=== PATIENT | female | born 1975 | race Caucasian/White ===

== ENCOUNTER 2017-02-14 08:30 | Outpatient (RCR) | payer OTHER, SELFPAY | END 2017-03-15 23:59 | LOC: NS 08:30 | PROVIDERS: Family Provider Family Medicine; PCP Family Medicine; Visit Provider Family Medicine | DX: E66.9 Obesity, unspecified (principal); Z68.21 Body mass index [BMI] 21.0-21.9, adult; Z71.3 Dietary counseling and surveillance | CPT/HCPCS: 97803 ==

== ENCOUNTER → 2017-04-13 08:29 | Outpatient (CLI) | payer OTHER, SELFPAY ==
--- NOTE | 2017-04-13 08:40 | US_ITS ---
STUDY: ABDOMINAL ULTRASOUND - RIGHT UPPER QUADRANT REASON FOR VISIT: Female, 42 years old. Right upper quadrant pain TECHNIQUE: Ultrasound evaluation of the right upper quadrant was performed with real-time and static scott-scale imaging. TECHNICAL QUALITY: Limited. Examination limited by bowel gas. COMPARISON: None. FINDINGS: Liver: The liver measures 13.6 cm. There is normal echogenicity of the liver. The bile ducts are within normal limits. There is hepatic color flow. The direction of portal flow is hepatopetal. There is no demonstrated mass lesion. Gallbladder: Normal distended gallbladder. The gallbladder wall measures 2 mm. There is a negative sonographic Rodas's sign. There is no pericholecystic fluid. There are no gallstones. Common Bile Duct (C.B.D.): The common bile duct measures 3 mm. Pancreas: Normal size of the head, body and tail of the pancreas. There is normal echogenicity of the pancreas. There is no demonstrated pancreatic mass or cyst. Right Kidney: Normal size of the right kidney. The right kidney measures 9.9 cm. Normal renal cortex. The right cortex measures 1.6 cm. There is no demonstrated renal mass or cyst. There is no right hydronephrosis. US/Abdomen Limited IMPRESSION: Normal right upper quadrant ultrasound examination. Electronically Signed: Florentin Reyna MD at 17:30 EST , Service support ,
== END ==
PROVIDERS: Family Provider Family Medicine; PCP Family Medicine; Visit Provider Surgery
DX: R10.11 Right upper quadrant pain (principal)
CPT/HCPCS: 76705

== ENCOUNTER → 2017-04-21 07:13 | Outpatient (CLI) | payer OTHER, SELFPAY ==
--- NOTE | 2017-04-21 07:15 | NM_ITS ---
CLINICAL: 42-year-old female with reported history of right upper quadrant abdominal pain and nausea. RADIONUCLIDE HEPATOBILIARY SCINTIGRAPHY COMPARISON: Abdominal ultrasound report 04/13/2017 FINDINGS: Following the intravenous administration of 5.3 mCi of 99m Tc Mebrofenin, hepatobiliary images reveal: 1. Relatively prompt and homogeneous radiopharmaceutical concentration is noted by a normal sized liver. No parenchymal defects are identified. 2. Gallbladder activity is identified at 45 minutes post radiopharmaceutical administration. 3. Small intestinal tract is observed at 15 minutes following tracer injection. 4. Washout of the radiopharmaceutical by the hepatic parenchyma appears qualitatively normal. The patient was administered a fatty meal (8 ounces BOOST-30 grams fat). The post fatty meal consumption gallbladder ejection fraction calculated at 60 minutes was noted to be 47.0 % (normal greater than 30%). IA/Hepatobilliary Img w/Pharm Int IMPRESSION: 1. NORMAL 99m Tc Mebrofenin hepatobiliary imaging examination with fatty meal ingestion. A. A gallbladder ejection fraction calculated to be greater than 30% following the administration of a consumed fatty meal makes the probability of functional hepatobiliary disease (gallbladder and/or sphincter of Oddi dyskinesia) and/or organic hepatobiliary disease (chronic acalculous cholecystitis and/or cystic duct syndrome) to be low. (Ko and Shahzad, J Nucl Med 43: 1603, 2002). Electronically Signed: Murray Escobar DO at 12:59 EST Tel , Service support ,
== END ==
PROVIDERS: Family Provider Family Medicine; PCP Family Medicine; Visit Provider Surgery
DX: R10.11 Right upper quadrant pain (principal)
CPT/HCPCS: 78227; A9537

== ENCOUNTER 2017-06-05 15:35 | Outpatient (RCR) | payer OTHER, SELFPAY | END 2017-06-12 23:59 | LOC: NS 15:35 | PROVIDERS: Family Provider Family Medicine; PCP Family Medicine; Visit Provider Family Medicine | DX: E66.9 Obesity, unspecified (principal); Z68.21 Body mass index [BMI] 21.0-21.9, adult; Z71.3 Dietary counseling and surveillance | CPT/HCPCS: 97803 ==

== ENCOUNTER → 2017-07-03 16:49 | Outpatient (CLI) | payer OTHER, SELFPAY ==
[2017-07-03 18:36] LABS: Anion Gap 9 (5-15); BUN 12 mg/dL (7-18); BUN/Creat Ratio 25.1 RATIO (10-20); Calcium,Total 8.5 mg/dL (8.5-10.1); Chloride 104 mmol/L (98-107); Creatinine, Serum 0.48 mg/dL (0.55-1.02); EST Glomerular Filtration Rate 150 mL/min (>60); Est Glom Filt Rate - Afr Amer 182 mL/min (>60); Free T3 2.6 pg/mL (2.18-3.98); Glucose 81 mg/dL (74-106); Potassium 3.7 mmol/L (3.5-5.1); Sodium Level 138 mmol/L (136-145); T4 Total, Thyroxin 7.4 ug/dL (4.8-13.9); Thyroid Stim Hormone (TSH) 0.83 uIU/mL (0.358-3.74)
== END ==
PROVIDERS: Family Provider Family Medicine; PCP Family Medicine; Visit Provider Family Medicine
DX: I10 Essential (primary) hypertension (principal); E03.9 Hypothyroidism, unspecified
CPT/HCPCS: 36415; 80048; 84436; 84443; 84481

== ENCOUNTER → 2017-08-23 06:45 | Outpatient (CLI) | payer OTHER, SELFPAY ==
[2017-08-23 08:08] LABS: T4 Free Direct 0.88 ng/dL (0.76-1.46); Thyroid Stim Hormone (TSH) 0.57 uIU/mL (0.358-3.74)
== END ==
PROVIDERS: Family Provider Family Medicine; PCP Family Medicine; Visit Provider Family Medicine
DX: E03.9 Hypothyroidism, unspecified (principal)
CPT/HCPCS: 84439; 84443

== ENCOUNTER → 2017-10-25 07:35 | Outpatient (CLI) | payer OTHER, SELFPAY ==
--- NOTE | 2017-10-25 07:36 | BI_ITS ---
MAMMOGRAPHY - BILATERAL SCREENING REASON FOR EXAM: Female, 42 years old. Routine annual screening examination. PERTINENT HISTORY: Non-contributory. TECHNIQUE: Digital bilateral breast ramona (3D mammographic acquisition) in the CC and MLO projections. 2-D mediolateral oblique (MLO) and craniocaudad (CC) views of both breasts were obtained. CAD: Full Field Digital Mammography with Computer Added Detection was performed. COMPARISON: Comparison is made with prior study dated August 19, 2016 and August 14, 2015. FINDINGS: Breast Composition: The breasts are heterogeneously dense, which may obscure small masses. There are no dominant masses or suspicious calcifications. No other significant abnormalities are identified. There has been no significant change since the prior study. BI/SCREENING MAMM (CAD), BILAT IMPRESSION: Stable bilateral screening mammogram. Yearly follow-up mammogram recommended. (A) ASSESSMENT CATEGORY: BIRADS Category 1: Negative. A letter regarding these results will be sent to the patient by the facility within 30 days. Approximately 10% of breast cancers are not detected by mammography. A normal mammogram should not delay biopsy of a clinically suspicious abnormality. [id number] Electronically Signed: Kedar Hernandez MD at 15:22 EDT Tel [phone], Service support ,
== END ==
PROVIDERS: Family Provider Family Medicine; PCP Family Medicine; Visit Provider Obstetrics & Gynecology
DX: Z12.31 Encounter for screening mammogram for malignant neoplasm of breast (principal)
CPT/HCPCS: 77063; 77067

== ENCOUNTER 2018-04-17 20:59 | Emergency (ER) | payer OTHER, SELFPAY ==
[2018-04-17 21:01] VITALS: BP 150/100; PULSE 77; RESP 16; TEMP 36.7; O2SAT 100; BMI 28.9
--- NOTE | 2018-04-17 21:55 | RAD_ITS ---
STUDY: X-RAY - RIGHT HAND REASON FOR EXAM: Female, 43 years old. Injury of the second finger TECHNIQUE: 3 view(s) of the hand. COMPARISON: None. FINDINGS: Normal radiocarpal articulation. Normal distal radioulnar joint. Normal visualized carpal bones. Normal carpal articulations Normal carpometacarpal articulation of the thumb. Normal second through fifth carpometacarpal joints. Normal metacarpi. Normal metacarpophalangeal joint of the thumb. Normal interphalangeal joint of the thumb. Normal proximal and distal phalanges of the thumb. Normal metacarpophalangeal joints of the second through fifth fingers. Normal proximal and distal interphalangeal joints of the second through fifth fingers. Normal phalanges of the second through fifth fingers. The soft tissue structures are unremarkable. There is no acute fracture. RAD/Hand Min 3 Views IMPRESSION: Normal x-ray examination of the hand. Electronically Signed: Claude Garay MD at 23:03 EST , Service support ,
--- NOTE | 2018-04-17 23:14 | ED.DCSUM_ITS ---
- ER Visit Summary Date of Service: 04/17/18 Chief Complaint: Right index finger injury History of Present Illness: The patient is a 43 F presenting with right index finger injury. Patient states she accidentally slammed her hand in a door. She has a laceration to her right index finger. She is right-handed. Last tetanus is unknown. No other injuries. She is not on anticoagulants. Physical Examination: Vitals are stable. Patient is afebrile. Alert no acute distress. HEENT exam is unremarkable. Neck is supple. Lungs are clear and equal bilaterally. Heart is regular rate and rhythm. Extremities 1.5 cm right index finger flap laceration proximal to nail. Tendon function intact. Normal cap refill. Skin is warm and dry. No focal neurologic deficit. Remainder of exam is unremarkable. Emergency Department Course and Treatment: She was given tetanus IM. X-ray right hand shows no acute process. Laceration was repaired under sterile conditions. Anesthetized with lidocaine. Irrigated with saline. 3, 5-0 simple sutures were placed. Patient tolerated this well. Advised wound care instructions. Advised follow-up with primary care physician. Advised return to ED if worsening complaints. Disposition: Discharge home Impression: Right index finger laceration, laceration repair This note was generated with SOAK ([employer]) dictation software. It may contain incorrect words, spelling, and punctuation that were not noted in review of the chart prior to signing ED Disposition - Plan for ED Patient: Instructions: ED Laceration Hand Referrals: Mando Niño MD [Primary Care Provider] -
[2018-04-17] MEDS: Ondansetron ODT 4 MG Tablet PO (23:47)
[2018-04-17] MEDS: Diphth,Pertuss(Acell),Tet Vac 0.5 ML Vial IM (23:47)
--- NOTE | 2018-04-17 23:48 | ED.DEP ---
ED Disposition - Plan for ED Patient: Instructions: ED Laceration Hand Referrals: Mando Niño MD [Primary Care Provider] -
[2018-04-18 00:15] VITALS: BP 137/95; PULSE 79; RESP 14; O2SAT 98
== END 2018-04-18 00:16 | disposition home or self-care (01) ==
LOC: ED 22:09
PROVIDERS: Emergency Provider Emergency Medicine; Family Provider Family Medicine; PCP Family Medicine
DX: S61.210A Laceration without foreign body of right index finger without damage to nail, initial encounter (principal); W23.0XXA Caught, crushed, jammed, or pinched between moving objects, initial encounter; Y93.9 Activity, unspecified; Y92.9 Unspecified place or not applicable; Y99.9 Unspecified external cause status; Z23 Encounter for immunization
CPT/HCPCS: 12001; 73130; 90471; 90715; 99284

== ENCOUNTER 2018-06-14 06:36 | Emergency (ER) | payer OTHER, SELFPAY ==
[2018-05-14 16:50] VITALS: BMI 28.9
[2018-06-14 06:36] VITALS: BP 182/87; PULSE 90; RESP 18; TEMP 36.8; O2SAT 98; BMI 29.9
--- NOTE | 2018-06-14 06:51 | RAD_ITS ---
STUDY: X-RAY CHEST REASON FOR EXAM: Female, 43 years old. Dyspnea. TECHNIQUE: AP portable chest. COMPARISON: None. FINDINGS: The lungs are clear and expanded. There is no demonstrated pleural abnormality. Normal size heart. Normal mediastinum and erin. Normal visualized pulmonary arteries. Normal visualized aortic arch and descending thoracic aorta. Normal visualized thoracic spine. Normal visualized ribs, clavicles, and shoulders. There is no demonstrated abnormality of the visualized soft tissue structures of the upper abdomen. RAD/Chest 1 View (Portable) IMPRESSION: Normal x-ray examination of the chest. Electronically Signed: Melchor Jackson MD at 8:01 EDT , Service support ,
--- NOTE | 2018-06-14 06:52 | EKG12_ITS ---
Test Reason : PALPS Blood Pressure : / mmHG Vent. Rate : 084 BPM Atrial Rate : 084 BPM P-R Int : 140 ms QRS Dur : 078 ms QT Int : 370 ms P-R-T Axes : 032 -07 007 degrees QTc Int : 437 ms Normal sinus rhythm Normal ECG Confirmed by REFUGIO MONTES DE OCA, CIARA ([id number]), supervising editor news reel LM GARCIA ([id number]) on 06/19/2018 1:50:21 PM Referred By: CROW Confirmed By:CIARA HUFF MD
[2018-06-14 07:01] LABS: Absolute Lymphocyte Count 2.96 X10^3/ul (0.83-4.51); Absolute Neutrophil Count 3.5 X10^3/uL (2.0-7.7); Basophil# 0.05 X10^3/uL; Basophil% 0.7 % (0-1); Eosinophil# 0.25 X10^3/uL; Eosinophils% 3.4 % (0-5); Hematocrit 40.9 % (37-47); Hemoglobin 13.4 g/dl (12.0-15.0); Lymphocyte # 2.96 X10^3/ul (4.0); Lymphocyte % 40.7 % (19-41); Mean Corp Hgb Conc 32.8 g/gl (32-36); Mean Corpuscular Hgb 29.8 pg (27.0-32.0); Mean Corpuscular Volume 91.1 fL (81-99); Mean Platelet Vol. 8.8 fl (6.2-12.0); Monocyte# 0.54 X10^3/uL; Monocyte% 7.4 % (0-10); Neutrophil # 3.47 X10^3/uL (2.7-7.7); Neutrophil % 47.7 % (47-70); Platelet Count 472 K/mm3 (150-450); RBC Distribution Width CV 14.7 % (11.6-14.6); RBC Distribution Width SD 49.4 fl (35.1-43.9); Red Blood Count 4.49 M/mm3 (4.2-5.4); White Blood Count 7.3 K/mm3 (4.4-11.0)
[2018-06-14 07:02] LABS: POSITIVE COUNT NO; POSITIVE DIFFERENTIAL NO; POSITIVE MORPHOLOGY NO
[2018-06-14 07:07] VITALS: BP 125/92; PULSE 71; RESP 13; O2SAT 99
[2018-06-14 07:10] LABS: D-Dimer Quantitative (DVT/PE) 0.31 FEU/ug/m (0.27-0.49)
--- NOTE | 2018-06-14 07:18 | ED.VISSUMM ---
- ER Visit Summary Date of Service: 06/14/18 Chief Complaint: Palpitations History of Present Illness: The patient is a 43 F with intermittent episodes of heart pounding hard for the past couple of weeks. It does seem to be worse with exertion but also occurs at rest. She rarely will have shortness of breath. She also complains of fullness to the left ear. Patient had no change in caffeine intakes and drinks very little caffeine. She does take thyroid medication and has not had her TSH checked in some time. She did restart her blood pressure medication proximal va 2 weeks ago. She has taken the same medication in the past without similar symptoms. Physical Examination: Vital signs on arrival include blood pressure 182/87. Heart rate is 90. Patient sitting upright in bed no acute distress. Head and neck examination unremarkable. TMs are clear bilaterally. Heart is regular rate and rhythm without murmur. Lung sounds are clear. Abdomen is soft and nontender. Test Results: EKG is sinus 84 with no sign of acute ischemia. Portable chest x-ray per my read is unremarkable. CBC and chemistry studies normal. Troponin negative. D-dimer normal. TSH is normal. Emergency Department Course and Treatment: Patient was given maintenance IV fluids. Repeat blood pressure is currently 125/92 with a heart rate of 71. She will speak with Dr. Ayers regarding follow-up. Treatment Plan: [] Disposition: Discharge Impression: Palpitations This note was generated with [employer] dictation software. It may contain incorrect words, spelling, and punctuation that were not noted in review of the chart prior to signing ED Disposition - Plan for ED Patient: Disposition: Home or Assisted Living Instructions: ED Palpitations Referrals: Imtiaz Ayers MD [STAFF PHYSICIAN] -
[2018-06-14 07:20] LABS: Anion Gap 7 (5-15); BUN 20 mg/dL (7-18); BUN/Creat Ratio 28.9 RATIO (10-20); Calcium,Total 8.8 mg/dL (8.5-10.1); Chloride 103 mmol/L (98-107); Creatinine, Serum 0.69 mg/dL (0.55-1.02); EST Glomerular Filtration Rate 98 mL/min (>60); Est Glom Filt Rate - Afr Amer 118 mL/min (>60); Estimated Creatinine Clearance 74.73 ml/min; Glucose 103 mg/dL (74-106); Potassium 3.8 mmol/L (3.5-5.1); Sodium Level 134 mmol/L (136-145)
[2018-06-14] MEDS: 0.9% Normal Saline 1,000 ML 150 ML IV (07:23)
[2018-06-14 07:57] VITALS: BP 142/88; PULSE 80; RESP 20; O2SAT 98
== END 2018-06-14 07:58 | disposition home or self-care (01) ==
PROVIDERS: Emergency Provider Emergency Medicine; Family Provider Family Medicine; PCP Family Medicine
DX: R00.2 Palpitations (principal); I10 Essential (primary) hypertension
CPT/HCPCS: 71045; 80048; 84443; 84484; 85025; 85379; 93005; 96360; 99284; J7030; A4216

== ENCOUNTER → 2018-06-15 10:37 | Outpatient (CLI) | payer OTHER, SELFPAY ==
[2018-06-15 09:37] VITALS: BMI 29.7
== END ==
PROVIDERS: Family Provider Family Medicine; PCP Family Medicine; Referring Provider Internal Medicine Cardiovascular Disease; Visit Provider Internal Medicine Cardiovascular Disease
DX: R00.2 Palpitations (principal); R00.0 Tachycardia, unspecified
CPT/HCPCS: 93225; 93226

== ENCOUNTER → 2018-06-19 10:23 | Outpatient (CLI) | payer OTHER, SELFPAY ==
[2018-06-15 09:37] VITALS: BMI 29.7
--- NOTE | 2018-06-19 12:15 | STRESSREP ---
Stress Test Report Date: 06-19-18 Procedure: Exercise tolerance test Indications: Capitation; chest discomfort Consent: Per the patient Procedure: The patient exercised on a Justen protocol for 12 minutes completing stage IV achieving a peak heart rate of 184 bpm (104 % predicted maximal heart rate) with a peak blood pressure 166/60 mmHg and a peak MET capacity of approximately 13 MET's. The baseline ECG demonstrated normal sinus rhythm. The peak exercise ECG demonstrated no obvious ECG changes. There was an isolated PVC during exercise and recovery. The functional capacity was considered good. The patient had no complaint of chest discomfort during exercise or recovery. The examination was discontinued secondary to dyspnea and leg discomfort. Impression: 1. Technically adequate (percent predicted maximal heart rate greater than 85%) exercise tolerance test 2. Negative (adequate) ECG exercise tolerance test 3. There was an isolated PVC during exercise and recovery This note was generated with Lightwave Poweration software. It may contain incorrect words, spelling, and punctuation that were not noted in checking the note before signing.
== END ==
PROVIDERS: Family Provider Family Medicine; PCP Family Medicine; Referring Provider Internal Medicine Cardiovascular Disease; Visit Provider Internal Medicine Cardiovascular Disease
DX: R00.2 Palpitations (principal); R00.0 Tachycardia, unspecified
CPT/HCPCS: 93017

== ENCOUNTER → 2018-06-20 12:56 | Outpatient (CLI) | payer OTHER, SELFPAY ==
[2018-06-15 09:37] VITALS: BMI 29.7
--- NOTE | 2018-06-20 12:57 | ECHOCS_ITS ---
Reason For Study: Murmur Procedure This was a 2D Doppler, Color Flow transthoracic echocardiogram. The study was technically difficult. Contrast injection was performed. Exam performed in department. Left Ventricle Normal LV size. Left ventricular systolic function is normal. The estimated ejection fraction is 65 %. No evidence for diastolic dysfunction. No regional wall motion abnormalities noted. Right Ventricle Normal RV size. Normal systolic function. Atria Normal left atrium. Normal right atrium. No doppler evidence for ASD. Mitral Valve There is no mitral annular calcification. Mild diffuse mitral valve thickening. Mild mitral valve prolapse, posterior leaflet. Trivial mitral valve insufficiency. Tricuspid Valve Normal tricuspid valve. Trivial tricuspid valve insufficiency. Unable to estimate RV systolic pressure/pulmonary artery pressure due to technically difficult study. Aortic Valve Trisinus/trileaflet aortic valve. Normal aortic valve. Pulmonic Valve The pulmonic valve is not well visualized. Trivial pulmonic valve insufficiency. Great Vessels Normal sized aortic root. Pericardium/Pleural No pericardial effusion. Medication 22 gauge I.V. with prn adaptor inserted into right arm. Diluted definity 2ml given slow IV push to enhance endocardial definition. MMode/2D Measurements & Calculations LVIDd: 4.6 cm IVSd: 0.79 cm Ao root diam: 2.9 cm LVIDs: 2.8 cm LVPWd: 0.77 cm LA dimension: 3.2 cm RVDd: 2.5 cm FS: 38.5 % LAV(MOD-bp): 38.6 ml LA A4 area: 14.7 cm2 RA A4 area: 9.7 cm2 LAV(MOD-bp) Indexed: 23.4 ml/m2 LAV(MOD-sp2): 39.4 ml LAV(MOD-sp4): 34.4 ml Time Measurements MV dec time: 0.19 sec Doppler Measurements & Calculations MV E max adelso: 101.9 cm/sec Lat Peak E' Adelso: 11.6 cm/sec Med Peak E' Adelso: 12.5 cm/sec MV A max adelso: 83.6 cm/sec E/E' lat: 8.8 E/E' med: 8.1 MV E/A: 1.2 MV V2 max: 105.0 cm/sec MV P1/2t max adelso: 102.1 cm/sec Ao V2 max: 139.8 cm/sec MV max P.4 mmHg MV P1/2t: 68.8 msec Ao max P.8 mmHg MV V2 mean: 63.6 cm/sec MV dec slope: 434.7 cm/sec2 Ao V2 mean: 89.1 cm/sec MV mean P.8 mmHg Ao mean P.7 mmHg MV V2 VTI: 23.8 cm MVA(P1/2t): 3.2 cm2 Ao V2 VTI: 26.3 cm LV V1 max: 135.5 cm/sec PA V2 max: 113.6 cm/sec PI dec slope: 150.6 cm/sec2 LV V1 max P.3 mmHg LV V1 mean P.5 mmHg LV V1 mean: 86.3 cm/sec LV V1 VTI: 25.5 cm Interpretation Summary The study was technically difficult. Contrast injection was performed. Left ventricular systolic function is normal. The estimated ejection fraction is 65 %. Mild mitral valve prolapse, posterior leaflet Mild diffuse mitral valve thickening. Trivial mitral valve insufficiency. Trivial tricuspid valve insufficiency. Trivial pulmonic valve insufficiency. Unable to estimate RV systolic pressure/pulmonary artery pressure due to technically difficult study. No evidence for diastolic dysfunction. Ordering Physician: Imtiaz Ayers Referring Physician: Imtiaz Ayers Performed By: Wallace Zimmer RCS
== END ==
PROVIDERS: Family Provider Family Medicine; PCP Family Medicine; Referring Provider Internal Medicine Cardiovascular Disease; Visit Provider Internal Medicine Cardiovascular Disease
DX: R00.2 Palpitations (principal); R00.0 Tachycardia, unspecified
CPT/HCPCS: 93306; Q9957; A4216; C8929

== ENCOUNTER 2018-07-10 11:35 | Outpatient (RCR) | payer OTHER, SELFPAY ==
[2018-06-15 09:37] VITALS: BMI 29.7
== END 2018-07-13 23:59 | disposition home or self-care (01) ==
LOC: NS 11:35
PROVIDERS: Family Provider Family Medicine; PCP Family Medicine; Visit Provider Family Medicine
DX: E66.3 Overweight (principal); Z68.25 Body mass index [BMI] 25.0-25.9, adult; I10 Essential (primary) hypertension; K58.9 Irritable bowel syndrome, unspecified; E78.5 Hyperlipidemia, unspecified; Z71.3 Dietary counseling and surveillance
CPT/HCPCS: 97802

== ENCOUNTER 2018-07-24 13:58 | Outpatient (RCR) | payer SELFPAY ==
[2018-06-15 09:37] VITALS: BMI 29.7
== END 2018-08-12 23:59 ==
LOC: NS 13:58
PROVIDERS: Family Provider Family Medicine; PCP Family Medicine; Visit Provider Family Medicine
DX: E66.9 Obesity, unspecified (principal); R00.2 Palpitations; Z71.3 Dietary counseling and surveillance
CPT/HCPCS: 97803

== ENCOUNTER 2018-08-28 10:30 | Outpatient (RCR) | payer OTHER, SELFPAY ==
[2018-07-27 09:34] VITALS: BMI 29.7
== END 2018-09-12 23:59 | disposition home or self-care (01) ==
LOC: NS 10:30
PROVIDERS: Family Provider Family Medicine; PCP Family Medicine; Visit Provider Family Medicine
DX: E66.9 Obesity, unspecified (principal); I10 Essential (primary) hypertension; K58.9 Irritable bowel syndrome, unspecified; E78.5 Hyperlipidemia, unspecified; E03.9 Hypothyroidism, unspecified; Z71.3 Dietary counseling and surveillance
CPT/HCPCS: 97803

== ENCOUNTER 2018-09-25 10:01 | Outpatient (RCR) | payer OTHER, SELFPAY ==
[2018-07-27 09:34] VITALS: BMI 29.7
== END 2018-10-13 23:59 ==
LOC: NS 10:01
PROVIDERS: Family Provider Family Medicine; PCP Family Medicine; Visit Provider Family Medicine
DX: E66.9 Obesity, unspecified (principal); I10 Essential (primary) hypertension; K58.9 Irritable bowel syndrome, unspecified; E78.5 Hyperlipidemia, unspecified; E03.9 Hypothyroidism, unspecified; Z71.3 Dietary counseling and surveillance
CPT/HCPCS: 97803

== ENCOUNTER → 2018-11-05 07:44 | Outpatient (CLI) | payer OTHER, SELFPAY ==
[2018-07-27 09:34] VITALS: BMI 29.7
[2018-11-05 09:26] LABS: AST(SGOT) 19 U/L (15-37); Alanine Aminotransfer ALT/SGPT 18 U/L (13-56); Albumin, Serum 3.7 g/dL (3.2-5.0); Alkaline Phosphatase 66 U/L (45-117); Bilirubin, Direct 0.07 mg/dL (0.00-0.30); Cholesterol 291 mg/dL (200); Globulin 3.5 g/dL (2.2-4.2); High Density Lipoprotein 49 mg/dL; Protein, Total 7.2 g/dL (6.4-8.2); Triglycerides 343 mg/dL; Very Low Density Lipoprotein 69 mg/dL (5-40)
== END ==
PROVIDERS: Family Provider Family Medicine; PCP Family Medicine; Referring Provider Internal Medicine Cardiovascular Disease; Visit Provider Internal Medicine Cardiovascular Disease
DX: E78.5 Hyperlipidemia, unspecified (principal)
CPT/HCPCS: 36415; 80061; 80076

== ENCOUNTER → 2018-12-25 06:09 | Outpatient (CLI) | payer OTHER, SELFPAY ==
[2018-11-07 11:15] VITALS: BMI 31.0
[2018-12-25 07:28] LABS: AST(SGOT) 17 U/L (15-37); Alanine Aminotransfer ALT/SGPT 25 U/L (13-56); Albumin, Serum 3.7 g/dL (3.2-5.0); Alkaline Phosphatase 73 U/L (45-117); Bilirubin, Direct < 0.05 mg/dL (0.00-0.30); Cholesterol 200 mg/dL (200); Globulin 3.7 g/dL (2.2-4.2); High Density Lipoprotein 59 mg/dL; Protein, Total 7.4 g/dL (6.4-8.2); Triglycerides 215 mg/dL; Very Low Density Lipoprotein 43 mg/dL (5-40)
[2018-12-25 07:29] LABS: T4 Free Direct 0.89 ng/dL (0.76-1.46); Thyroid Stim Hormone (TSH) 0.86 uIU/mL (0.358-3.74)
== END ==
PROVIDERS: Family Provider Family Medicine; PCP Family Medicine; Referring Provider Internal Medicine Cardiovascular Disease; Visit Provider Internal Medicine Cardiovascular Disease
DX: E03.9 Hypothyroidism, unspecified (principal); E78.00 Pure hypercholesterolemia, unspecified
CPT/HCPCS: 36415; 80061; 80076; 84439; 84443

== ENCOUNTER → 2019-01-24 12:26 | Outpatient (CLI) | payer OTHER, SELFPAY ==
[2018-07-27 09:34] VITALS: BMI 29.7
[2018-11-07 11:15] VITALS: BMI 31.0
--- NOTE | 2019-01-24 12:29 | BI_ITS ---
MAMMOGRAPHY - BILATERAL SCREENING REASON FOR EXAM: Female, 43 years old. Routine annual screening examination. PERTINENT HISTORY: Non-contributory. TECHNIQUE: Digital bilateral breast relily (3D mammographic acquisition) in the CC and MLO projections. 2-D mediolateral oblique (MLO) and craniocaudad (CC) views of both breasts were obtained. CAD: Full Field Digital Mammography with Computer Added Detection was performed. COMPARISON: Comparison is made with prior examination dated October 25, 2017 and August 19, 2016. FINDINGS: Breast Composition: The breasts are heterogeneously dense, which may obscure small masses. There are no dominant masses or suspicious calcifications. Stable small bilateral axillary lymph nodes. No other significant abnormalities are identified. There has been no significant change since the prior study. BI/SCREEN MAMM (CAD) W/REILLY BILAT IMPRESSION: Stable bilateral screening mammogram. Yearly follow-up mammogram recommended. (A) ASSESSMENT CATEGORY: BIRADS Category 2: Benign. A letter regarding these results will be sent to the patient by the facility within 30 days. Approximately 10% of breast cancers are not detected by mammography. A normal mammogram should not delay biopsy of a clinically suspicious abnormality. [id number] Electronically Signed: Kedar Hernandez, at 14:18 EST , Service support ,
== END ==
PROVIDERS: Family Provider Family Medicine; PCP Family Medicine; Referring Provider Obstetrics & Gynecology; Visit Provider Obstetrics & Gynecology
DX: Z12.31 Encounter for screening mammogram for malignant neoplasm of breast (principal)
CPT/HCPCS: 77063; 77067

== ENCOUNTER → 2019-07-24 07:46 | Outpatient (CLI) | payer OTHER, SELFPAY ==
[2019-01-24 13:49] VITALS: BMI 31.0
--- NOTE | 2019-07-24 07:49 | RAD_ITS ---
STUDY: X-RAY - RIGHT SHOULDER REASON FOR EXAM: Female, 44 years old. PAIN. HX FALL TECHNIQUE: 4 view(s) of the shoulder. COMPARISON: None. FINDINGS: Normal glenohumeral articulation. Normal acromioclavicular joint. Normal acromion. Normal humeral head and visualized proximal humerus. The soft tissue structures are unremarkable. Normal visualized pulmonary apex. RAD/Shoulder min 2 Views IMPRESSION: Normal x-ray examination of the shoulder. Electronically Signed: Kedar Hernandez, at 9:28 EDT , Service support ,
== END ==
PROVIDERS: PCP Family Medicine; Referring Provider Specialist; Visit Provider Specialist
DX: M25.511 Pain in right shoulder (principal)
CPT/HCPCS: 73030

== ENCOUNTER → 2019-11-09 07:35 | Outpatient (CLI) | payer OTHER, SELFPAY ==
[2019-10-09 10:44] VITALS: BMI 33.3
--- NOTE | 2019-11-09 07:45 | MRI_ITS ---
STUDY: MRI RIGHT SHOULDER REASON FOR EXAM: Female, 44 years old. RIGHT shoulder impingement, pain with lifting of arm, fall in February TECHNIQUE: Standardized fat and water weighted pulse sequences were obtained in all 3 orthogonal planes. COMPARISON: X-ray July 24, 2019 FINDINGS: Normal supraspinatus tendon. Normal infraspinatus tendon. Normal subscapularis tendon. Normal teres minor tendon. Normal supraspinatus muscle. Normal infraspinatus muscle. Normal subscapularis muscle. Normal teres minor muscle. Normal glenohumeral articulation. There is mild edema of the anterior lateral humeral head, series 2 image 10/20. Normal biceps labral complex. There is tendinosis with thickening of the proximal long head of the biceps tendon, but without a demonstrated tear. Tear of the the superior labrum adjacent to the biceps anchor, series 4 images 11 through 13. Normal capsulo- ligamentous complex. Normal rotator interval. Normal acromioclavicular articulation. There is a Type II morphology (curved) acromion, with a neutral orientation. There is no subacromial-subdeltoid bursal fluid. Normal visualized coracohumeral and coracoacromial ligaments. Normal quadrilateral space. Normal axillary space. Normal deltoid muscle. Normal trapezius muscle. MRI/Upper Ext Joint Only(Routine) IMPRESSION: No rotator cuff tear. SLAP lesion tear of the superior labrum. Tendinosis of the proximal long head of the biceps. Electronically Signed: Claude Garay MD at 9:09 EDT , Service support ,
== END ==
PROVIDERS: PCP Family Medicine; Referring Provider Physician Assistant; Visit Provider Physician Assistant
DX: M75.41 Impingement syndrome of right shoulder (principal)
CPT/HCPCS: 73221

== ENCOUNTER 2019-11-11 11:00 | Outpatient (RCR) | payer OTHER, SELFPAY ==
[2019-10-09 10:44] VITALS: BMI 33.3
== END 2019-11-11 23:59 | disposition home or self-care (01) ==
LOC: NS 11:00
PROVIDERS: PCP Family Medicine; Visit Provider Internal Medicine Cardiovascular Disease
DX: Z71.3 Dietary counseling and surveillance (principal); E78.00 Pure hypercholesterolemia, unspecified
CPT/HCPCS: 97802; 97803

== ENCOUNTER 2019-11-27 16:30 | Outpatient (RCR) | payer OTHER, SELFPAY ==
[2019-10-09 10:44] VITALS: BMI 33.3
--- NOTE | 2019-11-15 08:29 | HP.PTEVAL_ITS ---
Patient's Visit Information PRISCILA YAP is a 44 year old F referred to Physical Therapy by Keaton Rodriguez PA-C with a diagnosis of SPRAIN OF RIGHT SHOULDER JOINT. Date of Evaluation: 11/15/19 Physical Therapist: Saran Malone, PT, Cert MDT, OCS - Visit Plan Frequency: 2x /Week Duration: 4 Weeks Plan: PT INTERVENTIONS RTC/SCAPULAR STRENGTHENING,POSTURAL EX'S,MODALTIE - Subjective This 44 y/o female presents to physical therapy with right shoulder . Patient stated that she fell in Feb 2019 on ice. Patient felt in subluxed immediated pain . Patient symptoms became worse with covid started to loose ROM and strength. Patient seen DR 1 month ago . Patient had MRI Monday showed labral slap tear. Patient had injection 2 days whiched helped.Patient condtion affects with aggraveating factors [place] with lifting ,ADL's and housework tasks/job demnads . Difficulty with sleeping on side ,reaching behins back ,with pain decrsibed as ache. Patient symptoms affects QOL and function. SOCIAL: . 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 PALPATION: unremarkable. NEURO: intact. AROM: shoulder flexion 160 degrees,abduction 160 degrees,ER 80 IR L2 ,PROM with op increases pain. MMT: RTC 4/5,deltoid 4-/5,scapular strength 3+/5 - Special Tests R Shoulder External Rotation Lag Test - RC Tear: Negative R Shoulder Supine Impingement Test - RC Tear: Negative R Shoulder Lift Off Test - Subscapular Tear: Negative R Shoulder Drop Sign - IS Test: Negative R Shoulder Empty Can - SS: Negative R Shoulder Belly Press - SupScap: Negative R Shoulder Neer - Impingement: Positive R Shoulder Blank Deepak - Impingement: Positive R Shoulder Yeargasons - SLAP: Positive R Shoulder Apprehension/Relocaton - SLAP: Positive - Goals Goal 1:: I with HEP. Goal Time Frame: 4-6 Weeks Goal 2:: Patient to decrease pain with functional movements by 75% or > to improve function Goal Time Frame: 4-6 Weeks Goal 3:: Patient to increase strength of shoulder RTC and deltoid 5/5 to improve function with activities above 90 degrees Goal Time Frame: 4-6 Weeks Goal 4:: Patient to improve quick dash by 5 points or > to improve QOL. Goal Time Frame: 4-6 Weeks - Rehabilitation Potential Physical Therapy Diagnosis: This patient slipped fell on ice on right arm cuased SLAP tear with pain ,weakness impairs job demands and housework tasks thus benifit from skilled PT Rehabilitation Potential: Good - Anticipated Interventions Patient/Client Instruction: Educate patient on: Condition, Plan of Care For the Purpose of:: To decrease pain, To increase ROM, To improve nutrient delivery to tissue, To increase oxygenation perfusion, To improve muscle performance and motor function, To increase tolerance to activity/condition/position, To improve performance and independence with ADL's, To improve ability of physical actions for home/community/work/leisure, To improve health of tissue, To decrease soft tissue restriction, To improve ability to perform tasks related to life management Therapeutic Exercise to Include: Strength training, Postural training, Scapular Strength/Stabilization For the Purpose of:: To decrease pain, To decrease swelling/inflammation, To improve muscle performance and motor function, To improve ability to perform ADL's, To increase tolerance to activity/condition/position, To improve performance and independence with ADL's, To improve ability of physical actions for home/community/work/leisure, To improve ability to perform tasks related to life management TENS: Yes IF ES: Yes Cryotherapy (ice pack, ice massage): Yes Thermo therapy (hot pack): Yes Ultrasound (thermal/non thermal): Yes For the Purpose of:: To decrease pain, To increase ROM, To improve nutrient delivery to tissue, To increase oxygenation perfusion, To improve health of tissue, To decrease soft tissue restriction Thank you for the opportunity to evaluate your patient. For Medicare and Medicare HMO plans, please review the plan of care and approve it. It will need to be FAXED BACK to us at [phone] for Medicare purposes. For Medicare only, by signing this I certify the plan of care. Please let me know if there are questions or concerns regarding this plan of care. Physician Sign ature: Date:
--- NOTE | 2020-01-22 08:49 | HP.PTDCNRP_ITS ---
PRISCILA YAP was seen in my office for initial evaluation on 11/15/19. The following Plan of Care was established for this patient: Initial Frequency: 2x /Week Initial Duration: 4 Weeks Patient/Client Instruction: Educate patient on: Condition, Plan of Care For the Purpose of:: To decrease pain, To increase ROM, To improve nutrient delivery to tissue, To increase oxygenation perfusion, To improve muscle performance and motor function, To increase tolerance to activity/condi tion/position, To improve performance and independence with ADL's, To improve ability of physical actions for home/community/work/leisure, To improve health of tissue, To decrease soft tissue restriction, To improve ability to perform tasks related to life management Therapeutic Exercise to Include: Strength training, Postural training, Scapular Strength/Stabilization For the Purpose of:: To decrease pain, To decrease swelling/inflammation, To improve muscle performance and motor function, To improve ability to perform ADL's, To increase tolerance to activity/condition/position, To improve performance and independence with ADL's, To improve ability of physical actions for home/community/work/leisure, To improve ability to perform tasks related to life management TENS: Yes IF ES: Yes Cryotherapy (ice pack, ice massage): Yes Thermo therapy (hot pack): Yes Ultrasound (thermal/non thermal): Yes For the Purpose of:: To decrease pain, To increase ROM, To improve nutrient delivery to tissue, To increase oxygenation perfusion, To improve health of tissue, To decrease soft tissue restriction This patient was last seen in our office 11/27/19. Pertinent comments regarding their Physical therapy will appear below: Patient was seen for PT for shoulder pain for strengthening,RTC/scapulr strengthneing thus is d/c to HEP. At this point I will be discontinuing this patient from physical therapy. I would be happy to see this patient again in the future if found appropriate by the physician. Thank you! Saran Malone, PT, Cert MDT, OCS
== END 2019-11-27 19:00 | disposition home or self-care (01) ==
LOC: PT 16:30
PROVIDERS: PCP Family Medicine; Referring Provider Physician Assistant; Visit Provider Physician Assistant
DX: S43.491D Other sprain of right shoulder joint, subsequent encounter (principal)
CPT/HCPCS: 97014; 97110; 97162; G0283

== ENCOUNTER → 2020-01-27 08:14 | Outpatient (CLI) | payer OTHER, SELFPAY ==
[2019-08-08 11:21] VITALS: BMI 31.0
[2019-10-09 10:44] VITALS: BMI 33.3
--- NOTE | 2020-01-27 08:36 | BI_ITS ---
MAMMOGRAPHY - BILATERAL SCREENING REASON FOR EXAM: Female, 44 years old. Routine annual screening examination. PERTINENT HISTORY: Non-contributory. TECHNIQUE: Digital bilateral breast reilly (3D mammographic acquisition) in the CC and MLO projections. 2-D mediolateral oblique (MLO) and craniocaudad (CC) views of both breasts were obtained. CAD: Full Field Digital Mammography with Computer Added Detection was performed. COMPARISON: Comparison is made with prior study dated 01/24/2019 and 10/25/2017. FINDINGS: Breast Composition: The breasts are heterogeneously dense, which may obscure small masses. There are no dominant masses or suspicious calcifications. Stable benign-appearing bilateral axillary lymph nodes. No other significant abnormalities are identified. There has been no significant change since the prior study. BI/SCREEN MAMM (CAD) W/REILLY BILAT IMPRESSION: Stable bilateral screening mammogram. Yearly follow-up mammogram recommended. (A) ASSESSMENT CATEGORY: BIRADS Category 2: Benign. A letter regarding these results will be sent to the patient by the facility within 30 days. Approximately 10% of breast cancers are not detected by mammography. A normal mammogram should not delay biopsy of a clinically suspicious abnormality. [id number] Electronically Signed: Kedar Hernandez, at 10:18 EST , Service support ,
== END ==
PROVIDERS: PCP Family Medicine; Referring Provider Obstetrics & Gynecology; Visit Provider Obstetrics & Gynecology
DX: Z12.31 Encounter for screening mammogram for malignant neoplasm of breast (principal)
CPT/HCPCS: 77063; 77067

== ENCOUNTER → 2020-01-28 16:09 | Outpatient (CLI) | payer OTHER, SELFPAY ==
[2020-01-28 13:26] VITALS: BMI 32.7
[2020-01-31 20:38] LABS: HPV APTIMA, High Risk Negative (Negative)
== END ==
PROVIDERS: PCP Family Medicine; Referring Provider Nurse Practitioner Women's Health; Visit Provider Nurse Practitioner Women's Health
DX: Z12.4 Encounter for screening for malignant neoplasm of cervix (principal)
CPT/HCPCS: 87624; 88175; G0145

== ENCOUNTER 2020-09-15 17:00 | Outpatient (RCR) | payer OTHER, SELFPAY ==
[2020-01-28 13:26] VITALS: BMI 32.7
--- NOTE | 2020-08-27 17:11 | HP.PTEVAL ---
Patient's Visit Information PRISCILA YAP is a 45 year old F referred to Physical Therapy by Dr. Angeles Foreman DPM with a diagnosis of Plantarfasciitis. Date of Evaluation: 08/27/20 Physical Therapist: Miah Mai DPT, OCS, CSCS - Visit Plan Frequency: one more for dispensing Plan: call when orthotics in for dispensal - Subjective Pfitis is chronic adn sees Dr. Foreman intermittently. I like to go barefoot. No bone spurs. No regular orthotics now but has had them in the past that she liked, they were firm. Pain is achy most days.Sleep is OK. Hard to walk in the morning. Worse if on feet all day at work, standing too long. Try orthtoics first. Has night splint, stretches regularly when she thinks about it. - Pain arches Pain Intensity (Out of 10): 1 Pain Intensity Range: 0, 4, 6 - Objective Walks normal today and good balance. AROM B ankles WFL, some tightness evident in gastroc. 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 - Goals Goal 1:: fit and dispensed custom orthotic per doctor recommendation and patient desire. Goal Time Frame: 2-4 Weeks - Rehabilitation Potential Physical Therapy Diagnosis: Plantarfasciitis Rehabilitation Potential: Fair - Anticipated Interventions Orthotics: Shoe insert For the Purpose of:: To decrease pain Thank you for the opportunity to evaluate your patient. For Medicare and Medicare HMO plans, please review the plan of care and approve it. It will need to be FAXED BACK to us at [phone] for Medicare purposes. For Medicare only, by signing this I certify the plan of care. Please let me know if there are questions or concerns regarding this plan of care. Physician Signature: Date:
--- NOTE | 2020-09-15 17:14 | HP.PTDCSUM ---
It has been my pleasure to treat PRISCILA YAP referred by Dr. Angeles Foreman, ALANAM, with the diagnosis of Plantarfasciitis for a total of 2 visit(s). Discharge Date: 09/15/20 Please see the following information for a summary of their discharge status. Subjective: Some pain [place]. Will call docor after she has had them in for a few weeks. arches Pain Intensity (Out of 10): 1 % Improvement: 0 Objective/Function: good fit in shoe and very supportive. Pt seemed to understand the weaning process and orthotic care. Goal 1:: fit and dispensed custom orthotic per doctor recommendation and patient desire. Goal Progress: Goal Met Plan: d/c If there are questions or concerns regarding this patient's physical therapy, please feel free to call me at [phone]. Thank you for the referral of this patient. Sincerely, Miah Mai, DPT, OCS, CSCS
== END 2020-09-15 19:00 | disposition home or self-care (01) ==
LOC: PT 17:00
PROVIDERS: PCP Family Medicine; Visit Provider Podiatrist
DX: M72.2 Plantar fascial fibromatosis (principal)
CPT/HCPCS: 97161; 97760; 97763

== ENCOUNTER → 2020-10-29 10:04 | Outpatient (CLI) | payer OTHER, SELFPAY ==
[2020-10-29 10:06] LABS: Mucous, Urine 0 SEEN /hpf (<or=2+)
[2020-10-29 10:12] LABS: Color, Urine Yellow (Yellow); Glucose, Dipstick Normal (Normal); Ketone-Dipstick Negative (Negative); Leukocyte Esterase-Dipstick 500 /ul (Negative); Nitrite-Dipstick Negative (Negative); Occult Blood-Urine 50 /ul (Negative); Protein-Dipstick 30 mg/dl (Negative); Urine Bilirubin Dipstick Negative (Negative); Urine Clarity Sl. Cloudy (Clear); Urine Urobilinogen Normal (Normal)
[2020-10-29 10:27] LABS: Bacteria 1+ /hpf (None Seen); Red Blood Cells-Urine 5-10 SEEN /hpf (0-5); Squamous Epithelial Cells - UA 5-10 SEEN /hpf (5-10); White Blood Cells 25-50 SEEN /hpf (0-5)
== END ==
PROVIDERS: PCP Family Medicine; Visit Provider Physician Assistant
DX: N39.0 Urinary tract infection, site not specified (principal)
CPT/HCPCS: 81001; 87077; 87086; 87088; 87186

== ENCOUNTER → 2021-01-11 09:42 | Outpatient (CLI) | payer OTHER, SELFPAY ==
[2021-01-11 11:12] LABS: T4 Free Direct 0.98 ng/dL (0.76-1.46); Thyroid Stim Hormone (TSH) 0.58 uIU/mL (0.358-3.74)
== END ==
PROVIDERS: PCP Family Medicine; Referring Provider Family Medicine; Visit Provider Family Medicine
DX: E03.9 Hypothyroidism, unspecified (principal)
CPT/HCPCS: 36415; 84439; 84443

== ENCOUNTER 2021-01-12 13:02 | Outpatient (RCR) | payer OTHER, SELFPAY | END 2021-01-12 23:59 | disposition home or self-care (01) | LOC: NS 13:02 | PROVIDERS: PCP Family Medicine; Visit Provider Family Medicine | DX: Z71.3 Dietary counseling and surveillance (principal); E66.3 Overweight | CPT/HCPCS: 97802 ==

== ENCOUNTER 2021-02-15 11:34 | Outpatient (RCR) | payer OTHER, SELFPAY | END 2021-03-15 23:59 | LOC: NS 11:34 | PROVIDERS: PCP Family Medicine; Visit Provider Family Medicine | DX: E66.3 Overweight (principal) | CPT/HCPCS: 97803 ==

== ENCOUNTER 2021-02-22 14:11 | Outpatient (CLI) | payer OTHER, SELFPAY ==
--- NOTE | 2021-02-22 14:14 | US_ITS ---
STUDY: ULTRASOUND OF THE FEMALE PELVIS - COMPLETE REASON FOR EXAM: Female, 45 years old. Irregular menses LMP: 02/05/2021. TECHNIQUE: Transabdominal and Transvaginal TECHNICAL QUALITY: Adequate. COMPARISON: None. FINDINGS: The uterus is anteverted and is in a midline position. The uterus measures 8.4 cm x 4.8 cm x 4 cm. There is a Nabothian cyst of the cervix. The endometrium measures 11 mm in thickness, and is hyperechoic. There is no demonstrated endometrial mass. 2 small uterine fibroids are seen. The larger measures 1.8 cm x 1.7 cm x 1.6 cm. The myometrium is of heterogeneous echotexture. There is a 9 mm x 8 mm x 5 mm cyst within the myometrium. I.U.D. - The patient does not have an I.U.D. The right ovary is visualized. The right ovary measures 3.1 cm x 3.3 cm x 1.9 cm. There is no right ovarian cyst or ovarian mass. There is no visualized right adnexal mass or complex lesion. There is normal arterial and normal venous vascularity. The left ovary is visualized. The left ovary measures 4.6 cm x 4.2 cm x 1.7 cm. There is a dominant follicle in the left ovary measuring 1.7 cm x 1.6 x 1.7 cm. There is no visualized left adnexal mass or complex lesion. There is normal arterial and normal venous vascularity. There is no fluid in the cul-de-sac. The pre void volume of the bladder was 325 ml. US/Transvaginal Non- IMPRESSION: Heterogeneous appearance of the myometrium with 2 small fibroids. Dominant follicle in the left ovary. Electronically Signed: Kedar Hernandez MD at 15:27 EST , Service support ,
--- NOTE | 2021-02-22 14:14 | US_ITS ---
STUDY: ULTRASOUND OF THE FEMALE PELVIS - COMPLETE REASON FOR EXAM: Female, 45 years old. Irregular menses LMP: 02/05/2021. TECHNIQUE: Transabdominal and Transvaginal TECHNICAL QUALITY: Adequate. COMPARISON: None. FINDINGS: The uterus is anteverted and is in a midline position. The uterus measures 8.4 cm x 4.8 cm x 4 cm. There is a Nabothian cyst of the cervix. The endometrium measures 11 mm in thickness, and is hyperechoic. There is no demonstrated endometrial mass. 2 small uterine fibroids are seen. The larger measures 1.8 cm x 1.7 cm x 1.6 cm. The myometrium is of heterogeneous echotexture. There is a 9 mm x 8 mm x 5 mm cyst within the myometrium. I.U.D. - The patient does not have an I.U.D. The right ovary is visualized. The right ovary measures 3.1 cm x 3.3 cm x 1.9 cm. There is no right ovarian cyst or ovarian mass. There is no visualized right adnexal mass or complex lesion. There is normal arterial and normal venous vascularity. The left ovary is visualized. The left ovary measures 4.6 cm x 4.2 cm x 1.7 cm. There is a dominant follicle in the left ovary measuring 1.7 cm x 1.6 x 1.7 cm. There is no visualized left adnexal mass or complex lesion. There is normal arterial and normal venous vascularity. There is no fluid in the cul-de-sac. The pre void volume of the bladder was 325 ml. US/Pelvic (Non ) IMPRESSION: Heterogeneous appearance of the myometrium with 2 small fibroids. Dominant follicle in the left ovary. Electronically Signed: Kedar Hernandez MD at 15:27 EST , Service support ,
== END 2021-02-22 23:59 | disposition short-term general hospital (02) ==
LOC: US 14:13
PROVIDERS: PCP Family Medicine; Referring Provider Nurse Practitioner Women's Health; Visit Provider Nurse Practitioner Women's Health
DX: N92.6 Irregular menstruation, unspecified (principal)
CPT/HCPCS: 76830; 76856

== ENCOUNTER 2021-03-16 11:52 | Outpatient (CLI) | payer OTHER, SELFPAY ==
--- NOTE | 2021-03-16 10:45 | EMB_PTH ---
PATIENT: PRISCILA YAP LOC: [facility] U#:[id number] AGE/SX: 45/F ROOM: RE03/16/[address]: MEHUL Resendiz : 1975 BED: DIS: 03/16/2021 SPEC #: [id number] RECD: 03/16/21 11:47 STATUS: REJI RENaresh #: [id number] JACY: 03/16/21 10:[address]: Kallie Chisholm NP DEPT: SURGICAL PATHOLOGY RECD BY: Mariah Chacon ENTERED: 03/16/21 12:41 SP TYPE: ENDOM BX/C CHRISTOPH DR: Dr. Yoandy Niño MD Tissues: Endometrium, NOS Procedures: Surgery Specimen Level IV HEADER OPERATION: Endometrial biopsy PRE-OP DIAGNOSIS: Abnormal uterine bleeding TISSUE SUBMITTED: Endometrial biopsy MICROSCOPIC DIAGNOSIS Endometrium, biopsy: Disordered proliferative endometrium. Mild chronic endometritis. AM:salvatore 03/17/2021 MICROSCOPIC DESCRIPTION Slides are reviewed. GROSS DESCRIPTION Received is one container labeled with the patient's name and not further designated. The specimen consists of multiple irregular fragments of light hernandez soft tissue that in aggregate measure 2.5 x 2 x 0.2 cm. The specimen is totally submitted in one cassette. / AM:salvatore 03/16/2021 TC:5 CPT: 03972
== END 2021-03-16 23:59 | disposition short-term general hospital (02) ==
LOC: LABSPEC 12:33
PROVIDERS: PCP Family Medicine; Visit Provider Nurse Practitioner Women's Health
DX: N93.9 Abnormal uterine and vaginal bleeding, unspecified (principal)
CPT/HCPCS: 88305

== ENCOUNTER → 2021-09-15 | Outpatient (CLI) | payer OTHER, SELFPAY ==
[2021-09-15 10:38] LABS: Color, Urine Yellow (Yellow); Glucose, Dipstick Normal (Normal); Ketone-Dipstick Negative (Negative); Leukocyte Esterase-Dipstick Negative /ul (Negative); Nitrite-Dipstick Positive (Negative); Occult Blood-Urine 10 /ul (Negative); Protein-Dipstick Negative (Negative); Specific Gravity, Urine 1.005 (1.002-1.030); Urine Bilirubin Dipstick Negative (Negative); Urine Clarity Sl. Cloudy (Clear); Urine Urobilinogen Normal (Normal)
== END | disposition home or self-care (01) ==
LOC: LAB 10:23
PROVIDERS: PCP Family Medicine; Referring Provider Family Medicine; Visit Provider Family Medicine
DX: R30.0 Dysuria (principal)
CPT/HCPCS: 81002

== ENCOUNTER → 2021-11-02 | Outpatient (CLI) | payer OTHER, SELFPAY ==
--- NOTE | 2021-11-02 16:16 | RAD_ITS ---
STUDY: X-RAY - LEFT FOOT CLINICAL: Female, 46 years old. Pain. Pain most marked in the first and second toes. TECHNIQUE: 3 weight bearing view(s) of the foot. COMPARISON: None. FINDINGS: Normal talus, calcaneus, and tarsal bones. Normal visualized subtalar, talonavicular, calcaneocuboid, tarsal and tarsometatarsal articulations. Normal metatarsi. There is minimal degenerative arthrosis of the metatarsophalangeal joint of the hallux . Normal tibial and fibular sesamoid bones. Normal interphalangeal joint of the great toe. Normal phalanges of the great toe. Normal second through fifth metatarsophalangeal joints. Normal interphalangeal joints and phalanges of the lesser toes. The soft tissue structures are unremarkable. RAD/Foot min 3 Views IMPRESSION: No acute fracture or dislocation. Minimal degenerative changes at the first metatarsophalangeal joint. Electronically Signed: Harshad Valdovinos DO at 21:38 EDT ,
== END | disposition home or self-care (01) ==
LOC: MTRAD 16:15
PROVIDERS: PCP Family Medicine; Referring Provider Podiatrist; Visit Provider Podiatrist
DX: M77.9 Enthesopathy, unspecified (principal)
CPT/HCPCS: 73630

== ENCOUNTER 2022-01-14 09:00 | Outpatient (RCR) | payer OTHER, SELFPAY ==
--- NOTE | 2021-12-03 12:25 | HP.PTEVAL ---
Patient's Visit Information PRISCILA YAP is a 46 year old F referred to Physical Therapy by Dr. Angeles Foreman DPM with a diagnosis of PFitis. Date of Evaluation: 12/03/21 Physical Therapist: Miah Mai DPT, OCS, CSCS - Visit Plan Plan: molded and sent for orhtoics,call when they come in for fitting. - Subjective Dr. Foreman wants orthotics adjusted, Had orthotics for a long time for PFitis and it is fine. now toes hurt. 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 Messing with this pain with foot doctor for 6 months. Trieded new shoes but doctor wants orthoitcs modified to support all metatarsal heads with relief on the second adn smooth the transition from 1st MT to phalanges. Keep the arch. - Pain 2nd met head L foot Pain Intensity (Out of 10): 0 Pain Intensity Range: 0, 2 - Objective Walks normal with some discomfort in L 2nd MT head area. 1st MT is stiff into toe and she has been stretching it but it does not move well. Has tenderness over 2nd Met head with extension but better today then recently as she is on prednisone. - Goals Goal 1:: fit for orthoitcs to hel with pain. Goal Time Frame: 2-4 Weeks - Rehabilitation Potential Physical Therapy Diagnosis: Pfitis Rehabilitation Potential: Good - Anticipated Interventions Orthotics: Shoe insert For the Purpose of:: To decrease pain Thank you for the opportunity to evaluate your patient. For Medicare and Medicare HMO plans, please review the plan of care and approve it. It will need to be FAXED BACK to us at [phone] for Medicare purposes. For Medicare only, by signing this I certify the plan of care. Please let me know if there are questions or concerns regarding this plan of care. Physician Signature: Date:
--- NOTE | 2022-03-21 07:56 | HP.PT.NRP ---
PRISCILA YAP was seen in my office for initial evaluation on 12/03/21. The following Plan of Care was established for this patient: Orthotics: Shoe insert For the Purpose of:: To decrease pain This patient was last seen in our office 01/14/22. Pertinent comments regarding their Physical therapy will appear below: Pt seen for orthotic molding and then again for revision. At this point, we have revised her orthotics and distributed them to her and she will call if further concerns. i will discontinue her from therapy. At this point I will be discontinuing this patient from physical therapy. I would be happy to see this patient again in the future if found appropriate by the physician. Thank you! Miah Mai, DPT, OCS, CSCS
== END 2022-01-14 19:00 | disposition home or self-care (01) ==
LOC: PT 09:00
PROVIDERS: PCP Family Medicine; Referring Provider Podiatrist; Visit Provider Podiatrist
DX: M77.40 Metatarsalgia, unspecified foot (principal)
CPT/HCPCS: 97161; 97760

== ENCOUNTER → 2022-01-17 | Outpatient (CLI) | payer OTHER, SELFPAY ==
[2022-01-17 11:55] LABS: Ferritin 14 ng/mL (8-252); Iron 94 ug/dL (50-170); Thyroid Stim Hormone (TSH) 0.87 uIU/mL (0.358-3.74)
== END | disposition home or self-care (01) ==
LOC: LAB 09:27
PROVIDERS: PCP Family Medicine; Visit Provider Family Medicine
DX: E03.9 Hypothyroidism, unspecified (principal); G25.81 Restless legs syndrome
CPT/HCPCS: 36415; 82728; 83540; 84439; 84443

== ENCOUNTER → 2022-04-05 | Outpatient (CLI) | payer OTHER, SELFPAY ==
--- NOTE | 2022-04-05 11:53 | BI_ITS ---
MAMMOGRAPHY - BILATERAL SCREENING REASON FOR EXAM: Female, 47 years old. Routine annual screening examination. PERTINENT HISTORY: Non-contributory. TECHNIQUE: Digital bilateral breast reilly (3D mammographic acquisition) in the CC and MLO projections. 2-D mediolateral oblique (MLO) and craniocaudad (CC) views of both breasts were obtained. CAD: Full Field Digital Mammography with Computer Added Detection was performed. COMPARISON: Comparison is made with prior study dated 02/17/2021 and 01/27/2020. FINDINGS: Breast Composition: The breasts are heterogeneously dense, which may obscure small masses. There are no dominant masses or suspicious calcifications. Stable small benign-appearing bilateral axillary lymph nodes. No other significant abnormalities are identified. There has been no significant change since the prior study. BI/SCRN MAMM (CAD)W/REILLY BILAT IMPRESSION: Stable bilateral screening mammogram. Yearly follow-up mammogram recommended. (A) ASSESSMENT CATEGORY: BIRADS Category 2: Benign. A letter regarding these results will be sent to the patient by the facility within 30 days. Approximately 10% of breast cancers are not detected by mammography. A normal mammogram should not delay biopsy of a clinically suspicious abnormality. [id number] Electronically Signed: Kedar Hernandez MD at 12:48 EST ,
== END | disposition home or self-care (01) ==
LOC: OPBI 11:52
PROVIDERS: PCP Family Medicine; Visit Provider Nurse Practitioner Women's Health
DX: Z12.31 Encounter for screening mammogram for malignant neoplasm of breast (principal)
CPT/HCPCS: 77063; 77067

== ENCOUNTER → 2022-04-14 | Outpatient (CLI) | payer OTHER, SELFPAY ==
[2022-04-14 11:55] LABS: Iron 105 ug/dL (50-170)
== END | disposition home or self-care (01) ==
LOC: LAB 08:13
PROVIDERS: PCP Family Medicine; Visit Provider Family Medicine
DX: D64.9 Anemia, unspecified (principal)
CPT/HCPCS: 36415; 83540

== ENCOUNTER → 2022-04-19 | Outpatient (CLI) | payer OTHER, SELFPAY ==
--- NOTE | 2022-04-19 13:45 | MRI_ITS ---
EXAM: MR LEFT LOWER EXTREMITY WITHOUT INTRAVENOUS CONTRAST, FOOT CLINICAL INDICATION: LEFT toe pain TECHNIQUE: Multiplanar and multisequence MR images of the left foot without intravenous contrast. This report was created using Face to [employer] report generation technology. COMPARISON: None. FINDINGS: LIGAMENTS: MEDIAL COLLATERAL: Unremarkable. Intact. LATERAL COLLATERAL: Unremarkable. Intact. LISFRANC: Unremarkable. Intact. TENDONS: FLEXOR: Unremarkable. Intact. EXTENSOR: Unremarkable. Intact. PERONEAL: Unremarkable. Intact. TIBIALIS ANTERIOR: Unremarkable. Intact. TIBIALIS POSTERIOR: Unremarkable. Intact. MUSCLES: Muscles are normal. FLUID: Unremarkable. No joint effusion. PLANTAR FASCIA: Unremarkable. Intact. BONES/JOINTS: Mild to moderate degenerative changes of the first metatarsophalangeal with no hallux valgus deformity. Normal forefoot alignment. No fracture. No joint effusion. No concerning bone marrow signal alterations. OTHER SOFT TISSUES: Unremarkable. No soft tissue masses or fluid collections. OTHER FINDINGS: Neurovascular structures are unremarkable. MRI/Lower Ext/No Jt/w/o IMPRESSION: Mild to moderate degenerative changes of the first metatarsophalangeal joint without hallux valgus deformity. No other significant internal derangement. Electronically Signed: Nigel Ku MD at 2:16 EST ,
== END | disposition home or self-care (01) ==
LOC: MRI 13:12
PROVIDERS: PCP Family Medicine; Referring Provider Podiatrist; Visit Provider Podiatrist
DX: M77.9 Enthesopathy, unspecified (principal)
CPT/HCPCS: 73718

== ENCOUNTER → 2022-04-26 | Outpatient (CLI) | payer OTHER, SELFPAY ==
[2022-04-26 12:39] LABS: Ferritin 19 ng/mL (8-252)
== END | disposition home or self-care (01) ==
LOC: LAB 10:54
PROVIDERS: PCP Family Medicine; Visit Provider Family Medicine
DX: D64.9 Anemia, unspecified (principal)
CPT/HCPCS: 36415; 82728

== ENCOUNTER → 2022-06-08 | Outpatient (CLI) | payer OTHER, SELFPAY ==
--- NOTE | 2022-06-08 10:33 | RAD_ITS ---
EXAM: XR LUMBOSACRAL SPINE, 4 OR 5 VIEWS CLINICAL INDICATION: Right low back pain TECHNIQUE: Frontal, lateral and bilateral oblique views of the lumbar spine. This report was created using [employer] report generation technology. COMPARISON: 05/26/2016 FINDINGS: VERTEBRAE: Unremarkable. Preserved vertebral body height. No fracture. No spondylolisthesis. Preservation of the normal lumbar lordosis. No significant facet arthropathy. DISC SPACES: There is disc space narrowing at L4-5. GASTROINTESTINAL TRACT: Unremarkable as visualized. Included bowel gas pattern is non-obstructive. RAD/L/S Spine Min 4 Views IMPRESSION: Mild degenerative changes with disc space narrowing at L4-5. This has progressed from the reference exam. There are no acute osseous abnormalities. Electronically Signed: Marcos Richardson MD at 0:03 EDT ,
== END | disposition home or self-care (01) ==
LOC: RAD 10:34
PROVIDERS: PCP Family Medicine; Referring Provider Chiropractor; Visit Provider Chiropractor
DX: M99.03 Segmental and somatic dysfunction of lumbar region (principal)
CPT/HCPCS: 72110

== ENCOUNTER 2022-06-27 15:30 | Outpatient (RCR) | payer OTHER, SELFPAY ==
--- NOTE | 2022-06-21 08:35 | HP.PTEVAL_ITS ---
Patient's Visit Information PRISCILA YAP is a 47 year old F referred to Physical Therapy by Dr. Mando Niño MD with a diagnosis of Lumbago with sciatica L4 on R. Date of Evaluation: 06/21/22 Physical Therapist: SALBADOR Mccoy - Visit Plan Frequency: 2-3x /Week Duration: 6 Weeks Plan: 2-3x/ week for 6 weeks for decrease in inflammation, centralization of back sx (no direction of preference yet), nerve root stretching, R LE strengthening, core stability, postural exercises with HEP - Subjective She has back pain that started May 19. It just started to hurt. She had nerve pain and could not stretch. She tried Prednizone and it worked. Chiro made it worse. She was in [place] for a confrence last week and got another round of steroids, muscle relaxor. She has leg pain all the way down to her R ankle. She also has spasms in her back and into her butt cheek and pain down the R leg. No N&T. Achy feeling in leg and back. She is not sleeping well because of butt and leg pain. She can only sit or stand for a short period of time. She is ok if just walking around. She just can not stand still. She reports that she thinks that she has weakness in her R foot and she is tripping on it. X-ray and showed nothing other than some narrowing. Stairs: been avoiding them because it hurts and the more stairs she did the more spasms she would have. - Pain Back pain Pain Intensity (Out of 10): 2 R leg pain Pain Intensity (Out of 10): 1 Comment: achy - Objective Gait: walks with decrease stance time on the R side. Pt struggles with toe raises on the R (not full ROM), able to heel raise but might be weaker on the R. SLUMP Test: + on the R and negative on the L. SLR: + on the R for pain down the whole R leg and negative on the L. LE MMT: R hip flex 10.7 and L hip flex 9.8. R knee ext 23.2 and L 23.6. R knee flex 14.3 and L 13.2. R DF 16.2 and L 22.9. Patellar DTR's: R 1+/3 and L 2+/3. Trunk AROM: flex 50%, Ext 10%, SB R 75 and L 50, Rot to the R 75 and Rot L 50 (with increase pain). Repeated R Piriformis flossing in supine with R leg crossed over the L X 2 min.... pain at first but did loosen up. Prone lying X pain in R buttock that did not change. Prone lying with 2 pillows under abdomin... pain all the way down the ankle... pain did not let up so we decided to do E-stim in supine with hooklying position with ice X 15 - Balance/Special Test Scores Oswestry Low Back Score: 22 - Goals Goal 1:: I HEP Goal Time Frame: 4-6 Weeks Goal 2:: Centralization of LE symptoms Goal Time Frame: 4-6 Weeks Goal 3:: Be able to complete work duties with less than 2/10 back/buttock pain Goal Time Frame: 4-6 Weeks Goal 4:: Abolish SLUMP testing pain Goal Time Frame: 4-6 Weeks Goal 5:: Increase R LE strength (at time of the eval: LE MMT: R hip flex 10.7 and L hip flex 9.8. R knee ext 23.2 and L 23.6. R knee flex 14.3 and L 13.2. R DF 16.2 and L 22.9) Goal Time Frame: 4-6 Weeks - Rehabilitation Potential Rehabilitation Potential: Good - Anticipated Interventions Patient/Client Instruction: Educate patient on: Condition, Plan of Care For the Purpose of:: To decrease pain, To decrease swelling/inflammation, To increase ROM, To improve nutrient delivery to tissue, To increase oxygenation perfusion, To improve muscle performance and motor function, To improve ability to perform ADL's, To increase tolerance to activity/condition/position, To improve performance and independence with ADL's, To decrease level of supervision to perform tasks, To improve ability of physical actions for home/community/work/leisure, To improve gait and locomotor functions, To improve health of tissue, To decrease soft tissue restriction, To increase flexibil ity/ROM Therapeutic Exercise to Include: Strength training, Endurance training, Body mechanics, Postural training, Flexibilty training, Gait and locomotor training, Neuromotor development, In an aquatic setting, Passive ROM, Active ROM, Dynamic Lumbar Stabilization, Rolanda Exercises, Scapular Strength/Stabilization For the Purpose of:: To decrease pain, To increase ROM, To improve nutrient delivery to tissue, To increase oxygenation perfusion, To improve muscle performance and motor function, To improve ability to perform ADL's, To increase tolerance to activity/condition/position, To improve performance and independence with ADL's, To decrease level of supervision to perform tasks, To improve ability of physical actions for home/community/work/leisure, To improve gait and locomotor functions, To improve health of tissue, To decrease soft tissue restriction, To increase flexibility/ROM, To improve endurance, To improve balance Functional Training to Include: Gait training For the Purpose of:: To improve gait and locomotor functions Manual Therapy Techniques to Include: Mobilization, Passive ROM, Soft tissue mobilization For the Purpose of:: To decrease pain, To decrease swelling/inflammation, To increase ROM, To improve nutrient delivery to tissue, To improve muscle performance and motor function, To improve ability to perform ADL's IF ES: Yes Cryotherapy (ice pack, ice massage): Yes Thermo therapy (hot pack): Yes Ultrasound (thermal/non thermal): Yes For the Purpose of:: To decrease pain, To decrease swelling/inflammation, To increase ROM, To improve nutrient delivery to tissue Thank you for the opportunity to evaluate your patient. For Medicare and Medicare HMO plans, please review the plan of care and approve it. It will need to be FAXED BACK to us at [phone] for Medicare purposes. For Medicare only, by signing this I certify the plan of care. Please let me know if there are questions or concerns regarding this plan of care. Physician Signature: Date:
--- NOTE | 2022-08-10 16:28 | HP.PT.NRP ---
Patient Information Patient Information: PRISCILA YAP was seen in my office for initial evaluation on 06/21/22. The following Plan of Care was established for this patient: POC Established Initial Frequency: 2-3x /Week Initial Duration: 6 Weeks Anticipated Interventions Patient/Client Instruction: Educate patient on: Condition and Plan of Care For the Purpose of:: To decrease pain, To decrease swelling/inflammation, To increase ROM, To improve nutrient delivery to tissue, To increase oxygenation perfusion, To improve muscle performance and motor function, To improve ability to perform ADL's, To increase tolerance to activity/condition/position, To improve performance and independence with ADL's, To decrease level of supervision to perform tasks, To improve ability of physical actions for home/community/work/leisure, To improve gait and locomotor functions, To improve health of tissue, To decrease soft tissue restriction and To increase flexibility/ROM Therapeutic Exercise to Include: Strength training, Endurance training, Body mechanics, Postural training, Flexibilty training, Gait and locomotor training, Neuromotor development, In an aquatic setting, Passive ROM, Active ROM, Dynamic Lumbar Stabilization, Rolanda Exercises and Scapular Strength/Stabilization For the Purpose of:: To decrease pain, To increase ROM, To improve nutrient delivery to tissue, To increase oxygenation perfusion, To improve muscle performance and motor function, To improve ability to perform ADL's, To increase tolerance to activity/condition/position, To improve performance and independence with ADL's, To decrease level of supervision to perform tasks, To improve ability of physical actions for home/community/work/leisure, To improve gait and locomotor functions, To improve health of tissue, To decrease soft tissue restriction, To increase flexibility/ROM, To improve endurance and To improve balance Functional Training to Include: Gait training For the Purpose of:: To improve gait and locomotor functions Manual Therapy Techniques to Include: Mobilization, Passive ROM and Soft tissue mobilization For the Purpose of:: To decrease pain, To decrease swelling/inflammation, To increase ROM, To improve nutrient delivery to tissue, To improve muscle performance and motor function and To improve ability to perform ADL's IF ES: Yes Cryotherapy (ice pack, ice massage): Yes Thermo therapy (hot pack): Yes Ultrasound (thermal/non thermal): Yes For the Purpose of:: To decrease pain, To decrease swelling/inflammation, To increase ROM and To improve nutrient delivery to tissue Last Seen Last Seen: This patient was last seen in our office 06/27/22. Pertinent comments regarding their Physical therapy will appear below: ISABELLA PT. Pt having an MRI At this point I will be discontinuing this patient from physical therapy. I would be happy to see this patient again in the future if found appropriate by the physician. Thank you! Sonya Ruiz, SALBADOR Balance/Gait/Functional tests Balance/Special Test Scores Oswestry Low Back Score: 22
== END 2022-06-27 19:00 | disposition home or self-care (01) ==
LOC: PT 15:30
PROVIDERS: PCP Family Medicine; Referring Provider Family Medicine; Visit Provider Family Medicine
DX: M54.41 Lumbago with sciatica, right side (principal)
CPT/HCPCS: 97014; 97110; 97161; G0283

== ENCOUNTER → 2022-07-16 | Outpatient (CLI) | payer OTHER, SELFPAY ==
--- NOTE | 2022-07-16 07:29 | MRI_ITS ---
INDICATION: LUMBAGO W/ SCIATICA- RIGHT SIDE EXAMINATION: MRI - MR Spine Lumbar W/O Contrast TECHNIQUE: Multiplanar and multisequence MR images of the lumbar spine. IV Contrast Dosage and Agent: None. COMPARISON: CR May 26, 2016. FINDINGS: VERTEBRAE: Vertebral body heights are preserved. Normal vertebral bodies and posterior elements. VERTEBRAL ALIGNMENT: No spondylolisthesis. There is preservation of the normal lumbar lordosis. CORD: Normal position and signal intensity of the conus medullaris. L1/L2: Mild disc desiccation. L2/L3: Mild disc desiccation. L3/L4: Mild disc desiccation. L4/L5: Moderate disc desiccation. Moderate loss of disc space height stable. Moderate central vascular paracentral disc herniation, mild bilateral facet arthropathy and ligamentous hypertrophy, moderate central stenosis with it demonstrates thecal sac 0.64 cm, moderately severe bilateral neural foraminal encroachment L5/S1: Mild disc desiccation, mild loss of disc space height which is stable, mild disc bulging, mild bilateral facet arthropathy, mild central stenosis, mild bilateral neural foraminal encroachment. SOFT TISSUES: Unremarkable. MRI/Spine Lumbar (Routine) IMPRESSION: Moderate central vascular paracentral disc herniation L4-5. Mild disc bulging L5-S1. Multilevel degenerative disc disease, central stenosis, facet arthropathy and neural foraminal encroachment as above. Electronically Signed: Michael Everett MD, COLE at 10:48 EDT ,
== END | disposition home or self-care (01) ==
LOC: MRI 07:27
PROVIDERS: PCP Family Medicine; Referring Provider Family Medicine; Visit Provider Family Medicine
DX: M54.40 Lumbago with sciatica, unspecified side (principal)
CPT/HCPCS: 72148

== ENCOUNTER 2022-08-29 12:19 | Day surgery (SDC) | payer OTHER, SELFPAY ==
[2022-08-29] VITALS (8 sets, daily range): BP systolic 85–103; BP diastolic 52–71; PULSE 58–65; RESP 16–18; TEMP 36.1–36.7; O2SAT 96–100; BMI 33.5
[2022-08-29] MEDS: Lactated Ringers 1,000 ML 15 ML IV (13:02)
--- NOTE | 2022-08-29 13:10 | RAD_ITS ---
PROCEDURE: CAUDAL EPIDURAL STEROID INJECTION DATE OF EXAMINATION: August 29, 2022 INDICATION: Female, 47 years old. Right-sided sciatica. FLUOROSCOPY TIME (if supplied): 10 seconds. 2 images are submitted RAD/Fluor Guidance for Spine Inj IMPRESSION: Two intraoperative lateral views of the sacrum show an injection needle tip overlying the sacrococcygeal juncture. Electronically Signed: Juan Birch MD at 17:04 EDT Reading Location ID and State: [id number] / Unknown , Service support ,
[2022-08-29] MEDS: 0.9% Normal Saline (Pres. free 10 ML Vial (13:24)
[2022-08-29] MEDS: MethylPREDNISolone Acetate 80 MG/ML Vial (13:40)
[2022-08-29] MEDS: Lidocaine 1% (5 ml sdv) 5 ML Vial (13:40)
--- NOTE | 2022-08-29 13:43 | OP.PCM_ITS ---
Report of Operation Date of Procedure: 08/29/22 Pre-Operative Diagnosis: Lumbosacral radiculopathy, lumbosacral degenerative di sc disease, lumbosacral spinal stenosis Post-Operative Diagnosis: Lumbosacral radiculopathy, lumbosacral degenerative disc disease, lumbosacral spinal stenosis Surgery/Procedure Performed:: Diagnostic/therapeutic caudal epidural steroid injection under fluoroscopic guidance Type of Anesthesia: MAC Estimated Blood Loss (mL): Minimal Description of Procedure: DESCRIPTION OF PROCEDURE: History and physical of today was reviewed. Risks and benefits of the procedure were explained. The patient understood and agreed to proceed. Informed consent was obtained. IV inserted per routine protocol. The patient was taken to the operating room and placed in the prone position with a pillow positioned underneath the abdomen. The lower back and tailbone area was prepped and draped in a sterile fashion using iodine x3. Under fluoroscopy guidance on a lateral view, the caudal space was identified. The skin and subcutaneous tissue was anesthetized with approximately 3 mL of 1% lidocaine using a 25-gauge regular needle. Under direct visualization with fluoroscopy, using a 22-gauge 3-1/2-inch spinal needle, the needle was advanced via the skin through the sacral hiatus. The tip of the needle was passed through the sacrococcygeal ligament and advanced to approximately S4 area. After negative aspiration of blood or CSF, a total of 3 mL of contrast was injected to confirm correct placement of the needle as well as cephalad spread. The spread was followed to approximately L5 area. After confirmation on AP as well as lateral view and repeated negative aspiration, a total of 15 mL of preservative-free 0.125% Marcaine with 80 mg of Depo-Medrol was injected easily. The needle was then removed intact. The patient experienced no sign or symptoms of intrathecal or intravascular injection. The patient experienced no paresthesia. The procedure was completed without any apparent difficulty or any complications. The patient appeared to tolerate it well. ASSESSMENT AND PLAN: This is a 47-year-old female with lumbosacral radiculopathy, lumbosacral degenerative disc disease, lumbosacral spinal stenosis status post diagnostic/therapeutic caudal epidural steroid injection, patient will continue her current medications, patient will follow up in approximately 2 weeks for reevaluation. Complications None
== END 2022-08-29 14:39 | disposition home or self-care (01) ==
LOC: SDC 12:19 → AC 12:21
PROVIDERS: PCP Family Medicine; Referring Provider Anesthesiology Pain Medicine; Visit Provider Anesthesiology Pain Medicine
PROC: 3E0S3BZ Introduction of Anesthetic Agent into Epidural Space, Percutaneous Approach (ICD-10-PCS; CPT 62282; principal; 2022-08-29 14:05)
DX: M48.07 Spinal stenosis, lumbosacral region (principal); M46.96 Unspecified inflammatory spondylopathy, lumbar region; M51.17 Intervertebral disc disorders with radiculopathy, lumbosacral region; I10 Essential (primary) hypertension; E03.9 Hypothyroidism, unspecified; Z87.442 Personal history of urinary calculi; M48.061 Spinal stenosis, lumbar region without neurogenic claudication; M51.37 Other intervertebral disc degeneration, lumbosacral region; Z79.899 Other long term (current) drug therapy
CPT/HCPCS: 62323; 64483; 77003; J7120; J3490

== ENCOUNTER → 2022-09-23 | Outpatient (CLI) | payer OTHER, SELFPAY | END | disposition home or self-care (01) | LOC: SL 19:56 | PROVIDERS: PCP Family Medicine; Referring Provider Family Medicine; Visit Provider Family Medicine | DX: G47.8 Other sleep disorders (principal) | CPT/HCPCS: 95810 ==

== ENCOUNTER → 2022-10-18 | Outpatient (CLI) | payer OTHER, SELFPAY | END | disposition home or self-care (01) | LOC: SL 10:38 | PROVIDERS: PCP Family Medicine; Visit Provider Nurse Practitioner Acute Care | DX: G47.33 Obstructive sleep apnea (adult) (pediatric) (principal) ==

== ENCOUNTER → 2022-11-23 | Outpatient (CLI) | payer OTHER, SELFPAY ==
[2022-11-23 06:46] LABS: Bacteria 0 SEEN /hpf (None Seen); Mucous, Urine 0 SEEN /hpf (<or=2+); Squamous Epithelial Cells - UA 0 SEEN /hpf (5-10)
[2022-11-23 07:25] LABS: Color, Urine Yellow (Yellow); Glucose, Dipstick Normal (Normal); Ketone-Dipstick Negative (Negative); Leukocyte Esterase-Dipstick 25 /ul (Negative); Nitrite-Dipstick Negative (Negative); Occult Blood-Urine 50 /ul (Negative); Protein-Dipstick 15 mg/dl (Negative); Urine Bilirubin Dipstick Negative (Negative); Urine Clarity Sl. Cloudy (Clear); Urine Urobilinogen Normal (Normal)
[2022-11-23 07:50] LABS: Red Blood Cells-Urine 0-5 SEEN /hpf (0-5); White Blood Cells 0-5 SEEN /hpf (0-5)
== END | disposition home or self-care (01) ==
PROVIDERS: PCP Family Medicine; Referring Provider Family Medicine; Visit Provider Family Medicine
DX: R39.15 Urgency of urination (principal)
CPT/HCPCS: 81001; 87086; 87088

== ENCOUNTER 2022-12-19 07:33 | Day surgery (SDC) | payer OTHER, SELFPAY ==
[2022-12-19] VITALS (7 sets, daily range): BP systolic 87–110; BP diastolic 52–65; PULSE 64–76; RESP 16–18; TEMP 36.6–37.4; O2SAT 95–99; BMI 34.4
[2022-12-19] MEDS: Lactated Ringers 1,000 ML 15 ML IV (07:55)
--- NOTE | 2022-12-19 08:35 | RAD_ITS ---
PROCEDURE: Caudal epidural steroid injection. DATE OF EXAMINATION: December 19, 2022. INDICATION: Female, 47 years old. Chronic low back pain. FLUOROSCOPY TIME (if supplied): (3 seconds) minutes/seconds. 2.81 mGy. 2 images were obtained. RAD/Fluor Guidance for Spine Inj IMPRESSION: Intraoperative imaging provided for caudal epidural steroid injection. Electronically Signed: Kedar Hernandez MD at 9:56 EST ,
[2022-12-19] MEDS: MethylPREDNISolone Acetate 80 MG/ML Vial (08:40)
[2022-12-19] MEDS: 0.9% Normal Saline (Pres. free 10 ML Vial (08:40)
[2022-12-19] MEDS: Lidocaine 1% (5 ml sdv) 5 ML Vial (08:41)
--- NOTE | 2022-12-19 09:01 | OP.PCM_ITS ---
Report of Operation Date of Procedure: 12/19/22 Pre-Operative Diagnosis: Lumbosacral radiculopathy, lumbosacral degenerative di sc disease, lumbosacral spinal stenosis Post-Operative Diagnosis: Lumbosacral radiculopathy, lumbosacral degenerative disc disease, lumbosacral spinal stenosis Surgery/Procedure Performed:: Diagnostic/therapeutic caudal epidural steroid injection under fluoroscopic guidance Type of Anesthesia: MAC Estimated Blood Loss (mL): Minimal Description of Procedure: DESCRIPTION OF PROCEDURE: History and physical of today was reviewed. Risks and benefits of the procedure were explained. The patient understood and agreed to proceed. Informed consent was obtained. IV inserted per routine protocol. The patient was taken to the operating room and placed in the prone position with a pillow positioned underneath the abdomen. The lower back and tailbone area was prepped and draped in a sterile fashion using iodine x3. Under fluoroscopy guidance on a lateral view, the caudal space was identified. The skin and subcutaneous tissue was anesthetized with approximately 3 mL of 1% lidocaine using a 25-gauge regular needle. Under direct visualization with fluoroscopy, using a 22-gauge 3-1/2-inch spinal needle, the needle was advanced via the skin through the sacral hiatus. The tip of the needle was passed through the sacrococcygeal ligament and advanced to approximately S4 area. After negative aspiration of blood or CSF, a total of 3 mL of contrast was injected to confirm correct placement of the needle as well as cephalad spread. The spread was followed to approximately L5 area. After confirmation on AP as well as lateral view and repeated negative aspiration, a total of 15 mL of preservative-free 0.125% Marcaine with 80 mg of Depo-Medrol was injected easily. The needle was then removed intact. The patient experienced no sign or symptoms of intrathecal or intravascular injection. The patient experienced no paresthesia. The procedure was completed without any apparent difficulty or any complications. The patient appeared to tolerate it well. ASSESSMENT AND PLAN: This is a 47-year-old female with lumbosacral radiculopathy, lumbosacral degenerative disc disease, lumbosacral spinal stenosis status post diagnostic/therapeutic caudal epidural steroid injection, patient will continue her current medications, patient will follow in approximately 2 weeks for reevaluation. Complications None
== END 2022-12-19 09:34 | disposition home or self-care (01) ==
LOC: SDC 07:33 → AC 07:34
PROVIDERS: PCP Family Medicine; Referring Provider Anesthesiology Pain Medicine; Visit Provider Anesthesiology Pain Medicine
PROC: 3E0S3BZ Introduction of Anesthetic Agent into Epidural Space, Percutaneous Approach (ICD-10-PCS; CPT 62282; principal; 2022-12-19 08:55)
DX: M48.07 Spinal stenosis, lumbosacral region (principal); M51.17 Intervertebral disc disorders with radiculopathy, lumbosacral region; I10 Essential (primary) hypertension
CPT/HCPCS: 62323; 64483; 77003; J7120; J3490

== ENCOUNTER 2023-01-30 08:38 | Day surgery (SDC) | payer OTHER, SELFPAY ==
[2023-01-30] VITALS (7 sets, daily range): BP systolic 83–105; BP diastolic 48–62; PULSE 61–70; RESP 16; TEMP 35.8–36.7; O2SAT 97–99; BMI 34.4
--- NOTE | 2023-01-30 08:50 | RAD_ITS ---
PROCEDURE: Bilateral lumbar nerve block. DATE OF EXAMINATION: January 30, 2023. INDICATION: Female, 47 years old. Chronic low back pain. FLUOROSCOPY TIME (if supplied): (13.9 seconds) minutes/seconds. 8.05 mgy. 2 fluoroscopic images were obtained. RAD/Lumbar Spine 2 or 3 Views IMPRESSION: Intraoperative imaging provided for bilateral L4 S1 lumbar nerve block. Electronically Signed: Kedar Hernandez MD at 11:21 EST ,
[2023-01-30] MEDS: Lactated Ringers 1,000 ML 15 ML IV (09:02)
[2023-01-30] MEDS: Lidocaine 1% (5 ml sdv) 5 ML Vial (09:52)
[2023-01-30] MEDS: MethylPREDNISolone Acetate 80 MG/ML Vial (09:52)
--- NOTE | 2023-01-30 10:01 | PCM.OPRPT ---
Report of Operation Date of Procedure: 01/30/23 Description of Surgical Findings:: PREOPERATIVE DIAGNOSES: 1. Lumbosacral radiculopathy. 2. Lumbosacral degenerative disk disease. 3. Lumbosacral spinal stenosis. POSTOPERATIVE DIAGNOSES: 1. Lumbosacral radiculopathy. 2. Lumbosacral degenerative disk disease. 3. Lumbosacral spinal stenosis. PROCEDURE PERFORMED: Right sided lumbar transforaminal epidural steroid injection, L4-5 and L5-S1. ANESTHESIA: MAC. BLOOD LOSS: Minimal. COMPLICATIONS: None. DESCRIPTION OF PROCEDURE: History and physical of today was reviewed. Risks and benefits of the procedure were explained. The patient understood and agreed to proceed. Informed consent was obtained. IV inserted per routine protocol. The patient was taken to the operating room and placed in the prone position with a pillow positioned underneath the abdomen. The right side of the lower back was prepped and draped in a sterile fashion using iodine x3. Under fluoroscopy guidance on oblique view, the L4 through S1 vertebral bodies were visualized. The skin and subcutaneous tissue was anesthetized with approximately 5 mL of 1% lidocaine using a 25-gauge regular needle. Under direct visualization with fluoroscopy at approximately 35-degree angle, starting on the right L4, ending on the right L5, using a 22-gauge 5-inch spinal needle, the needle was advanced via the skin. The tip of the needle was maneuvered and directed towards the inferior and medial gutter of the transverse process at the superiormost aspect of the neural foramen. Once the tip of the needle was at the vicinity of the foramen, after negative aspiration for blood or CSF, a total of 1 mL of contrast was injected in divided doses between both levels to confirm correct placement of the needle as well as medial spread. The confirmation was obtained on AP as well as lateral view. After repeated negative aspiration and confirmation on AP as well as lateral view, a total of 6 mL of preservative-free 0.25% Marcaine with 80 mg of Depo-Medrol was injected in divided doses between both levels. The needles were then removed intact. The patient experienced no sign or symptoms of intrathecal or intravascular injection. The patient experienced no paresthesia. The procedure was completed without any apparent difficulty or any complications. The patient appeared to tolerate it well. ASSESSMENT AND PLAN: This is a 47-year-old female with lumbosacral radiculopathy, lumbosacral degenerative disk disease, and lumbosacral spinal stenosis, status post right-sided lumbar transforaminal epidural steroid injection at L4-5 and L5-S1. The patient will continue her current medications. The patient will follow up in approximately 2 weeks for reevaluation.
== END 2023-01-30 11:08 | disposition home or self-care (01) ==
LOC: SDC 08:38 → AC 08:39
PROVIDERS: PCP Family Medicine; Referring Provider Anesthesiology Pain Medicine; Visit Provider Anesthesiology Pain Medicine
PROC: 3E0S3BZ Introduction of Anesthetic Agent into Epidural Space, Percutaneous Approach (ICD-10-PCS; CPT 62322; principal; 2023-01-30 09:45)
DX: M51.17 Intervertebral disc disorders with radiculopathy, lumbosacral region (principal); M48.07 Spinal stenosis, lumbosacral region; G47.33 Obstructive sleep apnea (adult) (pediatric); M48.061 Spinal stenosis, lumbar region without neurogenic claudication; I10 Essential (primary) hypertension; E78.00 Pure hypercholesterolemia, unspecified; F32.A Depression, unspecified; E07.9 Disorder of thyroid, unspecified; Z79.899 Other long term (current) drug therapy
CPT/HCPCS: 64484; 01992; 64483; 72100; J7120

== ENCOUNTER → 2023-04-04 | Outpatient (CLI) | payer OTHER, SELFPAY ==
--- NOTE | 2023-04-04 07:58 | ECHOCS_ITS ---
Reason For Study: NONRHEUMATIC MVP Procedure This was a 2D Doppler, Color Flow transthoracic echocardiogram. Contrast injection was performed. Exam performed in department. Left Ventricle Normal LV size. Left ventricular systolic function is normal. The estimated ejection fraction is 68 %. Normal diastololic function. No regional wall motion abnormalities noted. Right Ventricle Normal RV size. Normal systolic function. Atria Normal left atrium. Normal right atrium. Mitral Valve Normal mitral valve. Tricuspid Valve Normal tricuspid valve. Aortic Valve Trisinus/trileaflet aortic valve. Pulmonic Valve Normal pulmonic valve. Great Vessels Normal aortic root. Pericardium/Pleural No pericardial effusion. Medication 22 gauge I.V. with prn adaptor inserted into right arm. Diluted definity 2.0ml given slow IV push to enhance endocardial definition. MMode/2D Measurements & Calculations LVIDd: 5.4 cm IVSd: 0.65 cm Ao root diam: 2.9 cm LVIDs: 3.6 cm LVPWd: 0.92 cm RVDd: 3.1 cm FS: 34.0 % LAV(MOD-bp): 39.8 ml LVAd ap4: 32.2 cm2 LVAd ap2: 27.9 cm2 LAV(MOD-bp) Indexed: 22.6 ml/m2 LVLd ap4: 8.8 cm LVLd ap2: 8.5 cm LAV(MOD-sp2): 37.6 ml EDV(MOD-sp4): 100.0 ml EDV(MOD-sp2): 76.3 ml LAV(MOD-sp4): 39.4 ml EDV(sp4-el): 99.5 ml EDV(sp2-el): 78.3 ml LVAs ap4: 15.5 cm2 LVAs ap2: 12.9 cm2 LVLs ap4: 6.6 cm LVLs ap2: 6.0 cm ESV(MOD-sp4): 31.2 ml ESV(MOD-sp2): 23.8 ml ESV(sp4-el): 31.0 ml ESV(sp2-el): 23.4 ml EF(MOD-sp4): 68.8 % EF(MOD-sp2): 68.8 % EF(sp4-el): 68.8 % SV(MOD-sp4): 68.8 ml SV(MOD-sp2): 52.5 ml SV(sp4-el): 68.5 ml LA A4 area: 15.8 cm2 LA dimension(2D): 3.8 cm RA A4 area: 12.2 cm2 TAPSE: 2.7 cm Time Measurements MV dec time: 0.22 sec Doppler Measurements & Calculations MV E max adelso: 116.7 cm/sec Lat Peak E' Adelso: 15.2 cm/sec Med Peak E' Adelso: 14.6 cm/sec MV A max adelso: 83.2 cm/sec E/E' lat: 7.7 E/E' med: 8.0 MV E/A: 1.4 MV V2 max: 120.9 cm/sec MV P1/2t max adelso: 121.3 cm/sec Ao V2 max: 146.5 cm/sec MV max P.8 mmHg MV P1/2t: 61.0 msec Ao max P.6 mmHg MV V2 mean: 64.2 cm/sec Ao V2 mean: 106.0 cm/sec MV mean P.9 mmHg MV dec slope: 582.2 cm/sec2 Ao mean P.1 mmHg MV V2 VTI: 34.9 cm MVA(P1/2t): 3.6 cm2 Ao V2 VTI: 33.5 cm AV (velocity ratio): 0.87 LV V1 max: 137.8 cm/sec PA V2 max: 123.8 cm/sec LV V1 max P.6 mmHg PA V2 mean: 88.3 cm/sec LV V1 mean P.2 mmHg LV V1 mean: 94.3 cm/sec LV V1 VTI: 29.2 cm ECHO/Echo Complete W/ Contrast Interpretation Summary Normal LV size. Left ventricular systolic function is normal. The estimated ejection fraction is 68 %. Structurally normal valves. Contrast injection was performed. Ordering Physician: oCnor Casillas Referring Physician: Yoandy Niño Performed By: Kimmie Benites, SUZIECS, RVT
--- OUTSIDE RECORDS SUMMARY | 2023-04-04 07:59 | XMS RPT_ITS | CCD ---
Author Name Unknown Address [address] [place] [address] Organization [facility] Care Team Providers Care Machine Featheredger And Reducer Name Role Phone Margo Christina LPN Unavailable Unavailab marian OSBORNE-CMichael Unavailable Unavailable Dossi DCHansa Unavailable Celia Bazzi LPN Unavailable Unavailable Dossi Hansa MASON Unavailable Celia Bazzi LPN Unavailable Unavailable Gerhard Horn (Historical) Primary Care Prov ider Unavailable Yoandy Niño Primary Care Provider Medications Completed/Discontinued Medications Medication Drug Class(es) Dates Sig (Normalized) Sig (Original) LINACLOTIDE (11 sources) Guanylate Cyclase-C Agonist Start: 05-26-2016 LINZESS 145 MCG CAPS 1 daily LINACLOTIDE [id number] Geraldine Rodriguez Problems Active Problems Problem Classification Problem Date Documented Da te Episodic/Chronic Disorders of lipid metabolism (11 sources) Hypercholesterolemi a; Translations: [Disorder of bile acid and cholesterol metabolism, unspecified] Onset: 05-26-2016 05-26-2016 Chronic Essential hypertension (11 sources) Hypertensive disorder; Translations: [Essential (primary) hypertension] Onset: 05-26-2016 05-26-2016 Chronic Menstrual disorders (1 source) Dysmenorrhea; Translations: [Dysmenorrhea] Onset: 07-30-2009 07-30-2009 Chronic Other female genital disorders (1 source) Dyspareunia; Translations: [Dyspareunia] Onset: 07-30-2009 07-30-2009 Chronic Other female genital disorders (1 source) Premenstrual tension syndrome; Translations: [Premenstrual tension syndromes] Onset: 12-06-2010 12-06-2010 Chronic Other gastrointestinal disorders (11 sources) Irritable bowel syndrome; Translations: [Irritable bowel syndrome without diarrhea] Onset: 05-26-2016 05-26-2016 Chronic Past or Other Problems Problem Classification Problem Date Documented Da te Episodic/Chronic Allergic reactions (6 sources) Contact dermatitis due to plants; Translations: [Unspecified contact dermatitis due to plants, except food] Onset: 07-27-2016 07-27-2016 Episodic Calculus of urinary tract (11 sources) Kidney stone; Translations: [Calculus of kidney] Onset: 05-26-2016 05-26-2016 Episodic Genitourinary symptoms and ill-defined conditions (4 sources) Increased frequency of urination; Translations: [Frequency of micturition] Onset: 08-18-2016 08-18-2016 Episodic Other bone disease and musculoskeletal deformities (20 sources) Segmental and somatic dysfunction; Translations: [Segmental and somatic dysfunction of thoracic region] Onset: 05-26-2016 05-26-2016 Episodic Spondylosis; intervertebral disc disorders; other back problems (11 sources) Lumbar radiculopathy; Translations: [Radiculopathy, lumbar region] Onset: 05-26-2016 05-26-2016 Episodic Thyroid disorders (11 sources) Disorder of thyroid gland; Translations: [Disorder of thyroid, unspecified] Onset: 05-26-2016 05-26-2016 Episodic Urinary tract infections (4 sources) Acute cystitis; Translations: [Acute cystitis without hematuria] Onset: 08-18-2016 08-18-2016 Episodic Results Test Name Value Interpretation Reference Range Facil ity Vital Signs Date Time Vital Sign Value Performing Clinician Facility 08-18-2016 07:54-0400 BMI (Body Mass Index) 23.04 kg/m2 Michael WILKESP-C [facility] Work Phone: 08-18-2016 07:54-0400 Body Temperature 98.8 [degF] Michael Lieberman [employer] [facility] Work Phone: 08-18-2016 07:54-0400 BP Diastolic 80 mm[Hg] Michael Lieberman [employer] Work Phone: 08-18-2016 07:54-0400 BP Systolic 120 mm[Hg] Michael Lieberman [employer] Work Phone: 08-18-2016 07:54-0400 Height 152.4 cm Michael Lieberman [employer] Work Phone: 08-18-2016 07:54-0400 Pulse (Heart Rate) 66 /min Michael Lieberman [employer] Work Phone: 08-18-2016 07:54-0400 Respiratory Rate 16 /min Michael Lieberman [employer] Work Phone: 08-18-2016 07:54-0400 Weight 53.52 kg Michael Lieberman [employer] [facility] Work Phone: 07-27-2016 06:32-0400 BMI (Body Mass Index) 22.85 kg/m2 Celia Bazzi [facility] Work Phone: 07-27-2016 06:32-0400 Body Temperature 99 [degF] Celiabj Bazzi [facility] Work Phone: 07-27-2016 06:32-0400 BP Diastolic 70 mm[Hg] Celia Bazzi [facility] Work Phone: 07-27-2016 06:32-0400 BP Systolic 94 mm[Hg] Celia Bazzi [facility] Work Phone: 07-27-2016 06:32-0400 Height 152.4 cm Celia Bazzi LPN [facility] Work Phone: 07-27-2016 06:32-0400 Pulse (Heart Rate) 75 /min Celiabj Bazzi [facility] Work Phone: 07-27-2016 06:32-0400 Pulse Oximetry 99 % Cleia Bazzi [facility] Work Phone: 07-27-2016 06:32-0400 Respiratory Rate 16 /min Celia Bazzi [facility] Work Phone: 07-27-2016 06:32-0400 Weight 53.07 kg Celia Bazzi LPN [facility] Work Phone: 05-26-2016 09:40-0400 BMI (Body Mass Index) 21.48 kg/m2 Hansa [facility] Work Phone: 05-26-2016 09:40-0400 BP Diastolic 56 mm[Hg] Hansa Dossi DC [facility] Work Phone: 05-26-2016 09:40-0400 BP Systolic 110 mm[Hg] Hansa Dossi DC [facility] Work Phone: 05-26-2016 09:40-0400 Height 152.4 cm Hansa Arnoldsi [facility] Work Phone: 05-26-2016 09:40-0400 Weight 49.9 kg Hansa Pagan [facility] Work Phone: Encounters Encounter Date Encounter Type Care Provider Facility Start: 08-09-1999 End: 08-09-1999 Patient encounter procedure Ángel Sloan Work Phone: [facility] Start: 08-09-1999 Results Only Ángel mendoza Work Phone: [facility] Procedures Date Procedure Procedure Detail Performing Clinician Start: 08-18-2016 End: 08-18-2016 *UA - Urinalysis w/o Micro Michael Lieberman [employer] Start: 08-18-2016 End: 08-18-2016 Urinalysis nonauto w/o scope Michale Lieberman [employer] Start: 07-19-2016 End: 07-19-2016 Chiropractic manipulation Hansa Caal Dossi DC Work Phone: Start: 07-19-2016 End: 07-19-2016 Electric stimulation therapy Hansa aCal Dossi DC Work Phone: Start: 07-19-2016 End: 07-19-2016 Mechanical traction therapy Hansa Caal Dossi DC Work Phone: Start: 06-15-2016 End: 06-15-2016 Chiropractic manipulation Hansa Caal Dossi DC Work Phone: Start: 06-15-2016 End: 06-15-2016 Electric stimulation therapy Hansa B Dossi DC Work Phone: Start: 06-15-2016 End: 06-15-2016 Mechanical traction therapy Hansa B Dossi DC Work Phone: Start: 06-08-2016 End: 06-09-2016 Chiropractic manipulation Hansa B Dossi DC Work Phone: Start: 06-08-2016 End: 06-09-2016 Electric stimulation therapy Hansa B Dossi DC Work Phone: Start: 06-08-2016 End: 06-09-2016 Mechanical traction therapy Hansa B Dossi DC Work Phone: Start: 06-01-2016 End: 06-01-2016 Chiropractic manipulation Hansa B Dossi DC Work Phone: Start: 06-01-2016 End: 06-01-2016 Electric stimulation therapy Hansa B Dossi DC Work Phone: Start: 06-01-2016 End: 06-01-2016 Mechanical traction therapy Hansa B Dossi DC Work Phone: Start: 05-30-2016 End: 05-30-2016 Chiropractic manipulation Hansa B Dossi DC Work Phone: Start: 05-30-2016 End: 05-30-2016 Electric stimulation therapy Hansa B Dossi DC Work Phone: Start: 05-30-2016 End: 05-30-2016 Mechanical traction therapy Hansa B Dossi DC Work Phone: Start: 05-26-2016 End: 05-26-2016 Chiropractic manipulation Hansa B Dossi DC Work Phone: Start: 05-26-2016 End: 05-26-2016 Electric stimulation therapy Hansa B Dossi DC Work Phone: Start: 05-26-2016 End: 05-26-2016 Mechanical traction therapy Hansa B Dossi DC Work Phone: Start: 05-26-2016 End: 05-26-2016 X-ray exam of lower spine Hansa B Latasha MASON Work Phone: Start: 08-09-1999 CONVERTED SURGICAL PATHOLOGY Ángel Sloan Work Phone: Plan of Treatment Date Care Activity Detail Author Start: 10-15-2019 Influenza vaccination INFLUENZA (#1) [facility] Start: 2019 DIABETES SCREEN DIABETES SCREEN [facility] Start: 2019 LIPID SCREEN LIPID SCREEN [facility] Start: 08-18-2016 End: 08-18-2016 Appointment Appointment [facility] Work Phone: Start: 08-18-2016 End: 08-18-2016 *UA - Urinalysis w/o Micro *UA - Urinalysis w/o Micro [facility] Work Phone: Start: 08-18-2016 End: 08-18-2016 Urine culture, bacteria *CUUR - Culture, Urine ([place] Count) [facility] Work Phone: Start: 07-27-2016 End: 07-27-2016 Appointment Appointment [facility] Work Phone: Start: 07-19-2016 End: 07-19-2016 Appointment Appointment [facility] Work Phone: Start: 06-15-2016 End: 06-15-2016 Appointment Appointment [facility] Work Phone: Start: 06-08-2016 End: 06-09-2016 Follow up Appt 2x/week Follow up Appt 2x/week [facility] Work Phone: Start: 06-01-2016 End: 06-01-2016 Follow up Appt 2x/week Follow up Appt 2x/week [facility] Work Phone: Start: 05-30-2016 End: 05-30-2016 Follow up Appt 2x/week Follow up Appt 2x/week [facility] Work Phone: Start: 05-26-2016 End: 05-26-2016 Follow up Appt 2x/week Follow up Appt 2x/week [facility] Work Phone: Start: 2014 Mammography MAMMOGRAM [facility] Start: 07-17-2013 HPV TESTING HPV TESTING [facility] Start: 07-17-2013 PAP TESTING PAP TESTING [facility] Start: 1993 Urine microalbumin profile DTAP,TDAP,TD (1 - Tdap) [facility] Start: 1992 HEPATITIS C SCREENING HEPATITIS C SCREENING [facility] Start: 1992 HIV SCREENING HIV SCREENING [facility] Social History Date Type Detail Facility Tobacco smoking status NHIS Unknown if ev er smoked [facility] Sex Assigned At Not on file [facility] Additional Source Comments Source Comments (unrecognize d section and content) In the event this informatio n is protected by the Federal Confidentiality of Alcohol and Drug Abuse Patient Records regulations: The Federal rules restrict any use of the information to criminally investigate or prosecute any alcohol or drug abuse patient.[facility] FOR RECORDS PERTAINING TO PATIENTS WHO ARE OR HAVE BEEN ENROLLED IN A CHEMICAL DEPENDENCY/SUBSTANCEABUSE PROGRAM, SOME INFORMATION MAY BE OMITTED. This clinical summary was aggregated from multiple sources. Caution should be exercised in using it in the provision of clinical care. This summary normalizes information from multiple sources, and as a consequence, information in this document may materially change the coding, format and clinical context of patient data. In addition, data may be omitted in some cases. CLINICAL DECISIONS SHOULD BE BASED ON THE PRIMARY CLINICAL RECORDS. [facility]. provides no warranty or guarantee of the accuracy or completeness of information in this document.
== END | disposition home or self-care (01) ==
PROVIDERS: PCP Family Medicine; Referring Provider Internal Medicine Cardiovascular Disease; Visit Provider Internal Medicine Cardiovascular Disease
DX: I34.1 Nonrheumatic mitral (valve) prolapse (principal)
CPT/HCPCS: 93306; Q9957; A4216; C8929

== ENCOUNTER → 2023-04-13 | Outpatient (CLI) | payer OTHER, SELFPAY ==
--- NOTE | 2023-04-13 11:52 | BI_ITS ---
MAMMOGRAPHY - BILATERAL SCREENING REASON FOR EXAM: Female, 48 years old. Routine annual screening examination. PERTINENT HISTORY: Non-contributory. TECHNIQUE: Digital bilateral breast reilly (3D mammographic acquisition) in the CC and MLO projections. 2-D mediolateral oblique (MLO) and craniocaudad (CC) views of both breasts were obtained. CAD: Full Field Digital Mammography with Computer Added Detection was performed. COMPARISON: Comparison is made with prior study dated April 05, 2022 and February 17, 2021. FINDINGS: Breast Composition: The breasts are heterogeneously dense, which may obscure small masses. There are no dominant masses or suspicious calcifications. No other significant abnormalities are identified. There has been no significant change since the prior study. BI/SCRN MAMM (CAD)W/REILLY BILAT IMPRESSION: Stable bilateral screening mammogram. Yearly follow-up mammogram recommended. (A) ASSESSMENT CATEGORY: BIRADS Category 1: Negative. A letter regarding these results will be sent to the patient by the facility within 30 days. Approximately 10% of breast cancers are not detected by mammography. A normal mammogram should not delay biopsy of a clinically suspicious abnormality. [id number] Electronically Signed: Kedar Hernandez MD at 12:27 EST ,
== END | disposition home or self-care (01) ==
LOC: OPBI 11:52
PROVIDERS: PCP Family Medicine; Referring Provider Nurse Practitioner Women's Health; Visit Provider Nurse Practitioner Women's Health
DX: Z12.31 Encounter for screening mammogram for malignant neoplasm of breast (principal)
CPT/HCPCS: 77063; 77067

== ENCOUNTER 2023-04-26 17:37 | Emergency (ER) | payer OTHER, SELFPAY ==
[2023-04-26 17:37] VITALS: BP 138/83; PULSE 76; RESP 14; TEMP 36.8; O2SAT 98; BMI 34.9
--- NOTE | 2023-04-26 18:42 | EDS_ITS ---
HPI History of Present Illness Chief Complaint: Laceration Narrative Narrative: 48-year-old female presents with laceration to her left thumb that she sustained prior to arrival when she was making dinner. She states she was cutting potatoes with a knife, and sustained a laceration to the medial aspect of her left thumb. It is flap-like in nature. She recently had back surgery and on her last visit to her primary care provider, she had her tetanus immunization updated. She is not on blood thinners. She is right-hand dominant. She presents because of the flap laceration to her left thumb. [facility] Medical History Alcohol use Cardiac murmur Cardiology follow-up encounter Depression Essential hypertension Heartburn History of echocardiogram History of pain when walking History of stress test HTN (hypertension) Hypothyroid IBS (irritable bowel syndrome) Leg cramps Migraine headache Non-smoker Nonrheumatic mitral (valve) prolapse Normal Holter exam Pure hypercholesterolemia Restless legs RUQ pain Shortness of breath on exertion Tachycardia Thyroid disease Wears contact lenses Home Medications linaclotide 145 mcg capsule 145 mcg PO DAILY 07/27/18 [History Last Taken Unknown] metoprolol succinate 25 mg tablet,extended release 24 hr 25 mg PO DAILY #90 tabs 07/13/21 [Rx Last Taken 01/30/23] levothyroxine 75 mcg tablet 75 mcg PO DAILY 10/15/21 [History Last Taken 08/29/22] citalopram 40 mg tablet 40 mg PO DAILY #90 tabs 03/28/22 [Rx Last Taken Unknown] lisinopril 10 mg-hydrochlorothiazide 12.5 mg tablet 1 tab PO DAILY #90 tabs 04/26/22 [Rx Last Taken 01/30/23] meloxicam 7.5 mg tablet 7.5 mg PO DAILY 08/25/22 [History Last Taken Unknown] atorvastatin 20 mg tablet 20 mg PO QHS #90 tabs 02/27/23 [Rx Last Taken Unknown] calcium lactate 100 mg calcium tablet 100 mg PO DAILY 03/21/23 [History Last Taken Unknown] cyanocobalamin (vitamin B-12) 1,000 mcg capsule 1,000 mcg PO DAILY 03/21/23 [History Last Taken Unknown] folic acid 1 mg tablet 1 mg PO DAILY 03/21/23 [History Last Taken Unknown] multivitamin 1 tab PO DAILY 03/21/23 [History Last Taken Unknown] gabapentin 300 mg capsule 300 mg PO BID pain 04/03/23 [History Last Taken Unknown] oxycodone 5 mg capsule 5 mg PO QHS 04/03/23 [History Last Taken Unknown] Allergy/AdvReac Type Severity Reaction Status Date / Time sertraline [From Zoloft] AdvReac Eye Verified 04/26/23 17:38 twitching Family History Mother Heart disease Hypertension CAD (coronary artery disease) Atrial fibrillation Grandfather Heart disease Brother Myocardial infarction Sister Skin cancer Other Sleep apnea Surgical History H/O lithotripsy (~1995) History of oral surgery History of tubal ligation (~2000) Hx of dilation and curettage Hx of tonsillectomy S/P lumbar microdiscectomy Social History adopted: No household members: family housing: house number of children: 1 current occupational status: employed 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 HEENT: No sore throat. No neck pain. No loss of vision. No rhinorrhea. Cardiovascular: No chest pain. No palpitations. No pedal edema. Respiratory: No cough, no shortness of breath. Abdominal: No abdominal pain. No nausea. No vomiting. Genitourinary: No dysuria. No hematuria. Musculoskeletal: No myalgias. No arthralgias. Neurologic: No headaches. No dizziness. No lightheadedness. Skin: No rash. No change in color. Positive laceration to left thumb/side of left thumb. Continued bleeding. Psychiatric: No depression. No anxiety. EXAM Physical Exam Narrative Exam Narrative: Afebrile. Vital signs noted. HEENT: Normocephalic. Atraumatic. PERRL, EOMI. Neck soft and supple. No point tenderness or step off. Cardiovascular: Regular rate and rhythm. No murmurs, rubs, or gallops appreciated. Respiratory: No tachypnea. Lungs clear to auscultation bilaterally. Gastrointestinal: Abdomen soft, nontender, with normoactive bowel sounds. No rebound or guarding. Neurological: Awake. Alert. Nonfocal, nonlateralizing. Skin: No rash. Normal color. No pallor. Musculoskeletal: No pedal edema. Full range of motion extremities. Inspection of the medial aspect of the left thumb shows a flap-like laceration that is less than 1 cm with small amount of bleeding around the edge. There is no nail involvement. No other bleeding diathesis. Const Vital Signs: 04/26/23 17:37 Temperature 98.3 F Temperature Source Temporal Pulse Rate 76 Respiratory Rate 14 Blood Pressure 138/83 H Blood Pressure Mean 101 Pulse Ox 98 Oxygen Delivery Method Room Air MDM MDM MDM Narrative Medical decision making narrative: Patient's tetanus immunization is up-to-date. Differential diagnosis is not applicable. I did discuss closure types with her, and given its flap-like nature and it being less than 1 cm, I do feel that trying to put 1 stitch in would be more traumatic and cause more bleeding. Her wound will be cleansed by the RN and Steri-Strip closure will be attempted with or without a pressure dressing. She was told the risk of infection and scarring and acknowledges an understanding. She is agreement that sutures are not necessarily amenable to this type of laceration as she had cut her finger previously and they could not stitch it closed correctly. Hence, I do not feel that this is amenable to suturing. Her wound was cleansed. Initial pressure dressing was applied by RN which did not stop the bleeding out of the corner of the flap like laceration. Gelfoam was applied along with pressure by the patient. Upon repeat examination at approximately 2000, it appears as if the bleeding has stopped. She was told not to disturb the Gelfoam for at least 48 hours then she can change the outer dressing. I feel she can be discharged to follow-up with her primary care provider for wound check in 2 days. Return instructions to the emergency department were reviewed. Disp osition is discharged home in stable condition. Differential Diagnosis Differential Diagnosis: Not applicable Discharge Plan Triage Chief Complaint: Laceration ED Provider: Carter Rodriguez Dx/Rx/DC Orders Clinical Impression: Laceration of thumb Instructions: ED Laceration, Hand: All Closures Prescriptions: No Action levothyroxine 75 mcg tablet 75 mcg PO DAILY oxycodone 5 mg capsule 5 mg PO QHS multivitamin Tablet 1 tab PO DAILY folic acid 1 mg tablet 1 mg PO DAILY calcium lactate 100 mg calcium tablet 100 mg PO DAILY cyanocobalamin (vitamin B-12) 1,000 mcg capsule 1,000 mcg PO DAILY linaclotide 145 mcg capsule 145 mcg PO DAILY meloxicam 7.5 mg tablet 7.5 mg PO DAILY gabapentin 300 mg capsule 300 mg PO BID metoprolol succinate 25 mg tablet extended release 24 hr 25 mg PO DAILY Qty: 90 3RF citalopram 40 mg tablet 40 mg PO DAILY Qty: 90 3RF lisinopril-hydrochlorothiazide 10-12.5 mg tablet 1 tab PO DAILY Qty: 90 3RF atorvastatin 20 mg tablet 20 mg PO QHS Qty: 90 3RF Primary Care Provider: Mando Niño Referrals: Mando Niño MD [Primary Care Provider] - 2 Days for wound check Activity Restrictions/Additional Instructions: Do not disturb the Gelfoam for at least 48 hours. You may change the dressing at that time. Return with increased bleeding, new or worsening symptoms. Disposition Disposition: Home, Self Care
[2023-04-26 20:08] VITALS: BP 138/83; PULSE 76; RESP 14; TEMP 36.8; O2SAT 98
== END 2023-04-26 20:08 | disposition home or self-care (01) ==
PROVIDERS: Emergency Provider Emergency Medicine; PCP Family Medicine; Visit Provider Emergency Medicine
DX: S61.012A Laceration without foreign body of left thumb without damage to nail, initial encounter (principal); W26.0XXA Contact with knife, initial encounter; Y93.G3 Activity, cooking and baking; I10 Essential (primary) hypertension; K58.9 Irritable bowel syndrome, unspecified; E03.9 Hypothyroidism, unspecified; Z79.899 Other long term (current) drug therapy; F32.A Depression, unspecified; Z98.51 Tubal ligation status
CPT/HCPCS: 99282

== ENCOUNTER 2023-05-19 07:00 | Outpatient (RCR) | payer OTHER, SELFPAY ==
--- NOTE | 2023-04-10 08:02 | HP.PTEVAL_ITS ---
Patient's Visit Information Visit Information Visit Information: PRISCILA YAP is a 48 year old F referred to Physical Therapy by DIANA GUZMAN with a diagnosis of Mar 15, 2023 Back Surgery. Date of Evaluation: 04/10/23 Physical Therapist: Jayla Cobb DPT Visit Plan Frequency: 2-3x /Week Duration: 4 Weeks Plan: Mar 15, 2023 R L4/L5 Uni Laminectomy R L4-L5 Microdiscectomy R L4-L5 Partial Facetectomy, Foraminotomy, and direct exiting and traversing nerve decompression and L4 and L5 Right Start with neutral spine- then progress gently as tolerated. Restrictions are limited bending and twisting. HEP Given IE: Hamstring stretch with neural flossing gentle, Figure 4 stretch, calf stretch, luz maria pose gentle Subjective Subjective: Patient reports spinal surgery Mar 15, [address] Nir Brito. Prior to surgery she had pain down her right buttock down to her right leg and 3 last toes were numb spasm in her right buttock- that was going on sine May 2022. 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 She does no lifting- 4 hours a day and then 6 hours and 6 hours. Currently she is on 4 hour days- she feels that its do able at this point. Job duties- sitting at a desk but she is able to get up and move around. S/S currently back tightness and right ankle pain. The pain comes and goes. Worst pain in last 48 hours is 5/10 Agg: activity Best: 0/10 Eases: laying down supine-with her right knee bent-ice. She does have pain medication-she takes Oxy at night and Meloxicam at Gabapentin all the time. Restrictions are limited bending and twisting. She is not using the back brace anymore. No more than #10. No N/T currently. No loss or change in bowel or bladder. Sleep: she can sleep with medication and is normally a back sleeper. She is pretty active and is frustrated she can't be more active. She likes to kayak and walking distances. She does not have a fitness regimen. PMHx: HTN, thyroid, IBS, high cholesterol Meds: Oxy, Meloxicam, Gabapentin, Metroprolol, Lysinporil, Atorvastatin, Lynsest, Syntroid. Objective Objective: Posture: forward head, rounded shoulders- guarded posture in both sitting and standing Gait: good raphael and LE movement- decreased arm swing and trunk rotation due to guarding SLS: weight shift but unsteadiness HR/TR: able but reports pain in right ankle with HR- tightness in calf Flex: HS: severe, Gastroc: severe, Soleus: severe, Piriformis: severe ROM: Lumbar: hands: to knees, Extn: neutral: SB: limited by 50% reports stiff, Rot: WFL, LE: WFL Strength: Core: fair minus, Hip: 4/5 throughout, Knee: 5/5, Ankle:5/5 Sensation: WNL to gross touch Reflex: WFL Observation: incision healing well no s/s of infection Special Test: Dural signs: right: positive left: negative Special Tests L/S Slump test left side: Negative L/S Slump test right side: Positive L/S Left Straight Leg Raise: Negative L/S Right Straight Leg Raise: Positive Balance/Special Test Scores Oswestry Low Back Score: 20 Goals Goal 1:: Patient will report participation in home exercise program activities a minimum of 5 days per week, as adjunct to skilled physical therapy intervention in preparation for independent home management upon discharge. Goal Time Frame: 4-6 Weeks Goal 2:: Patient will maintain proper posture t/o tx session to demo increased core s/s Goal Time Frame: 4-6 Weeks Goal 3:: Patient will report no radicular s.s Goal Time Frame: 4-6 Weeks Goal 4:: Patient will return to all normal ADL's without pain Goal Time Frame: 4-6 Weeks Goal 5:: Patient will report 80% improvement Goal Time Frame: 4-6 Weeks Rehabilitation Potential Physical Therapy Diagnosis: Patient presents with hypomobility- she has decreased pain free ROM, strength/stabilization in the LE and core, muscular endurance, proprioception and functional mobility. Rehabilitation Potential: Good Anticipated Interventions Patient/Client Instruction: Educate patient on: Benefits of Fitness Program Therapeutic Exercise to Include: Strength training, Endurance training, Balance training, Coordination, Agility training, Body mechanics, Postural training, Flexibilty training, Gait and locomotor training, Neuromotor development, Relaxation training, Passive ROM, Active ROM, Dynamic Lumbar Stabilization and Scapular Strength/Stabilization For the Purpose of:: To improve muscle performance and motor function TENS: Yes Cryotherapy (ice pack, ice massage): Yes Thermo therapy (hot pack): Yes Text: Thank you for the opportunity to evaluate your patient. For Medicare and Medicare HMO plans, please review the plan of care and approve it. It will need to be FAXED BACK to us at [phone] for Medicare purposes. For Medicare only, by signing this I certify the plan of care. Please let me know if there are questions or concerns regarding this plan of care. Physician Signature: Date:
--- NOTE | 2023-05-05 07:57 | HP.PTREVAL ---
Re-Evaluation Intro: DIANA GUZMAN, It has been my pleasure to treat PRISCIAL YAP over the last 11 visits for Mar 15, 2023 Back Surgery. Please see the progress note below for an update on the physical therapy plan of care! Subjective Subjective: I am doing alot better. Has some tihtness now and then but no real pain. Not many leg [id number] and no numbness or tingling. 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 Home activitiess are Ok, Avoided vaccuming but cleans house. Walking about a mile and wants to get up to 3. ROM exercises. Objective Objective/Function: Walking normal , steps reciprocal with no rail. AROM LB ext min limited, flexion mod llimited, SB min limited. Hesitant to bend forward. Same goals with POC extended two weeks. Plan Plan Plan: 2x/week for 2 weeks to get more aggressive with final strength program. Please do general strengths(squats, RDL, inchworms, heel raises, planks rows, side rows, pot stirs) and teach them for either HEP or gym program based on patients desire with pics/list in prep for d/c Balance/Gait/Functional tests Balance/Special Test Scores Oswestry Low Back Score: 6 Goals Goals Goal 1:: Patient will report participation in home exercise program activities a minimum of 5 days per week, as adjunct to skilled physical therapy intervention in preparation for independent home management upon discharge. Goal Time Frame: 4-6 Weeks Goal Progress: Progressing Goal 2:: Patient will maintain proper posture t/o tx session to demo increased core s/s Goal Time Frame: 4-6 Weeks Goal Progress: Goal Met Goal 3:: Patient will report no radicular s.s Goal Time Frame: 4-6 Weeks Goal Progress: Goal Met Goal 4:: Patient will return to all normal ADL's without pain Goal Time Frame: 4-6 Weeks Goal Progress: Progressing Goal 5:: Patient will report 80% improvement Goal Time Frame: 4-6 Weeks Goal Progress: 50% Anticipated Interventions Anticipated Interventions Patient/Client Instruction: Educate patient on: Benefits of Fitness Program Therapeutic Exercise to Include: Strength training, Endurance training, Balance training, Coordination, Agility training, Body mechanics, Postural training, Flexibilty training, Gait and locomotor training, Neuromotor development, Relaxation training, Passive ROM, Active ROM, Dynamic Lumbar Stabilization and Scapular Strength/Stabilization For the Purpose of:: To improve muscle performance and motor function TENS: Yes Cryotherapy (ice pack, ice massage): Yes Thermo therapy (hot pack): Yes Re-Evaluation Ending Re-evaluation ending: Please do not hesitate to contact me at [phone] by phone or if you have questions or concerns regarding this new plan of care! Sincerely, Miah Mai, DPT, OCS, CSCS
--- NOTE | 2023-05-19 07:42 | HP.PTDCSUM ---
Discharge Summary D/C summary: It has been my pleasure to treat PRISCILA YAP referred by DIANA GUZMAN, with the diagnosis of Mar 15, 2023 Back Surgery for a total of 15 visit(s). Discharge Date: 05/19/23 Please see the following information for a summary of their discharge status. Subjective Subjective: Patient denies any pain on arrival, states the pain in LB is gone. Was cleared by her Surgeon yesterday. Pain LBP: Pain Intensity (Out of 10): 0 R LE: Pain Intensity (Out of 10): 0 Overall Improvement % Improvement: 75 Objective Objective/Function: Focus on general strength for HEP. Patient was provided a print out of exercises completed in clinic today. Spent a little extra time working on tech with RDL's with better tech following education and practice. Goals Goal 1:: Patient will report participation in home exercise program activities a minimum of 5 days per week, as adjunct to skilled physical therapy intervention in preparation for independent home management upon discharge. Goal Progress: Progressing Goal 2:: Patient will maintain proper posture t/o tx session to demo increased core s/s Goal Progress: Goal Met Goal 3:: Patient will report no radicular s.s Goal Progress: Goal Met Goal 4:: Patient will return to all normal ADL's without pain Goal Progress: Progressing Goal 5:: Patient will report 80% improvement Goal Progress: 50% Plan Plan: 2x/week for 2 weeks to get more aggressive with final strength program. Please do general strengths(squats, RDL, inchworms, heel raises, planks rows, side rows, pot stirs) and teach them for either HEP or gym program based on patients desire with pics/list in prep for d/c D/C Information Discharge Comments: Pt to continue with HEP 3x/week and call if concerns or questions, no f/u with doctor unless problems. d/c sentence: If there are questions or concerns regarding this patient's physical therapy, please feel free to call me at [phone]. Thank you for the referral of this patient. Sincerely, Miah Mai, DPT, OCS, CSCS Balance/Gait/Functional tests Balance/Special Test Scores Oswestry Low Back Score: 6 Improvement % Improvement: 75
== END 2023-05-19 19:00 | disposition home or self-care (01) ==
LOC: PT 07:00
PROVIDERS: PCP Family Medicine
DX: M48.061 Spinal stenosis, lumbar region without neurogenic claudication (principal)
CPT/HCPCS: 97014; 97110; 97162; G0283

== ENCOUNTER 2023-06-30 07:35 | Day surgery (SDC) | payer OTHER, SELFPAY ==
--- NOTE | 2023-06-30 08:00 | H&P.OPEN ---
HPI - General HPI Narrative PRISCILA YAP, is a 48 F who presents for screening colonoscopy. She has never had a colonoscopy in the past. She denies any abdominal pain or blood in the stool. She has no family history of colon cancer. [facility] Medical History (Updated 06/28/23 @ 09:22 by Rebecca Apodaca) History of IBS Hypothyroid Wears contact lenses Alcohol use Restless legs Migraine headache Heartburn Non-smoker Shortness of breath on exertion Leg cramps History of pain when walking Normal Holter exam History of echocardiogram History of stress test Cardiology follow-up encounter Essential hypertension HTN (hypertension) Pure hypercholesterolemia Nonrheumatic mitral (valve) prolapse Cardiac murmur Tachycardia IBS (irritable bowel syndrome) Thyroid disease RUQ pain Depression Home Medications ?Medication ?Instructions ?Recorded ?Last Taken ?Type linaclotide 145 mcg capsule 145 mcg PO DAILY 07/27/18 06/28/23 History metoprolol succinate 25 mg 25 mg PO DAILY #90 tabs 07/13/21 06/30/23 Rx tablet,extended release 24 hr levothyroxine 75 mcg tablet 75 mcg PO DAILY 10/15/21 06/29/23 History atorvastatin 20 mg tablet 20 mg PO QHS #90 tabs 02/27/23 06/29/23 Rx calcium lactate 100 mg calcium 100 mg PO DAILY 03/21/23 06/29/23 History tablet cyanocobalamin (vitamin B-12) 1,000 mcg PO DAILY 03/21/23 06/29/23 History 1,000 mcg capsule multivitamin 1 tab PO DAILY 03/21/23 06/29/23 History lisinopril 10 1 tab PO DAILY #90 tabs 04/27/23 06/29/23 Rx mg-hydrochlorothiazide 12.5 mg tablet citalopram 20 mg tablet 20 mg PO DAILY #90 tabs 06/22/23 06/29/23 Rx Allergy/AdvReac Type Severity Reaction Status Date / Time sertraline (From Zoloft) AdvReac Eye Verified 06/30/23 07:59 twitching Family History Mother Heart disease Hypertension CAD (coronary artery disease) Atrial fibrillation Grandfather Heart disease Brother Myocardial infarction Sister Skin cancer Other Sleep apnea Surgical History S/P lumbar microdiscectomy Hx of dilation and curettage H/O lithotripsy (~1995) History of oral surgery History of tubal ligation (~2000) Hx of tonsillectomy Social History adopted: No household members: family housing: house number of children: 1 current occupational status: employed 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 [employer] current occupational exposures/hazards: No pets and animals: Yes history of recent travel: No Smoking Status: Never smoker second hand exposure: No alcohol intake: current alcohol intake frequency: holidays/special occasions only substance use type: does not use caffeine: No seatbelt use: always do you feel safe at home: Yes additional social history: - Ebenezer Past Medical/Surgical History Planned Operation Planned Operative Procedure/s: COLONOSCOPY Previous Hospitalizations/Surgeries HX Hospitalizations: Yes (BACK SURGERY) Any Problems With Anesthesia: No You/Your Family Experience Fever (Hyperthermia) With Anes: No Cholinesterase deficiency: No Cardiovascular Hx of Irregular Heartbeat and/or Afib: No Hx Heart Attack: No Hx Congestive Heart Failure: No Hx Hypertension: Yes Hx Pacemaker: No Respiratory Hx Chronic Obstructive Pulmonary Disease (COPD): No Hx Asthma: No Hx Emphysema: No Hx Sleep Apnea: Yes CPAP: Yes BIPAP: No Hx Respiratory Tract Infection/Cold (presently): No Result (for STOP score): Positive Hx Smoking: No Smoking Status: Never smoker Gastrointestinal Hx Ulcer: No Special diet followed at home: No Neurological Hx Seizures: No Hx Headaches: No Does patient have nerve stimulator: No Blood Disorder Hx Hepatitis: No Hx Cirrhosis: No Hx Anemia: No Reproduction : No Genitourinary Hx Renal Disease: No Hx Dialysis: No Musculoskeletal Hx Arthritis: No Endocrine Hx Diabetes: No Thyroid Disease: Yes Psycho/Social Hx Depression: No Hx Dementia: No Miscellaneous Hx Cancer: No Recent Exposure to Contagious Disease: No Allergies sertraline (From Zoloft) Adverse Reaction (Verified 06/30/23 07:59) Eye twitching Discharge Is Pt Admitted From a Senior Care, or a Residential: No Who Could Help: MOM After D/C, Where Do you Plan to Go: Return Home Physical Exam Const alert and oriented x3 HEENT normocephalic Eyes PERRL Resp normal respiratory effort and normal air movement Cardio regular rate and regular rhythm GI soft to palpation, non-tender and non-distended Extremity normal to inspection Assessment & Plan Assessment/Plan (1) Encounter for screening for malignant neoplasm of colon: PLAN: I explained endoscopy in detail to the patient. I explained the risks including but not limited to stroke or heart attack with anesthesia, perforation of the GI tract, bleeding, infection. I explained that any of these could necessitate further emergency surgery. The patient understands and all questions were answered sufficiently. The patient wishes to proceed with procedure. Ra Sun MD Pager: [facility] [address] [place] [address], [address] [place] [address] Office: Surgery Risks - Colonoscopy Risks Include but are not Limited To: Risks include but are not limited to: Bleeding, perforation requiring further surgery, inability to complete colonoscopy requiring barium enema.
[2023-06-30] MEDS: Lactated Ringers 1,000 ML 15 ML IV (08:02)
[2023-06-30 08:03] VITALS: BP 122/60; PULSE 72; RESP 16; TEMP 36.6; O2SAT 97; BMI 32.3
--- NOTE | 2023-06-30 08:30 | COLBX_PTH ---
PATIENT: PRISCILA YAP LOC: EN U#:[id number] AGE/SX: 48/F ROOM: RE06/30/[address]: Dr. Ra Sun MD : 1975 BED: DIS: 06/30/2023 SPEC #: [id number] RECD: 06/30/23 10:42 STATUS: REJI RENaresh #: [id number] JACY: 06/30/23 08:[address]: Ra Sun DEPT: SURGICAL PATHOLOGY RECD BY: Mariah Chacon ENTERED: 06/30/23 11:09 SP TYPE: COLON BX OTHR DR: Dr. Yoandy Niño MD Tissues: Rectum, NOS Procedures: Surgery Specimen Level IV HEADER OPERATION: Colonoscopy, polypectomy PRE-OP DIAGNOSIS: Encounter for screening for malignant neoplasm of colon TISSUE SUBMITTED: Rectal polyp MICROSCOPIC DIAGNOSIS Rectal polyp, biopsy: Hyperplastic polyp with cautery artifact. AM/mr 07/03/2023 MICROSCOPIC DESCRIPTION Slides are reviewed. GROSS DESCRIPTION Received in fixative is one container labeled with the patient's name and designated Rectal polyp. The specimen consists of one irregular fragment of light hernandez soft tissue that measures 0.1cm in greatest dimension. The specimen is totally submitted in one cassette. MOHAMUD/ 06/30/2023 TC:5 CPT:87160
[2023-06-30 08:38] VITALS: BP 122/60; BP 97/55; PULSE 68; RESP 16; TEMP 36.5; O2SAT 99
[2023-06-30 08:40] VITALS: BP 122/60; BP 95/48; PULSE 71; RESP 16; O2SAT 95
--- NOTE | 2023-06-30 08:49 | OP.CCLET_ITS ---
06/30/2023 Mando Niño [address] [place] [address] Re : Colonoscopy procedure for Roma Lockwood Dear Dr. Niño This procedure was performed on Friday, June 30, 2023. My impressions and recommendations are as follows: Impressions : - One diminutive polyp in the rectum, removed with a hot snare. Resected and retrieved. - The examination was otherwise normal on direct and retroflexion views. Recommendations : - Discharge patient to home. - Resume previous diet. - Continue present medications. - Await pathology results. - Repeat colonoscopy in 10 years for surveillance. My findings are described in the full procedure note, which is enclosed. If I can be of further assistance, please feel free to contact me at Doctor phone number(s): , Work: . Sincerely, Ra Sun MD 06/30/2023 8:48:21 AM This report has been signed electronically.
--- NOTE | 2023-06-30 08:49 | OP.COLON_ITS ---
Patient Name: Roma Lockwood Procedure Date: 06/30/2023 8:03 AM Date of : 1975 Age: 48 Procedure: Colonoscopy Indications: Screening for colorectal malignant neoplasm Providers: Ra Sun MD Referring MD: Mando Niño Medicines: Propofol per Anesthesia Patient Profile: This is a 48 year old female. Refer to note in patient chart for documentation of history and physical. Last Colonoscopy: none. The patient's first colonoscopy is today. Complications: No immediate complications. Estimated blood loss: Minimal. Procedure: Pre-Anesthesia Assessment: - Prior to the procedure, a History and Physical was performed, and patient medications and allergies were reviewed. The patient's tolerance of previous anesthesia was also reviewed. The risks and benefits of the procedure and the sedation options and risks were discussed with the patient. All questions were answered, and informed consent was obtained. Prior Anticoagulants: The patient has taken no anticoagulant or antiplatelet agents. After reviewing the risks and benefits, the patient was deemed in satisfactory condition to undergo the procedure. After I obtained informed consent, the scope was passed under direct vision. Throughout the procedure, the patient's blood pressure, pulse, and oxygen saturations were monitored continuously. The colonoscope was introduced through the anus and advanced to the cecum, identified by appendiceal orifice and ileocecal valve. The colonoscopy was performed without difficulty. The patient tolerated the procedure well. The quality of the bowel preparation was good. The ileocecal valve, appendiceal orifice, and rectum were photographed. Scope In: 8:19:54 AM Scope Withdrawal Time 0 hours 7 minutes 0 seconds Scope Out: 8:31:46 AM Total Procedure Duration Time 0 hours 11 minutes 52 seconds Findings: A diminutive polyp was found in the rectum. The polyp was hyperplastic. The polyp was removed with a hot snare. Resection and retrieval were complete. The exam was otherwise without abnormality on direct and retroflexion views. Impression: - One diminutive polyp in the rectum, removed with a hot snare. Resected and retrieved. - The examination was otherwise normal on direct and retroflexion views. Recommendation: - Discharge patient to home. - Resume previous diet. - Continue present medications. - Await pathology results. - Repeat colonoscopy in 10 years for surveillance. Procedure Code(s): --- Professional --- 58833, Colonoscopy, flexible; with removal of tumor(s), polyp(s), or other lesion(s) by snare technique Diagnosis Code(s): --- Professional --- Z12.11, Encounter for screening for malignant neoplasm of colon D12.8, Benign neoplasm of rectum CPT copyright 2021 [employer]. All rights reserved. The codes documented in this report are preliminary and upon nuclear technician review may be revised to meet current compliance requirements. Ra Sun MD 06/30/2023 8:48:21 AM This report has been signed electronically. Number of Addenda: 0 Note Initiated On: 06/30/2023 8:03 AM
[2023-06-30 08:50] VITALS: BP 122/60; BP 98/67; PULSE 64; RESP 16; O2SAT 98
[2023-06-30 08:55] VITALS: BP 104/75; BP 122/60; PULSE 75; RESP 16; TEMP 36.7; O2SAT 96
[2023-06-30 09:14] VITALS: BP 122/60
== END 2023-06-30 09:19 | disposition home or self-care (01) ==
LOC: EN 07:35 → AC 07:36
PROVIDERS: PCP Family Medicine; Referring Provider Family Medicine; Visit Provider Surgery
PROC: 0DJD8ZZ Inspection of Lower Intestinal Tract, Via Natural or Artificial Opening Endoscopic (ICD-10-PCS; CPT 45378; principal; 2023-06-30 08:25)
DX: Z12.11 Encounter for screening for malignant neoplasm of colon (principal); E78.00 Pure hypercholesterolemia, unspecified; Z90.49 Acquired absence of other specified parts of digestive tract; I10 Essential (primary) hypertension; D12.8 Benign neoplasm of rectum; Z98.51 Tubal ligation status
CPT/HCPCS: 45385; 88305; J7120; J2405

== ENCOUNTER 2023-09-13 17:30 | Outpatient (RCR) | payer SELFPAY | END 2023-09-13 23:59 | LOC: NS 17:30 | PROVIDERS: PCP Family Medicine | DX: Z71.3 Dietary counseling and surveillance (principal) ==

== ENCOUNTER → 2023-11-03 | Outpatient (CLI) | payer OTHER, SELFPAY ==
[2023-11-03 08:56] LABS: Free T3 2.8 pg/mL (2.18-3.98); T4 Free Direct 1.02 ng/dL (0.76-1.46); Thyroid Stim Hormone (TSH) 0.941 uIU/mL (0.358-3.740)
== END | disposition home or self-care (01) ==
PROVIDERS: PCP Family Medicine; Referring Provider Family Medicine; Visit Provider Family Medicine
DX: E03.9 Hypothyroidism, unspecified (principal)
CPT/HCPCS: 36415; 84439; 84443; 84481

== ENCOUNTER → 2024-04-09 | Outpatient (CLI) | payer OTHER, SELFPAY ==
[2024-04-14 06:37] LABS: HPV APTIMA, High Risk Negative (Negative)
== END | disposition home or self-care (01) ==
LOC: LABSPEC 16:11
PROVIDERS: PCP Family Medicine; Visit Provider Nurse Practitioner Women's Health
DX: Z12.4 Encounter for screening for malignant neoplasm of cervix (principal)
CPT/HCPCS: 87624; 88175; G0145

== ENCOUNTER → 2024-04-19 | Outpatient (CLI) | payer OTHER, SELFPAY ==
--- NOTE | 2024-04-19 07:30 | BI_ITS ---
PROCEDURE: SCRN MAMM (CAD)W/REILLY BILAT REASON FOR EXAM: F, Age 49 y/o , . Routine mammographic follow-up. No family history. TECHNIQUE: Bilateral screening digital breast tomosynthesis with 2D and 3D images. Computer aided detection. COMPARISON: Prior exam(s) dating back to April 13, 2023.. FINDINGS: No suspicious masses, areas of developing architectural distortion, or suspicious calcifications. The breasts are extremely dense which lowers the sensitivity of mammography. Stable small bilateral axillary lymph nodes. BI/SCRN MAMM (CAD)W/REILLY BILAT IMPRESSION: BI-RADS 2: BENIGN. RECOMMEND ANNUAL MAMMOGRAPHIC SCREENING. Follow-up code: Routine Follow-up The patient will be notified of the results by letter. Reading Location: [id number]
== END | disposition home or self-care (01) ==
LOC: OPBI 07:34
PROVIDERS: PCP Family Medicine; Referring Provider Nurse Practitioner Women's Health; Visit Provider Nurse Practitioner Women's Health
DX: Z12.31 Encounter for screening mammogram for malignant neoplasm of breast (principal)
CPT/HCPCS: 77063; 77067

== ENCOUNTER → 2024-07-15 | Outpatient (CLI) | payer OTHER, SELFPAY | END | disposition home or self-care (01) | LOC: LABSPEC 08:17 | PROVIDERS: PCP Family Medicine; Visit Provider Nurse Practitioner Family | DX: R82.90 Unspecified abnormal findings in urine (principal) | CPT/HCPCS: 87086 ==

== ENCOUNTER → 2024-09-29 | Outpatient (CLI) | payer OTHER, SELFPAY | END | disposition home or self-care (01) | LOC: LABSPEC 09-30 08:29 | PROVIDERS: PCP Family Medicine; Visit Provider Physician Assistant Surgical | DX: R30.0 Dysuria (principal) | CPT/HCPCS: 87086; 87088 ==

== ENCOUNTER → 2024-10-16 | Outpatient (CLI) | payer OTHER, SELFPAY ==
--- NOTE | 2024-10-16 06:47 | CT_ITS ---
PROCEDURE: LIMITED CHEST CT CARDIAC ONLY 10/16/2024 REASON FOR EXAM: BROTHER OF SUDDEN CARDIAC AGE 42 TECHNIQUE: Procedure Code: [id number] Modality: CT Procedure: LIMITED CHEST CT CARDIAC ONLY CONTRAST: None One or more dose reduction techniques were used (e.g., Automated exposure control, adjustment of the mA and/or kV according to patient size, use of iterative reconstruction technique). RADIATION DOSE SUMMARY: CTDlvol: 12.19 mGy DLP: 170.66 mGycm COMPARISON: None FINDINGS: Small benign-appearing mediastinal lymph nodes. The heart is nonenlarged. No evidence of coronary artery calcification. The lungs are clear. CT/Limited Chest CT Cardiac Only IMPRESSION: No coronary artery calcification seen. Reading Location: [place] [id number]
--- OUTSIDE RECORDS SUMMARY | 2024-10-16 06:52 | XMS RPT_ITS | CCD ---
Author Organization [facility] Care Team Providers Care Double Cut Off Saw Operator Name Role Phone Margo Christina LPN Unavailable Unavailab marian Lieberman SIGNAL MAINTENANCE TECHNICIAN-C, Michael Rashid Unavailable Unavailable Dossi DC, Hansa B Unavailable Celia Bazzi LPN Unavailable Unavailable Dossi DC, Hansa B Unavailable Celia Bazzi LPN Unavailable Unavailable Gerhard Horn (Historical) Primary Care Prov ider Unavailable Royce Niño Primary Care Provider Dr. Mando Niño Primary Care Provider Dr. Mando Niño Referring Provider Dr. Hansa Pagan Attending Provider [phone] Dr. Imtiaz Ayers Attending Provider [phone] Dr. Mando Niño Primary Care Provider Dr. Mando Niño Referring Provider Dr. Hansa Pagan Attending Provider [phone] Dr. Imtiaz Ayers Attending Provider [phone] Dr. Mando Niño Primary Care Provider Dr. Mando Niño Referring Provider Kathrine MEDEIROS NP-Inga Arreguin Attending Provider Dr. Mando Niño Primary Care Provider Dr. Mando Niño Referring Provider Kathrine MEDEIROS NP-Inga Arreguin Attending Provider Dr. Hansa Pagan Attending Provider Dr. Mando Niño Primary Care Provider Dr. Mando Niño Referring Provider Dr. Mando Niño Primary Care Provider Dr. Mando Niño Referring Provider Justen STUDIO OPERATION ENGINEER, STUDIO OPERATION ENGINEER-C [place] Attending Provider [phone] Dr. Mando Niño Primary Care Provider [place], Dr. Gilmore Referring Provider Justen STUDIO OPERATION ENGINEER, STUDIO OPERATION ENGINEER-C [place] Attending Provider Dr. Mando Niño Primary Care Provider Dr. Mando Niño Referring Provider Dr. Conor Casillas Attending Provider Dhara Brower Attending Provider Unavailable Kathrine STUDIO OPERATION ENGINEER, STUDIO OPERATION ENGINEER-C Kallie Attending Provider Dr. Mando Niño Primary Care Provider Dr. Mando Niño Referring Provider Dr. Conor Casillas Attending Provider [phone] Dhara Brower Attending Provider Unavailable Donnellson STUDIO OPERATION ENGINEER, STUDIO OPERATION ENGINEER-C Kallie Attending Provider Dr. Royce Niño Primary Care Provider [phone] Dr. Royce Niño Referring Provider [phone] Dr. Justen Jacobson Attending Provider Dr. Royce Niño MD Primary Care Provider Dr. Royce Niño MD Referring Provider [phone] Kathrine STUDIO OPERATION ENGINEER-CKallie Attending Provider Kathrine STUDIO OPERATION ENGINEER-CKallie Referring Provider Justen MEDEIROS-CTemitope Attending Provider Assessment, Health Risk Attending Provider Unava ilable Assessment, Health Risk Referring Provider Unava ilable Roof STUDIO OPERATION ENGINEER-C, Ricardo Recinos Attending Provider [phone] Royce Niño MD Primary Care Provider KENNY SAMANO Attending Unavailable [place], ROYCE B Primary Care Unavailabl e [place] M[facility]ES [facility] OCA, Dr. Pitt Primary Care Provider Dr. Royce Niño MD Referring Provider [phone] Tonny Gomez Attending Provider Matheus Frank Attending Provider Royce Niño Referring Unavailable Kathrine MEDEIROS, Kallie Attending Unavailable [place] Unavailable Tonny Nguyen Attending Unavailable [place], [place] Primary Care Unavailable [place], Royce Referring Unavailable [place], [place]o Primary Care Unavailable Ricardo Luz NP Attending Unavailable Royce Niño Referring Unavailable Royce Niño Referring Unavailable [place] Campuzano Attending Unavailable [facility], [place] Primary Care Unavailable Kathrine STUDIO OPERATION ENGINEER, Kallie Attending Unavailable [place], [place]o Primary Care Unavailable [facility], [place] Primary Care Unavailable Assessment, Health Risk Attending Unavaila ble Assessment, Health Risk Referring Unavaila ble Royce Niño Referring Unavailable [place], [facility] Unavailable Royce Niño Attending Unavailable [place], [place] Primary Care Unavailable Matheus Frank Attending Unavailable [place], [place] Primary Care Unavailable Roof Ricardo MEDEIROS Attending Unavailable Kallie Chisholm NP Referring Unavailable [facility] Unavailable Kathrine STUDIO OPERATION ENGINEERKallie Attending Unavailable Allergies Allergy Classification Reported Allergen(s) Allergy Type Date of Onset Reaction(s) Facility (9 sources) Sertraline Drug Allergy 04-03-2023 Eye twitching [facility] (1 source) Sertraline Drug Allergy 09-28-2024 [facility] Repository Medications Current Medications Medication Drug Class(es) Dates Sig (Normalized) Sig (Original) calcium citrate 1190 mg / cholecalciferol 0.005 mg oral tablet (2 sources) Vitamin D Start: 01-13-2005 CITRACAL + D 250 MG-62.5 UNIT TAB 0 01/13/2005 Active calcium lactate 100 mg oral capsule (3 sources) Start: 03-21-2023 take 100 mg by mouth once daily Calcium Lactate Active 100 MG PO DAILY March 21, 2023 1:00am Calcium Lactate 100 mg calcium tablet (6 sources) Start: 03-21-2023 take 1 tablet by mouth once daily Calcium Lactate 100 mg calcium tablet Active 100 mg PO DAILY March 21, 2023 1:00am citalopram 10 mg oral tablet (20 sources) Serotonin Reuptake Inhibitor Start: 08-29-2024 take 1 tablet by mouth once daily Citalopram 10 mg tablet Active 10 mg PO daily 90 0 August 29, 2024 12:00am Start: 08-28-2024 End: 08-29-2024 take 10 mg by mouth once daily Citalopram 20 mg tablet Discontinued 10 mg PO daily 30 3 August 28, 2024 8:54am August 29, 2024 1:07pm Start: 05-02-2024 End: 08-28-2024 take 1 tablet by mouth once daily Citalopram 20 mg tablet Discontinued 20 mg PO daily May 02, 2024 12:00am August 28, 2024 8:54am Start: 07-17-2023 End: 05-02-2024 take 1 tablet by mouth once daily Citalopram 40 mg tablet Discontinued 40 mg PO DAILY 90 2 July 17, 2023 12:00am May 02, 2024 9:42am Start: 06-21-2023 End: 07-17-2023 take 1 tablet by mouth once daily Citalopram 20 mg tablet Discontinued 20 mg PO DAILY 90 June 22, 2023 9:04am July 17, 2023 8:36am Start: 03-22-2020 End: 06-21-2023 take 1 tablet by mouth once daily Citalopram 40 mg tablet Discontinued 40 mg PO DAILY 90 3 March 28, 2022 11:54am June 21, 2023 8:59am Start: 01-28-2019 End: 03-22-2020 take 1 tablet by mouth once daily Citalopram 20 mg tablet Discontinued 20 mg PO daily 90 4 January 28, 2020 2:37pm March 22, 2020 3:09pm Pure hypercholesterolemia, unspecified Start: 12-06-2010 End: 01-28-2019 take 1 tablet by mouth once daily Citalopram 10 mg tablet Discontinued 10 mg PO daily April 12, 2017 1:00am January 28, 2019 2:22pm DAILY MULTIPLE TAB (2 sources) Start: 01-13-2005 DAILY MULTIPLE TAB 0 01/13/2005 Active fluconazole 150 mg oral tablet (20 sources) Azole Antifungal Start: 09-28-2024 take 1 tablet by mouth once Fluconazole 150 mg tablet Active 150 mg PO ONCE 1 September 28, 2024 12:00am as a single dose Start: 10-29-2020 End: 01-12-2021 take 1 tablet by mouth once daily Fluconazole 200 mg tablet Discontinued 200 mg PO DAILY 1 October 29, 2020 12:00am January 12, 2021 3:48pm hold citalopram while on this medication Start: 01-08-2018 End: 05-14-2018 Fluconazole 150 mg tablet Discontinued 150 mg PO .COMPLEX 2 January 08, 2018 1:00am May 14, 2018 4:43pm 150 mg PO take one po now and repeat in 3 days hydroCHLOROthiazide 12.5 mg / lisinopril 10 mg oral tablet (20 sources) Thiazide Diuretic, Angiotensin Converting Enzyme Inhibitor Start: 07-15-2024 take 10-12.5 mg by mouth once lisinopril-hydroCHLOROthiazide (ZESTORETIC) 10-12.5 mg per tablet Take 1 tablet by mouth once daily. 07/15/2024 Active Start: 06-14-2018 End: 04-18-2024 Lisinopril-Hydrochlorothiazi de 10-12.5 mg tablet Discontinued 1 {tbl} PO DAILY 90 April 27, 2023 9:47am April 18, 2024 9:05am Start: 06-14-2018 End: 04-27-2023 take 1 tablet by mouth once daily Lisinopril-Hydrochlorothiazide Active 1 TABLET PO DAILY April 27, 2023 9:47am linaclotide 0.145 mg oral capsule (20 sources) Guanylate Cyclase-C Agonist Start: 05-26-2016 LINZESS 145 MCG CAPS 1 daily LINACLOTIDE [id number] Geraldien Rodriguez Start: 04-10-2016 End: 07-27-2018 take 1 capsule by mouth once daily Linaclotide 145 mcg capsule Active 145 ug PO DAILY July 27, 2018 9:34am Multivitamin preparation (3 sources) Start: 03-21-2023 take 1 tablet by mouth once daily Multivitamin Active 1 TABLET PO DAILY March 21, 2023 1:00am Start: 03-21-2023 take 1 tablet by laurie th once daily Multivitamin Active 1 TABLET PO DAILY March 21, 2023 12:00am Multivitamin tablet (6 sources) Start: 03-21-2023 Multivitamin t ablet Active 1 {tbl} PO DAILY March 21, 2023 1:00am levothyroxine sodium 0.075 mg oral tablet (20 sources) l-Thyroxi ne Start: 10-15-2021 take 1 tablet by mouth once daily Levothyroxine 75 mcg tablet Active 75 ug PO DAILY October 15, 2021 12:00am Start: 05-26-2016 SYNTHROID 100 MCG TABS 1 daily LEVOTHYROXINE SODIUM [id number] Geraldine Rodriguez Start: 05-26-2016 SYNTHROID 100 MCG TABS 1 daily LEVOTHYROXINE SODIUM [id number] Geraldine Rodriguez Start: 04-10-2016 End: 10-15-2021 Levothyroxine 50 MCG tablet Discontinued 75 ug PO DAILY April 10, 2016 1:00am October 15, 2021 11:50am Start: 04-10-2016 End: 10-15-2021 take 75 ug by mouth once daily Levothyroxine Discontin ued 75 MCG PO DAILY April 10, 2016 1:00am October 15, 2021 11:50am Vitamin B Complex (2 sources) Start: 07-30-2009 vitamin b comp mike(B COMPLEX-VITAMIN B12 TAB) one tablet daily 0 07/30/2009 Active Completed/Discontinued Medications Medication Drug Class(es) Dates Sig (Normalized) Sig (Original) atorvastatin 20 mg oral tablet (20 sources) HMG-CoA Reductase Inhibitor Start: 11-05-2018 End: 03-04-2024 take 1 tablet by mouth at bedtime Atorvastatin 20 mg tablet Discontinued 20 mg PO AT BEDTIME 90 3 February 27, 2023 12:09pm March 04, 2024 12:22pm folic acid 1 mg oral tablet (11 sources) Start: 01-13-2005 End: 05-01-2023 take 1 tablet by mouth once daily Folic Acid 1 mg tablet Discontinued 1 mg PO DAILY March 21, 2023 1:00am May 01, 2023 7:48am gabapentin 300 mg oral capsule (20 sources) Anti-epileptic Agent Start: 05-01-2023 End: 06-28-2023 take 1 capsule by mouth once daily Gabapentin 300 mg capsule Discontinued 300 mg PO DAILY May 01, 2023 7:48am June 28, 2023 9:08am pain Start: 04-03-2023 End: 05-01-2023 take 1 capsule by mouth twice daily Gabapentin 300 mg capsule Discontinued 300 mg PO TWICE A DAY April 03, 2023 10:34am May 01, 2023 7:49am pain Start: 08-25-2022 End: 04-03-2023 take 1 capsule by mouth three times daily as needed for pain Gabapentin 300 mg capsule Discontinued 300 mg PO THREE TIMES A DAY as needed for pain August 25, 2022 12:00am April 03, 2023 10:35am medroxyPROGESTERone acetate 10 mg oral tablet (20 sources) Progestin Start: 03-22-2021 End: 04-01-2021 take 1 tablet by mouth once daily Medroxyprogesterone 10 mg tablet Discontinued 10 mg PO daily 10 10 0 March 22, 2021 1:00am March 31, 2021 1:00am April 01, 2021 1:03am meloxicam 7.5 mg oral tablet (14 sources) Nonsteroidal Anti-inflammator y Drug Start: 08-25-2022 End: 05-01-2023 take 1 tablet by mouth once daily Meloxicam 7.5 mg tablet Discontinued 7.5 mg PO DAILY August 25, 2022 12:00am May 01, 2023 7:49am methocarbamol 500 mg oral tablet (14 sources) Muscle Relaxant Start: 08-25-2022 End: 04-03-2023 take 1 tablet by mouth three times daily as needed for pain Methocarbamol 500 mg tablet Discontinued 500 mg PO THREE TIMES A DAY as needed for pain August 25, 2022 12:00am April 03, 2023 10:36am 24 hr metoprolol succinate 25 mg extended release oral tablet (20 sources) beta-Adrenergic Kathy Start: 06-22-2018 End: 07-13-2021 take 1 tablet by mouth once daily Metoprolol Succinate 25 mg tablet extended release 24 hr Discontinued 25 mg PO DAILY 90 3 July 21, 2020 2:35pm July 13, 2021 5:14pm nitrofurantoin 100 mg oral tablet (4 sources) Start: 08-18-2016 End: 08-25-2016 take 1 tablet by mouth twice daily MACROBID 100 MG CAPS One tablet by mouth twice daily NITROFURANTOIN MONOHYD MACRO [id number] Michael Lieberman SIGNAL MAINTENANCE TECHNICIAN-C nitrofurantoin, macrocrystals 25 mg / nitrofurantoin, monohydrate 75 mg oral capsule (20 sources) Nitrofuran Antibacterial Start: 09-28-2024 End: 10-03-2024 take 1 capsule by mouth every twelve hours at mealtime Nitrofurantoin Monohyd/M-Cryst (Macrobid) 100 mg capsule Discontinued 100 mg PO Q12H 10 5 0 September 28, 2024 12:00am October 02, 2024 12:00am October 03, 2024 12:06am must administer with a meal/food Start: 09-12-2024 End: 09-17-2024 take 1 capsule by mouth twice daily nitrofurantoin monohydrate and macrocrystal (MACROBID) 100 mg capsule Take 1 capsule by mouth two times a day for 5 days. 10 capsule 09/12/2024 09/17/2024 Active Start: 07-14-2024 End: 07-21-2024 take 1 capsule by mouth every twelve hours at mealtime Nitrofurantoin Monohyd/M-Cryst (Macrobid) 100 mg capsule Discontinued 100 mg PO Q12H 14 7 0 July 14, 2024 12:00am July 20, 2024 12:00am July 21, 2024 12:08am must administer with a meal/food Start: 10-29-2020 End: 11-03-2020 take 1 capsule by mouth every twelve hours at mealtime Nitrofurantoin Monohyd/M-Cryst (Macrobid) 100 mg capsule Discontinued 100 mg PO Q12H 10 5 0 October 29, 2020 12:00am November 02, 2020 12:00am November 03, 2020 12:01am must administer with a meal/food omeprazole 20 mg delayed release oral tablet (20 sources) Proton Pump Inhibitor Start: 04-24-2017 End: 11-09-2017 take 1 tablet by mouth once daily Omeprazole 20 mg tablet,delayed release (DR/EC) Discontinued 20 mg PO daily 60 2 April 24, 2017 12:00am November 09, 2017 7:25am oxyCODONE hydrochloride 5 mg oral capsule (9 sources) Opioid Agonist Start: 04-03-2023 End: 05-01-2023 take 1 capsule by mouth at bedtime Oxycodone 5 mg capsule Discontinued 5 mg PO AT BEDTIME 0 April 03, 2023 1:00am May 01, 2023 7:49am phenazopyridine hydrochloride 200 mg oral tablet (20 sources) Start: 10-29-2020 End: 01-12-2021 take 1 tablet by mouth three times daily as needed for pain Phenazopyridine (Pyridium) 200 mg tablet Discontinued 200 mg PO THREE TIMES A DAY as needed for pain 6 0 October 29, 2020 12:00am January 12, 2021 3:49pm predniSONE 10 mg oral tablet (20 sources) Corticosteroid Start: 03-02-2020 End: 03-14-2020 Prednisone 10 mg tablet Discontinued 10 mg PO daily 30 12 0 March 02, 2020 1:00am March 13, 2020 1:00am March 14, 2020 1:03am Unspecified contact dermatitis, unspecified cause Take 4 tabs once daily days 1-3 3 tabs once daily days 4-6 2 tabs once daily days 7-9 and 1 tab once daily days 10-12. Start: 07-27-2016 End: 08-08-2016 PREDNISONE 10 MG TABS 4 tabl ets daily for 3 days, then 3 tablest daily for 3 days, then 2 tablets daily for 3 days, then 1 tablet daily for 3 days. PREDNISONE [id number] Matheus COYLE sucralfate 1000 mg oral tablet (20 sources) Aluminum Complex Start: 05-03-2017 End: 11-09-2017 take 1 tablet by mouth four times daily Sucralfate 1 GM tablet Discontinued 1 g PO 4 TIMES DAILY 120 0 May 03, 2017 12:00am November 09, 2017 7:25am sulfamethoxazole 800 mg / trimethoprim 160 mg oral tablet (20 sources) Dihydrofolate Reductase Inhibitor Antibacterial, Sulfonamide Antimicrobial Start: 05-14-2018 End: 05-21-2018 Sulfamethoxazole-Tr imethoprim (Bactrim Ds) 800-160 mg tablet Discontinued 1 {tbl} PO Q12H 14 7 0 May 14, 2018 12:00am May 20, 2018 12:00am May 21, 2018 12:08am traMADol hydrochloride 50 mg oral tablet (19 sources) Opioid Agonist Start: 01-30-2023 End: 04-03-2023 take 1 tablet by mouth twice daily as needed Tramadol 50 mg tablet Discontinued 50 mg PO TWICE A DAY as needed February 14, 2023 3:40pm April 03, 2023 10:36am vitamin b12 1 mg oral capsule (9 sources) Vitamin B12 Start: 03-21-2023 End: 09-28-2024 take 1 capsule by mouth once daily Cyanocobalamin (Vitamin B-12) 1,000 mcg capsule Discontinued 1000 ug PO DAILY March 21, 2023 1:00am September 28, 2024 8:15am Problems Active Problems Problem Classification Problem Date Documented Da te Episodic/Chronic Anxiety disorders (20 sources) Mixed anxiety and depressive disorder; Translations: [Anxiety disorder, unspecified] 01-28-2020 Chronic Comment on above: citalopram Cardiac dysrhythmias (20 sources) Tachycardia; Translations: [Tachycardia, unspecified] Episodic Disorders of lipid metabolism (20 sources) Hypercholesterolemi a; Translations: [Pure hypercholesterolemi a] Onset: 05-26-2016 05-26-2016 Chronic Essential hypertension (20 sources) Hypertensive disorder; Translations: [Essential hypertension] Onset: 05-26-2016 05-26-2016 Chronic Comment on above: CONTROLLED WITH MED Genitourinary symptoms and ill-defined conditions (8 sources) Increased frequency of urination; Translations: [Scalding pain on urination ] Onset: 08-18-2016 08-18-2016 Episodic Headache; including migraine (20 sources) Cervicogenic headache; Translations: [Cervicogenic headache] Episodic Heart valve disorders (20 sources) Mitral valve prolapse; Translations: [Nonrheumatic mitral (valve) prolapse] Chronic Heart valve disorders (20 sources) Heart murmur; Translations: [Cardiac murmur, unspecified] 07-26-2018 Episodic Menstrual disorders (20 sources) Dysmenorrhea; Translations: [Irregular periods] Onset: 07-30-2009 07-30-2009 Chronic Open wounds of extremities (20 sources) Laceration of right index finger; Translations: [Laceration without foreign body of right index finger without damage to nail, initial encounter] 10-24-2018 Episodic Other bone disease and musculoskeletal deformities (20 sources) Segmental and somatic dysfunction; Translations: [Segmental and somatic dysfunction of cervical region] Onset: 05-26-2016 05-26-2016 Episodic Other bone disease and musculoskeletal deformities (10 sources) Segmental and somatic dysfunction of cervical region; Translations: [Nonallopathic lesions, cervical region] Episodic Other bone disease and musculoskeletal deformities (14 sources) Segmental and somatic dysfunction of lumbar region; Translations: [Nonallopathic lesions, lumbar region] Episodic Other bone disease and musculoskeletal deformities (10 sources) Segmental and somatic dysfunction of thoracic region; Translations: [Nonallopathic lesions, thoracic region] Episodic Other bone disease and musculoskeletal deformities (4 sources) Segmental and somatic dysfunction of pelvic region; Translations: [Nonallopathic lesions, pelvic region] 06-08-2022 Episodic Other female genital disorders (3 sources) Dyspareunia; Translations: [Dyspareunia] Onset: 07-30-2009 07-30-2009 Chronic Other female genital disorders (3 sources) Premenstrual tension syndrome; Translations: [Premenstrual tension syndrome] Onset: 12-06-2010 12-06-2010 Chronic Other gastrointestinal disorders (11 sources) Irritable bowel syndrome; Translations: [Irritable bowel syndrome without diarrhea] Onset: 05-26-2016 05-26-2016 Chronic Other hereditary and degenerative nervous system conditions (13 sources) Restless legs; Translations: [Restless legs syndrome] 10-10-2022 Chronic Comment on above: OCC Other hereditary and degenerative nervous system conditions (5 sources) Restless legs syndrome; Translations: [Restless legs syndrome (RLS)] 10-10-2022 Chronic Other nutritional; endocrine; and metabolic disorders (16 sources) Obese class I; Translations: [Obesity, unspecified] 10-10-2022 Chronic Other nutritional; endocrine; and metabolic disorders (5 sources) Obesity, unspecified; Translations: [Obesity, unspecified] 10-10-2022 Chronic Other upper respiratory disease (8 sources) Nasal congestion; Translations: [Nasal congestion] 05-02-2024 Episodic Residual codes; unclassified (16 sources) Obstructive sleep apnea syndrome; Translations: [Obstructive sleep apnea (adult) (pediatric)] 10-10-2022 Chronic Comment on above: AHI 12.5 with residu al AHI of 0.2 on CPAP 6 cmH2O AHI 12.5 Residual codes; unclassified (5 sources) Obstructive sleep apnea (adult) (pediatric); Translations: [Obstructive sleep apnea (adult)(pediatric)] 10-10-2022 Chronic Residual codes; unclassified (2 sources) Family history of sudden cardiac ; Translations: [Family history of sudden cardiac ] 09-12-2024 Episodic Residual codes; unclassified (2 sources) FH: premature coronary heart disease; Translations: [Family history of ischemic heart disease and other diseases of the circulatory system] 09-12-2024 Episodic Spondylosis; intervertebral disc disorders; other back problems (20 sources) Lumbar radiculopathy; Translations: [Dorsalgia, unspecified] Onset: 05-26-2016 05-26-2016 Episodic Thyroid disorders (1 source) Hypothyroidism, unspecified; Translations: [Hypothyroidism, unspecified] Onset: 11-27-2023 Chronic Urinary tract infections (20 sources) Acute cystitis; Translations: [Urinary tract infectious disease] Onset: 08-18-2016 08-18-2016 Episodic Past or Other Problems Problem Classification Problem Date Documented Da te Episodic/Chronic Allergic reactions (6 sources) Contact dermatitis due to plants; Translations: [Unspecified contact dermatitis due to plants, except food] Onset: 07-27-2016 07-27-2016 Episodic Calculus of urinary tract (11 sources) Kidney stone; Translations: [Calculus of kidney] Onset: 05-26-2016 05-26-2016 Episodic Other screening for suspected conditions (not mental disorders or infectious disease) (20 sources) Patient encounter status; Translations: [Encounter for screening for malignant neoplasm of colon] Onset: 04-09-2024 01-28-2021 Episodic Thyroid disorders (11 sources) Disorder of thyroid gland; Translations: [Disorder of thyroid, unspecified] Onset: 05-26-2016 05-26-2016 Episodic Results Test Name Value Interpretation Reference Range Facility Urine Cultureon 10-02-2024 [facility] Below infection leve l. Mixed Gram Pos Gram Neg Org [place] Count <1000 [facility] Mixed contaminants. Submit a new specimen if indicated. [facility] Comment on above: Performed By: #### M 100.2200 #### [facility] [address] [place], [place], [address] Urine cultureOrdered By: Fiordaliza Nguyen on 09-30-2024 Bacteria identified Cx Nom (U) Mixed Gram Pos & Gram Neg Org Abnormal [facility] - Chemistry and C hemistry - challengeOrdered By: Tonny Nguyen on 09-28-2024 Bilirubin Ql (U) Moderate (2+) [facility] Glucose Ql (U) Negative [facility] Ketones Ql (U) Negative [facility] pH (U) 5.0 [pH] [facility] Specific gravity (U) [Rel density] 1.015 [facility] Urobilinogen (U) [Mass/Vol] 1 mg/dL [facility] - Hematology and Cell countsOrdered By: Tonny Nguyen on 09-28-2024 Hemoglobin Ql (U) Large [facility] - Specimen inform ationOrdered By: Tonny Nguyen on 09-28-2024 Clarity (U) Cloudy [facility] Color (U) Red [facility] - UrinalysisOrder ed By: Tonny Nguyen on 09-28-2024 Nitrite Ql (U) Positive [facility] Protein Ql (U) Trace [facility] No Panel InformationOrdered By: Tonny Nguyen on 09-28-2024 Urine Leukocytes Positive [facility] Urine Non-Hemolyzed Blood [facility] Urgent Care Visit Reporton 0 09-28-2024 Urgent Care Visit Report [facility] [address], [address] [place] [address] OFFICE VISIT Date of Service: 09/28/24 MR#: [id number] Acct: [id number] Name: PRISCILA YAP Rep #: [id number] : 1975 Provider: JONNA Montanez Age/Sex: 49/F Location: [facility] [place] Status: Signed Intake Vital Signs 05/02/24 08:25 09/28/24 08:15 Height 5 ft 5 ft Weight: 174 lb BMI 34.0 BP 136/72 H Blood Pressure Location Lt brachial Position Sitting Pulse 83 Pulse Source Monitor Temp 98.7 F Temp Source Oral Pulse Oximetry (%) 96 Oxygen Delivery Method room air Intake Visit Reasons: CONCERN FOR UTI INFECTION Chief Complaint: UTI Accompanied by: Self Allergies sertraline (From Zoloft) Adverse Reaction (Verified 09/28/24 08:15) Eye twitching Medications ???Medication ???Instructions ???Recorded ???Confirmed ???Type linaclotide 145 mcg capsule 145 mcg PO DAILY 07/27/18 09/28/24 History metoprolol succinate 25 mg 25 mg PO DAILY #90 tabs 07/13/21 0 09/28/24 Rx tablet,extended release 24 hr levothyroxine 75 mcg tablet 75 mcg PO DAILY 10/15/21 09/28/24 History calcium lactate 100 mg PO DAILY 03/21/23 09/28/24 History multivitamin 1 tab PO DAILY 03/21/23 09/28/24 H istory atorvastatin 20 mg tablet 20 mg PO QHS #90 tabs 03/04/24 Rx lisinopril 10 1 tab PO DAILY #90 tabs 04/18/24 0 09/28/24 Rx mg-hydrochlorothiazide 12.5 mg tablet citalopram 10 mg tablet 10 mg PO QDAY #90 tabs 08/29/24 Rx fluconazole 150 mg tablet 150 mg PO ONCE #1 TAB 09/28/24 Rx nitrofurantoin 100 mg PO Q12H 5 days #10 caps 09/28/24 Rx monohydrate/macrocryst als 100 mg capsule (Macrobid) Nurse's Note: Blood in urine, urgency, frequency, burning with urination. Started this morning. [facility] Medical History (Reviewed 05/02/24 @ 09:48 by Temitope Campuzano STUDIO OPERATION ENGINEER, STUDIO OPERATION ENGINEER-C) History of IBS Hypothyroid Wears contact lenses Alcohol use Restless legs Migraine headache Heartburn Non-smoker Shortness of breath on exertion Leg cramps History of pain when walking Normal Holter exam History of echocardiogram History of stress test Cardiology follow-up encounter Essential hypertension HTN (hypertension) Pure hypercholesterolemia Nonrheumatic mitral (valve) prolapse Cardiac murmur Tachycardia IBS (irritable bowel syndrome) Thyroid disease RUQ pain Depression Surgical History (Reviewed 05/02/24 @ 09:48 by Temitope Campuzano STUDIO OPERATION ENGINEER, STUDIO OPERATION ENGINEER-C) S/P lumbar microdiscectomy Hx of dilation and curettage H/O lithotripsy ( 1995) History of oral surgery History of tubal ligation ( 2000) Hx of tonsillectomy Family History (Reviewed 05/02/24 @ 09:48 by Temitope Campuzano STUDIO OPERATION ENGINEER, STUDIO OPERATION ENGINEER-C) Mother Heart disease Hypertension CAD (coronary artery disease) Atrial fibrillation Grandfather Heart disease Brother Myocardial infarction Sister Skin cancer Other Sleep apnea Social History adopted: No household members: family housing: house number of children: 1 current occupational status: employed 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 Patient states that she started with urinary symptoms last evening leading into this morning. Patient notes a history of recurrent UTIs in the past with two episodes in the past 3 months which required antibiotic treatment. Patient notes current symptoms of urinary urgency, frequency, dysuria, and abdominal discomfort. Patient is currently taking AZO for treatment of dysuria. ROS Const Constitutional: No body ache, chills, fatigue or fever(s) Gastro GI: Positive for abdominal pain; No change in bowel habits, diarrhea or vomiting Genitourinary-Female: Positive for painful urination, urinary frequency, urinary urgency, blood in urine and suprapubic fullness Endo Endocrine: No fatigue Exam Const General: healthy appearing and no acute distress GI Palpation: soft, no guarding and nontender Other: No CVA tenderness bilaterally Results POC Urinalysis Dip (Clinic) Office Urine Color Red Last Edit by Alcira Purdy MA on 09/28/24 08:32 Office Urine Clarity Cloudy Last Edit by Alcira Purdy MA on 09/13 (more content not included)... Normal [facility] Bacteria Ur Culton 5 Bacteria identified Cx Nom (U) ORGANISM ID: 1 >=100,000 CFU/ml Escherichia coli ORGANISM ID: 1 (ESCHERICHIA COLI) -- ANTIBIOTIC INTERPRETATION KIM STATUS REFERENCE RANGE -- Ampicillin R >=32 F Susceptible <=8 , Intermediate >8 , Resistant >16 Cefazolin S <=4 F Susceptible 0-16 , Intermediate <0 or >16 , Resistant >16 For uncomplicated urinary tract infections, cefazolin results can be used to predict susceptibility or resistance to cephalexin. Ceftriaxone S <=1 F Susceptible <=1 , Intermediate >1 , Resistant >=4 Cefepime S <=1 F Susceptible <=2 , Susceptible-Dose Dependent >2 , Resistant >=16 Ertapenem S <=0.5 F Susceptible <=0.5 , Intermediate >.5 , Resistant >1 Meropenem S <=0.25 F Susceptible <=1 , Intermediate >1 , Resistant >2 Ampicillin/Sulbact I 16 F Susceptible <=8 , Intermediate >8 , Resistant >16 Piperacillin/Tazobac S <=4 F Susceptible <16 , Susceptible-Dose Dependent >=16 , Resistant >=32 Gentamicin S <=1 F Susceptible <=2 , Intermediate >2 , Resistant >=8 Tobramycin S <=1 F Susceptible <4 , Intermediate >=4 , Resistant >=8 Trimeth sulfameth S <=20 F Susceptible <=40 , Resistant >40 Ciprofloxacin S <=0.25 F Susceptible <0.5 , Intermediate >=.5 , Resistant >=1 Nitrofurantoin S <=16 F Susceptible <=32 , Intermediate >32 , Resistant >[address] [facility] Comment on above: Performed By: #### 6 30-4 #### [facility] CLIA [id number] STATES OF [facility] CNOVon 09-12-2024 CNOV Office Visit ([facility]) PRISCILA YAP ([id number]) 1975 F Date Time Provider Department 09/12/24 5:30 PM KENNY SAMANO During your visit today, we recorded the following information about you: Temperature Pulse Respiration Blood pressure 97.9 degrees 67/minute 18/minute 109/68 Weight 79.6 kg Kenny Samano, SHAR.LAUNCHING PAD MECHANIC 09/12/2024 5:48 PM Signed [facility] Juan Luis Renaece Yap is a 49 year old female. Patient presents with: UTI: Burning, bladder spasms x today HPI Nontoxic-appearing 49-year-old female presents urgent care chief plaint possible UTI. Duration of symptoms today. Associated symptoms bladder spasms dysuria and hematuria. History of UTI last UTI in July of this year. Presents today for evaluation. OTC medications Pyridium. Denies any vaginal discharge or itching. No flank pain vomiting or abdominal pain. No fevers. Past medical history prescription medications allergies reviewed. Review of Systems Constitutional: Negative for chills, fatigue and fever. Gastrointestinal: Negative for abdominal distention, abdominal pain, nausea, rectal pain and vomiting. Genitourinary: Positive for dysuria, frequency and hematuria. Negative for difficulty urinating, dyspareunia, flank pain, genital sores, urgency, vaginal bleeding, vaginal discharge and vaginal pain. Objective BP 109/68 Pulse 67 Temp 36.6 ?C (97.9 ?F) Resp 18 Wt 79.6 kg (175 lb 7.8 oz) LMP 11/23/2010 SpO2 98% Physical Exam Constitutional: Appearance: Normal appearance. HENT: Mouth/Throat: Mouth: Mucous membranes are moist. Cardiovascular: Rate and Rhythm: Normal rate. Pulmonary: Effort: Pulmonary effort is normal. Breath sounds: Normal breath sounds. Abdominal: Tenderness: There is no abdominal tenderness. There is no right CVA tenderness, left CVA tenderness, guarding or rebound. Neurological: Mental Status: She is alert. {ASSESSMENT/PLAN: 1. Burning with urination - ICD9: 788.1, ICD10: R30.0 - UA DIP, URINE (POC) - BACTERIAL CULTURE, URINE Urine dip invalid due to Pyridium use. Treat for acute cystitis due to patient's history of UTIs and symptoms. Placed on Macrobid. Successfully taken this in the past. Patient was educated on supportive therapies. Patient will follow up with primary care provider as needed. Patient was instructed to immediately proceed to emergency room for any new, worsening, or symptoms lasting longer than anticipated. The patient's clinical presentation is otherwise unremarkable at this time. Based on exam and clinical finding, the patient is stable for discharge. Plan of care was discussed with patient. Patient verbalizes understanding and agrees to plan of care. This note was generated using [employer] software. It may contain errors in wording, punctuation, or spelling. Kenny Samano APRN.[facility] History and Record Review Clinical information obtained from an independent historian. History obtained from or confirmed by: parent. External record(s) reviewed: prior outpatient record. Disposition The patient was discharged. OTC Medications were advised: Procedures Allergies As of Date: 09/12/2024 (No Known Allergies) Date Reviewed: 09/12/2024 Reviewed by: Kenny Samano APRN.[facility] - Fully Assessed Reason for Visit: UTI [116] Cmt: Burning, bladder spasms x today Primary Visit Diagnosis:Burning with urination [R30.0] Order(s):UA DIP, URINE (POC) [2077305] Order #: [id number]. #:[id number] BACTERIAL CULTURE, URINE [SQURCUL] Order #: [id number]. #:[id number] nitrofurantoin monohydrate and macrocrystal (MACROBID) 100 mg capsuleTake 1 capsule by mouth two times a day for 5 days.Disp: 10 capsuleRfl: 0 Prescriptions as of 09/12/2024 - metoprolol succinate ER (TOPROL XL) 25 mg 24 hr tablet Take 25 mg by mouth once daily. - lisinopril-hydroCHLORO thiazide (ZESTORETIC) 10-12.5 mg per tablet Take 1 tablet by mouth once daily. - LINZESS 145 mcg capsule Take 145 mcg by mouth once daily. - levothyroxine (SYNTHROID) 75 mcg tablet Take 75 mcg by mouth once daily. - atorvastatin (LIPITOR) 20 mg tablet Take 20 mg by mouth once daily. - nitrofurantoin monohydrate and macrocrystal (MACROBID) 100 mg capsule Take 1 capsule by mouth two times a day for 5 days. - citalopram hydrobromide (CELEXA) 10 mg ORAL tablet Take 1 tablet by mouth once daily. - vitamin b complex(B COMPLEX-VITAMIN B12 TAB) one tablet daily - CITRACAL + D 250 MG-62.5 UNIT TAB - DAILY MULTIPLE TAB - FOLIC ACID 1 MG TAB Take one (1) tablet daily. Problem List As Of Date 09/12/2024 Noted Resolved Dysmenorrhea [N94.6] 07/30/2009 Dyspareunia [CGE6429] 07/30/2009 Premenstrual tension syndromes [N94.3] 12/06/2010 Prescriptions ordered this encounter Disp Refills Start End NITROFURANTOIN MONOHYDRATE AND MACROCR* 10 c* (more content not included)... Normal [facility] UA DIP, URINE (POC)on 2024 BILIRUBIN UA (POCT) Negative Negative [facility] CLARITY UA (POCT) Cloudy [facility] COLOR UA (POCT) [place] [facility] GLUCOSE UA (POCT) 100 mg/dL Abnormal Negative [facility] Hemoglobin Ql (U) Large Abnormal Negative [facility] Interpretation and review of laboratory results Abnormal [facility] KETONE UA (POCT) Negative Negative mg/dL [facility] LEUKOCYTES UA (POCT) Large Abnormal Negative [facility] NITRITE UA (POCT) Positive Abnormal Negative [facility] PH UA (POCT) 5.5 4.5 - 8.0 [facility] Protein Ql (U) 100 mg/dL Abnormal Negative [facility] SPECIFIC GRAVITY UA (POCT) <=1.005 Abnormal 1.005 - 1.030 [facility] UROBILINOGEN UA (POCT) 1 Taylor l E.U./dL [facility] Location:[facility] [place], [address], [place], [address] [facility] POINT OF CARE [facility] Urine Cultureon 07-16-2024 URC Culture exhibits no growth. Normal [facility] Comment on above: Performed By: #### M 100.2200 #### [facility] [address] [place], [place], [address] Urine cultureOrdered By: Scottie Luz on 07-15-2024 Bacteria identified Cx Nom (U) Culture exhibits no growth. [facility] - Chemistry and C hemistry - challengeOrdered By: Ricardo Luz on 07-14-2024 Bilirubin Ql (U) Moderate (2+) [facility] Glucose Ql (U) Negative [facility] Ketones Ql (U) Negative [facility] pH (U) 6.5 [pH] [facility] Specific gravity (U) [Rel density] 1.010 [facility] Urobilinogen (U) [Mass/Vol] Negative [facility] - Hematology and Cell countsOrdered By: Ricardo Luz on 07-14-2024 Hemoglobin Ql (U) Negative [facility] - Specimen inform ationOrdered By: Ricardo Luz on 07-14-2024 Clarity (U) Clear [facility] Color (U) [place] [facility] - UrinalysisOrder ed By: Ricardo Luz on 07-14-2024 Nitrite Ql (U) Positive [facility] Protein Ql (U) Negative [facility] No Panel InformationOrdered By: Ricardo Luz on 07-14-2024 Urine Leukocytes Positive [facility] Urine Non-Hemolyzed Blood Small [facility] Urgent Care Visit Reporton 0 07-14-2024 Urgent Care Visit Report [facility] [address], [address] [place], [place] [address] OFFICE VISIT Date of Service: 07/14/24 MR#: [id number] Acct: [id number] Name: PRISCILA YAP Rep #: [id number] : 1975 Provider: MEHUL meza Age/Sex: 49/F Location: [facility] Status: Signed Intake Vital Signs 05/02/24 08:25 07/14/24 08:21 Height 5 ft Weight: 174 lb BMI 34.0 BP 108/69 114/70 Blood Pressure Location Lt brachial Rt brachial Position Sitting Sitting Respiration 16 15 Pulse 68 67 Pulse Source Monitor NIBP Temp 97.7 F L 97.9 F Temp Source Oral Pulse Oximetry (%) 96 98 Oxygen Delivery Method room air room air Intake Visit Reasons: CONCERN FOR UTI Chief Complaint: dysuria Gas Line Repairer Required: No Is patient in pain?: No Allergies sertraline (From Zoloft) Adverse Reaction (Verified 07/14/24 08:21) Eye twitching Is last menstrual period known: No Post menopausal: Yes Patient : No Have you fallen in the past year?: No Nurse's Note: dysuria x 2 days. denies abd pain, back pain, fever. concern for UTI. taking pyridium since last night. [facility] Medical History (Reviewed 05/02/24 @ 09:48 by Temitope Campuzano STUDIO OPERATION ENGINEER, STUDIO OPERATION ENGINEER-C) History of IBS Hypothyroid Wears contact lenses Alcohol use Restless legs Migraine headache Heartburn Non-smoker Shortness of breath on exertion Leg cramps History of pain when walking Normal Holter exam History of echocardiogram History of stress test Cardiology follow-up encounter Essential hypertension HTN (hypertension) Pure hypercholesterolemia Nonrheumatic mitral (valve) prolapse Cardiac murmur Tachycardia IBS (irritable bowel syndrome) Thyroid disease RUQ pain Depression Surgical History S/P lumbar microdiscectomy Hx of dilation and curettage H/O lithotripsy ( 1995) History of oral surgery History of tubal ligation ( 2000) Hx of tonsillectomy Family History Mother Heart disease Hypertension CAD (coronary artery disease) Atrial fibrillation Grandfather Heart disease Brother Myocardial infarction Sister Skin cancer Other Sleep apnea Social History (Reviewed 05/02/24 @ 09:48 by Temitope Campuzano STUDIO OPERATION ENGINEER, STUDIO OPERATION ENGINEER-C) adopted: No household members: family housing: house number of children: 1 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 She denies abdominal pain, back pain, or fever. She does not taking Pyridium last night. She presents today for concerns regarding possible urinary tract infection. She underwent urine dip prior to evaluation that was positive for leukocyte esterase. She states her symptoms are worsening. ROS Const Constitutional: No body ache, chills, fatigue, fever(s) (no fever greater than 99.9 F), malaise, night sweats or other (rigors) Resp Respiratory: No shortness of breath Cardio Cardiology: No chest pain at rest or chest pain with exertion Gastro GI: No abdominal pain Genitourinary-Female: Positive for painful urination; No burning urination, urinary frequency, urinary urgency, blood in urine, suprapubic fullness or side pain Endo Endocrine: No fatigue Exam Const General: cooperative, healthy appearing, comfortable and no acute distress Orientation: alert, awake and oriented x3 Chest Chest palpation inspection: normal inspection of the chest Resp Effort Inspection: normal respiratory effort Auscultation: Bilateral: Clear to Auscultation Cardio Rhythm: other (Normal) Heart Sounds: S1 normal, S2 normal and no murmurs GI Inspection: normal to inspection and non-distended Auscultation: normal bowel sounds Palpation: soft and nontender General: No CVA tenderness Skin General: no rashes or lesions noted Results POC Urinalysis Dip (Clinic) Office Urine Color Chapman Last Edit by Ernestine Noonan on 07/14/24 08:28 Office Urine Clarity Clear Last Edit by Ernestine Noonan on 07/14/24 08:28 Office Urine Glucose Negative Last Edit by Ernestine Noonan on 07/14/24 08:28 Office Urine Ketones Negative Last Edit by Ernestine Noonan on 07/14/24 08 (more content not included)... Normal [facility] Employee Profileon Cholesterol in LDL [Mass/Vol] 119 mg/dL Normal 0-130 [facility] Comment on above: Performed By: #### L 500.2900, L100.0200, L400.0100 #### [facility] [address] [place], [address] Absolute lymphocyte countOrd ered By: HEALTH ASSESSMENT on 05-06-2024 Lymphocytes Auto (Unsp spec) [#/Vol] 2.30 10*3/uL 0.83-4.51 [facility] Absolute neutrophil countOrd ered By: HEALTH ASSESSMENT on 05-06-2024 Neutrophils (Bld) [#/Vol] 4.4 10*3/uL 2.0-7.7 [facility] Absolute nucleated red blood cell countOrdered By: HEALTH ASSESSMENT on 05-06-2024 Nucleated RBC (Bld) [#/Vol] 0.00 10*3/uL 0-5 [facility] Anion gap in Serum or Plasma Ordered By: HEALTH ASSESSMENT on 05-06-2024 Anion gap [Moles/Vol] 14 mmol/L 5-15 [facility] BUN/creatinine ratioOrdered By: HEALTH ASSESSMENT on 05-06-2024 Urea nitrogen/Creatinine [Mass ratio] 24.2 mg/mg High 10-20 [facility] Bilirubin Test strip Ql (U)O rdered By: HEALTH ASSESSMENT on 05-06-2024 Bilirubin Ql (U) Negative Negative [facility] Bilirubin directOrdered By: HEALTH ASSESSMENT on 05-06-2024 Bilirubin.direct [Mass/Vol] 0.14 mg/dL 0.00-0.30 [facility] Bilirubin, totalOrdered By: HEALTH ASSESSMENT on 05-06-2024 Bilirubin [Mass/Vol] 0.38 mg/dL 0.00-1.30 [facility] CBC, Employeeon 05-06-2024 Absolute Lymph 2.30 X10 3/uL Normal 0.83-4.51 [facility] Comment on above: Performed By: #### L 500.2900, L100.0200, L400.0100 #### [facility] [address] [place], [address] Absolute Neut 4.4 X10 3/uL Normal 2.0-7.7 [facility] Comment on above: Performed By: #### L 500.2900, L100.0200, L400.0100 #### [facility] [address] [place], [address] Basophils/100 WBC (Bld) 1.2 % High 0-1 [facility] Comment on above: Performed By: #### L 500.2900, L100.0200, L400.0100 #### [facility] [address] [place], [address] Eosinophils/100 WBC (Bld) 7.2 % High 0-5 [facility] Comment on above: Performed By: #### L 500.2900, L100.0200, L400.0100 #### [facility] [address] [place], [address] Erythrocyte distribution width (RBC) [Ratio] 15.0 % High 11.6-14.6 [facility] Comment on above: Performed By: #### L 500.2900, L100.0200, L400.0100 #### [facility] [address] [place], [address] Hematocrit (Bld) [Volume fraction] 37.8 % Normal 37-47 [facility] Comment on above: Performed By: #### L 500.2900, L100.0200, L400.0100 #### [facility] [address] [place], [address] Hemoglobin (Bld) [Mass/Vol] 11.9 g/dL Low 12.0-15.0 [facility] Comment on above: Performed By: #### L 500.2900, L100.0200, L400.0100 #### [facility] [address] [place], [id number] Lymphocytes/100 WBC (Bld) 28.5 % Normal 19-41 [facility] Comment on above: Performed By: #### L 500.2900, L100.0200, L400.0100 #### [facility] [address] [place], [id number] MCH (RBC) [Entitic mass] 28.1 pg Normal 27.0-32.0 [facility] Comment on above: Performed By: #### L 500.2900, L100.0200, L400.0100 #### [facility] [address] [place], [id number] MCHC (RBC) [Mass/Vol] 31.5 g/dL Low 32-36 [facility] Comment on above: Performed By: #### L 500.2900, L100.0200, L400.0100 #### [facility] [address] [place], [id number] MCV (RBC) [Entitic vol] 89.2 fL Normal 81-99 [facility] Comment on above: Performed By: #### L 500.2900, L100.0200, L400.0100 #### [facility] [address] [place], [id number] Monocytes/100 WBC (Bld) 8.7 % Normal 0-10 [facility] Comment on above: Performed By: #### L 500.2900, L100.0200, L400.0100 #### [facility] [address] [place], [id number] Neutrophils/100 WBC (Bld) 54.2 % Normal 47-70 [facility] Comment on above: Performed By: #### L 500.2900, L100.0200, L400.0100 #### [facility] [address] [place], [address] NRBC # 0.00 10 3/uL Normal 0-5 [facility] Comment on above: Performed By: #### L 500.2900, L100.0200, L400.0100 #### [facility] [address] [place], [address] Nucleated RBC (Bld) [#/Vol] 0 10*3/uL Normal 0-5 [facility] Comment on above: Performed By: #### L 500.2900, L100.0200, L400.0100 #### [facility] [address] [place], [address] Platelet mean volume (Bld) [Entitic vol] 9.5 fL Normal 6.2-12.0 [facility] Comment on above: Performed By: #### L 500.2900, L100.0200, L400.0100 #### [facility] [address] [place], [address] Platelets (Bld) [#/Vol] 518 10*3/uL High 150-450 [facility] Comment on above: Performed By: #### L 500.2900, L100.0200, L400.0100 #### [facility] [address] [place], [address] RBC (Bld) [#/Vol] 4.24 10*6/uL Normal 4.2-5.4 [facility] Comment on above: Performed By: #### L 500.2900, L100.0200, L400.0100 #### [facility] [address] [place], [address] RDW SD 49.1 fl High 35.1-43.9 [facility] Comment on above: Performed By: #### L 500.2900, L100.0200, L400.0100 #### [facility] [address] [place], [address] WBC (Bld) [#/Vol] 8.1 10*3/uL Normal 4.4-11.0 [facility] Comment on above: Performed By: #### L 500.2900, L100.0200, L400.0100 #### [facility] [address] [place], [address] Calculated very low density lipoprotein (VLDL) cholesterol measurementOrdered By: HEALTH ASSESSMENT on 05-06-2024 Calculated very low density lipoprotein (VLDL) cholesterol measurement 43 mg/dL High 5-40 [facility] Carbon dioxide, total [Moles /volume] in Central venous bloodOrdered By: HEALTH ASSESSMENT on 05-06-2024 CO2 [Moles/Vol] 22.1 mmol/L 21.0-32.0 [facility] Chloride assayOrdered By: HE ALTH ASSESSMENT on 05-06-2024 Chloride [Moles/Vol] 98 mmol/L 98-108 [facility] Erythrocyte distribution wid th ratioOrdered By: HEALTH ASSESSMENT on 05-06-2024 Erythrocyte distribution width (RBC) [Ratio] 15.0 % High 11.6-14.6 [facility] Erythrocyte distribution wid th standard deviationOrdered By: HEALTH ASSESSMENT on 05-06-2024 Erythrocyte distribution width (RBC) [Ratio] 49.1 fl High 35.1-43.9 [facility] Glomerular filtration rate ( GFR) estimation/1.73 sq m using serum, plasma, or whole bOrdered By: HEALTH ASSESSMENT on 05-06-2024 GFR/1.73 sq M.predicted among non-blacks MDRD (S/P/Bld) [Vol rate/Area] 111 mL/min/{1.73_m2} >60 [facility] Comment on above: mL/min/1.73m2 CKD-EP I Creatinine Equation (2020) Hematocrit Auto (Bld) [Volum e fraction]Ordered By: HEALTH ASSESSMENT on 05-06-2024 Hematocrit (Bld) [Volume fraction] 37.8 % 37-47 [facility] Hemoglobin measurementOrdere d By: HEALTH ASSESSMENT on 05-06-2024 Hemoglobin (Bld) [Mass/Vol] 11.9 g/dL Low 12.0-15.0 [facility] Ketones Test strip Ql (U)Ord ered By: HEALTH ASSESSMENT on 05-06-2024 Ketones Ql (U) Negative Negative [facility] Laboratory - Chemistry and C hemistry - challengeOrdered By: HEALTH ASSESSMENT on 05-06-2024 AST [Catalytic activity/Vol] 28 U/L <32 [facility] Lactate dehydrogenase (LDH) measurementOrdered By: HEALTH ASSESSMENT on 05-06-2024 LDH [Catalytic activity/Vol] 149 U/L 84-246 [facility] Low density lipoprotein (LDL ) cholesterol measurementOrdered By: HEALTH ASSESSMENT on 05-06-2024 Cholesterol in LDL [Mass/Vol] 119 mg/dL 0-130 [facility] MCV (mean corpuscular volume ) determinationOrdered By: HEALTH ASSESSMENT on 05-06-2024 MCV (RBC) [Entitic vol] 89.2 fL 81-99 [facility] Mean corpuscular hemoglobin (MCH) determinationOrdered By: HEALTH ASSESSMENT on 05-06-2024 MCH (RBC) [Entitic mass] 28.1 pg 27.0-32.0 [facility] Mean corpuscular hemoglobin concentration (MCHC) determinationOrdered By: HEALTH ASSESSMENT on 05-06-2024 MCHC (RBC) [Mass/Vol] 31.5 g/dL Low 32-36 [facility] Mean platelet volume determi nationOrdered By: HEALTH ASSESSMENT on 05-06-2024 Platelet mean volume (Bld) [Entitic vol] 9.5 fL 6.2-12.0 [facility] Neutrophil percentageOrdered By: HEALTH ASSESSMENT on 05-06-2024 Neutrophils/100 WBC (Bld) 54.2 % 47-70 [facility] Nitrite Test strip Ql (U)Ord ered By: HEALTH ASSESSMENT on 05-06-2024 Nitrite Ql (U) Negative Negative [facility] Nucleated red blood cell per centageOrdered By: HEALTH ASSESSMENT on 05-06-2024 Nucleated RBC/100 WBC (Bld) [Ratio] 0 % 0-5 [facility] Platelet countOrdered By: HE ALTH ASSESSMENT on 05-06-2024 Platelets (Bld) [#/Vol] 518 10*3/uL High 150-450 [facility] Potassium measurement (mass/ volume)Ordered By: HEALTH ASSESSMENT on 05-06-2024 Potassium (Unsp spec) [Mass/Vol] 4.4 mmol/L 3.3-5.1 [facility] Protein Test strip Ql (U)Ord ered By: HEALTH ASSESSMENT on 05-06-2024 Protein Ql (U) 15 mg/dl High Negative [facility] RBC Auto (Bld) [#/Vol]Ordere d By: HEALTH ASSESSMENT on 05-06-2024 RBC (Bld) [#/Vol] 4.24 10*6/uL 4.2-5.4 [facility] Screening total cholesterol/ high density lipoprotein (HDL) cholesterol ratioOrdered By: HEALTH ASSESSMENT on 05-06-2024 Cholesterol.total/Chol esterol in HDL [Mass ratio] 4.27 {ratio} [facility] Serum creatinine measurement (mass/volume)Ordered By: HEALTH ASSESSMENT on 05-06-2024 Creatinine [Mass/Vol] 0.56 mg/dL Low 0.70-1.20 [facility] Serum globulin measurementOr dered By: HEALTH ASSESSMENT on 05-06-2024 Globulin (S) [Mass/Vol] 2.6 g/dL 2.2-4.2 [facility] Serum glucose measurement (m ass/volume)Ordered By: HEALTH ASSESSMENT on 05-06-2024 Glucose [Mass/Vol] 99 mg/dL 70-99 [facility] Serum or plasma alanine gramajo otransferase (ALT) measurementOrdered By: HEALTH ASSESSMENT on 05-06-2024 ALT [Catalytic activity/Vol] 28 U/L <35 [facility] Serum or plasma albumin yana urement (mass/volume)Ordered By: HEALTH ASSESSMENT on 05-06-2024 Albumin [Mass/Vol] 4.4 g/dL 3.5-5.0 [facility] Serum or plasma albumin/glob ulin mass ratioOrdered By: HEALTH ASSESSMENT on 05-06-2024 Albumin/Globulin [Mass ratio] 1.7 {ratio} 0.9-2.4 [facility] Serum or plasma alkaline marya sphatase measurementOrdered By: HEALTH ASSESSMENT on 05-06-2024 ALP [Catalytic activity/Vol] 83 U/L 35-104 [facility] Serum or plasma calcium yana urement (mass/volume)Ordered By: HEALTH ASSESSMENT on 05-06-2024 Calcium [Mass/Vol] 9.6 mg/dL 7.6-11.0 [facility] Serum or plasma cholesterol in HDL measurement (mass/volume)Ordered By: HEALTH ASSESSMENT on 05-06-2024 Cholesterol in HDL [Mass/Vol] 49 mg/dL >40 [facility] Comment on above: National Cholesterol Education Program (NCEP) guidelines:<40 mg/dL: Low HDL-cholesterol (major risk factor for CHD)>= 60 mg/dL: High HDL-cholesterol (negative risk factor for CHD)HDL-cholesterol is affected by a number of factors, e.g. smoking, exercise, hormones, sex and age. Serum or plasma cholesterol measurement (mass/volume)Ordered By: HEALTH ASSESSMENT on 05-06-2024 Cholesterol [Mass/Vol] 211 mg/dL High <201 [facility] Comment on above: Cholesterol level, D esirable <200 mg/dLBorderline high cholesterol 200-239 mg/dLHigh cholesterol >=240 mg/dLRecommendations of the NCEP Adult Treatment Panel for the following risk-cutoff thresholds for the [place] population. Serum or plasma urea nitroge n measurement (mass/volume)Ordered By: HEALTH ASSESSMENT on 05-06-2024 Urea nitrogen [Mass/Vol] 14 mg/dL 4-19 [facility] Serum or plasma uric acid me asurement (mass/volume)Ordered By: HEALTH ASSESSMENT on 05-06-2024 Urate [Mass/Vol] 6.8 mg/dL High 2.6-6.0 [facility] Comment on above: The drugs N-Acetylcy steine and Metamizole may falsely depress this assay. Sodium levelOrdered By: HEAL ASSESSMENT on 05-06-2024 Sodium [Moles/Vol] 134 mmol/L 133-145 [facility] Total proteinOrdered By: [place] [facility] ASSESSMENT on 05-06-2024 Protein [Mass/Vol] 7.0 g/dL 5.9-8.4 [facility] Triglycerides measurementOrd ered By: HEALTH ASSESSMENT on 05-06-2024 Triglyceride [Mass/Vol] 216 mg/dL High <199 [facility] Comment on above: The drugs N-Acetylcy steine and Metamizole may falsely depress this assay. Normal range: <150 mg/dLBorderline High: 150-199 mg/dLHigh: 200-499 mg/dLVery High: >500 mg/dL Urinalysis, Employeeon 05-06 BILIRUBIN URINE Negative Normal Negative [facility] Comment on above: Order Comment: Urine , Random Performed By: #### L 500.2900, L100.0200, L400.0100 #### [facility] [address] [place], [address] Clarity (U) Sl. Cloudy Normal Clear [facility] Comment on above: Order Comment: Urine , Random Performed By: #### L 500.2900, L100.0200, L400.0100 #### [facility] [address] [place], [address] Color (U) Straw Normal Yellow [facility] Comment on above: Order Comment: Urine , Random Performed By: #### L 500.2900, L100.0200, L400.0100 #### [facility] [address] [place], [address] GLUCOSE, UR Normal Normal Normal [facility] Comment on above: Order Comment: Urine , Random Performed By: #### L 500.2900, L100.0200, L400.0100 #### [facility] [address] [place], [address] KETONE UR Negative Normal Negative [facility] Comment on above: Order Comment: Urine , Random Performed By: #### L 500.2900, L100.0200, L400.0100 #### [facility] [address] [place], [address] LEUK ESTERASE Negative Normal Negative [facility] Comment on above: Order Comment: Urine , Random Performed By: #### L 500.2900, L100.0200, L400.0100 #### [facility] [address] [place], [address] Nitrite Ql (U) Negative Normal Negative [facility] Comment on above: Order Comment: Urine , Random Performed By: #### L 500.2900, L100.0200, L400.0100 #### [facility] [address] [place], [address] OCCULT BLOOD-UR 25 /ul Abnormal Negative [facility] Comment on above: Order Comment: Urine , Random Performed By: #### L 500.2900, L100.0200, L400.0100 #### [facility] [address] [place], [address] pH UR 7.0 Normal 5.0 - 8.0 [facility] Comment on above: Order Comment: Urine , Random Performed By: #### L 500.2900, L100.0200, L400.0100 #### [facility] [address] [place], [address] PROT DIPSTX 15 mg/dl Abnormal Negative [facility] Comment on above: Order Comment: Urine , Random Performed By: #### L 500.2900, L100.0200, L400.0100 #### [facility] [address] [place], [address] SP.GR. DIPSTX 1.030 Normal 1.002-1.030 [facility] Comment on above: Order Comment: Urine , Random Performed By: #### L 500.2900, L100.0200, L400.0100 #### [facility] [address] [place], [address] UROBILI Normal Normal Normal [facility] Comment on above: Order Comment: Urine , Random Performed By: #### L 500.2900, L100.0200, L400.0100 #### [facility] [address] [place], [address] Urine clarityOrdered By: HEA LTH ASSESSMENT on 05-06-2024 Clarity (U) Sl. Cloudy Clear [facility] Urine color determinationOrd ered By: HEALTH ASSESSMENT on 05-06-2024 Color (U) Straw Yellow [facility] Urine glucose detectionOrder ed By: HEALTH ASSESSMENT on 05-06-2024 Glucose Ql (U) Normal mg/dl Normal [facility] Urine leukocyte esterase det ection by dipstickOrdered By: HEALTH ASSESSMENT on 05-06-2024 Leukocyte esterase Test strip Ql (U) Negative Negative [facility] Urine pHOrdered By: HEALTH A SSESSMENT on 05-06-2024 pH (U) 7.0 [pH] 5.0 - 8.0 [facility] Urine specific gravity measu rementOrdered By: HEALTH ASSESSMENT on 05-06-2024 Specific gravity (U) [Rel density] 1.030 1.002-1.030 [facility] Urine urobilinogen measureme ntOrdered By: HEALTH ASSESSMENT on 05-06-2024 Urobilinogen Ql (U) Normal mg/dl Normal [facility] White blood cell (WBC) count Ordered By: HEALTH ASSESSMENT on 05-06-2024 WBC (Bld) [#/Vol] 8.1 10*3/uL 4.4-11.0 [facility] Pulmonary Visit Reporton Pulmonary Visit Report [facility] [address] [place] [address] OFFICE VISIT Date of Service: 05/02/24 MR#: [id number] Acct: [id number] Name: PRISCILA YAP Rep #: [id number] : 1975 Provider: MEHUL Campuzano Age/Sex: 49/F Location: [facility] [place] Status: Signed Assessment and Plan Assessment and Plan (1) POLO (obstructive sleep apnea): Status: Chronic Comment: AHI 12.5 Plan: Stable, she is using and benefiting from Pap therapy. No indication for titration study at this time. Contact the office for any new or worsening symptoms in the meantime. Follow-up in 1 year. (2) Obesity (BMI 30.0-34.9): Status: Chronic Plan: Complicates exam, plan, care and prognosis. Continue to encourage healthy weight loss. (3) Nasal congestion: Status: Acute Plan: Complicates exam, plan, care and prognosis. This is causing the patient and inability to tolerate her PAP therapy. I have suggested that she use gimo-hhp-piomlnj fluticasone nasal spray 1 to 2 sprays each nostril 1 hour before bedtime on nights that she is feeling stuffy. She conveys understanding and is agreeable with this plan. I have also asked her to contact the office if this does not improve her symptoms and we can evaluate an alternative. Plan Details Follow Up: 1 Year HPI 1 Y FU Chief Complaint: Sleep apnea HPI Comments Details: This patient presents to the office today for routine follow-up of her obstructive sleep apnea. She is ambulatory. She has not recently been seen in the ED or urgent care for any respiratory illness. She has not required any antibiotics or prednisone for any breathing problems. If you recall, she is a lifelong never smoker. She denies any shortness of breath. She denies any wheezing, chest tightness, chest pain or palpitations. She also denies any fever, chills or body aches. She has not had any cough, sputum production or hemoptysis. She wakes feeling rested refreshed with the use of her PAP device on the nights she is able to use it. She admits that recently she has been having significant nasal congestion and is not able to tolerate her PAP machine. When she is using it, she denies any difficulty with dry mouth or mask leaks. She is not experiencing morning headaches. She does not require naps and is not nodding off to sleep unintentionally. She has tried crgn-mse-hwjnejv saline nasal spray for the nasal congestion, however it did not help. Compliance report for the past 30 days shows 53% compliance with an average use of 6 hours and 8 minutes on nights being used. Current setting is CPAP 6 cmH2O with residual AHI 0.5 events per hour. Leaks do not appear to be problematic. 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 Required: No DME Vendor: Brooke Accompanied by: Self Is patient in pain?: No Allergies sertraline (From Zoloft) Adverse Reaction (Verified 05/02/24 09:42) Eye twitching Medications ???Medication ???Instructions ???Recorded ???Confirmed ???Type linaclotide 145 mcg capsule 145 mcg PO DAILY 07/27/18 05/02/24 History metoprolol succinate 25 mg 25 mg PO DAILY #90 tabs 07/13/21 0 05/02/24 Rx tablet,extended release 24 hr levothyroxine 75 mcg tablet 75 mcg PO DAILY 10/15/21 05/02/24 History calcium lactate 100 mg PO DAILY 03/21/23 05/02/24 History cyanocobalamin (vitamin B-12) 1,000 mcg PO DAILY 03/21/23 History 1,000 mcg capsule multivitamin 1 tab PO DAILY 03/21/23 05/02/24 H istory atorvastatin 20 mg tablet 20 mg PO QHS #90 tabs 03/04/24 Rx lisinopril 10 1 tab PO DAILY #90 tabs 04/18/24 0 05/02/24 Rx mg-hydrochlorothiazide 12.5 mg tablet citalopram 20 mg tablet 20 mg PO QDAY 05/02/24 05/02/24 Hi story [facility] Medical History (Reviewed 05/02/24 @ 09:48 by Temitope Campuzano STUDIO OPERATION ENGINEER, STUDIO OPERATION ENGINEER-C) History of IBS Hypothyroid Wears contact lenses Alcohol use Restless legs Migraine headache Heartburn Non-smoker Shortness of breath on exertion Leg cramps History of pain when walking Normal Holter exam History of echocardiogram History of stress test Cardiology follow-up encounter Essential hypertension HTN (hypertension) Pure hypercholesterolemia Nonrheumatic mitral (valve) prolapse Cardiac murmur Tachycardia IBS (irritable bowel syndrome) Thyroid disease RUQ pain Depression Surgical History (Reviewed 05/02/24 @ 09:48 by Temitope Campuzano STUDIO OPERATION ENGINEER, STUDIO OPERATION ENGINEER-C) S/P lumbar (more content not included)... Normal [facility] Breast imaging reportOrdered By: Kedar Hernandez on 04-19-2024 Study report [facility] Services [address] [place], [place] [address] SCRN MAMM (CAD)W/REILLY BILAT MR#: [id number] Acct: [id number] Name: PRISCILA YAP Rep #: [id number] : 1975 F 49 From: Will Hernandez MD PCP: Dr. Royce Niño MD Status: REG CLI Study:SCRN MAMM (CAD)W/REILLY BILAT Date of Exa m: 04/19/24 Exam# [id number] Ordering Dr: Kallie Chisholm NP STUDIO OPERATION ENGINEER-C PROCEDURE: SCRN MAMM (CAD)W/REILLY BILAT REASON FOR EXAM: F, Age 49 y/o , . Routine mammographic follow-up. No family history. TECHNIQUE: Bilateral screening digital breast tomosynthesis with 2D and 3D images. Computeraided detection. COMPARISON: Prior exam(s) dating back to April 13, 2023.. FINDINGS: No suspicious masses, areas of developing architectural distortion, or suspicious calcifications. The breasts are extremely dense which lowers the sensitivity of mammography. Stable small bilateral axillary lymph nodes. BI/SCRN MAMM (CAD)W/REILLY BILAT IMPRESSION: BI-RADS 2: BENIGN. RECOMMEND ANNUAL MAMMOGRAPHIC SCREENING. Follow-up code: Routine Follow-up The patient will be notified of the results by letter. Reading Location: [id number] CC: STUDIO OPERATION ENGINEER-C Kallie Chisholm; Dr. Royce Niño MD ~ Livestock Laborer: Signed [facility] SCRN MAMM (CAD)W/REILLY BILATo n 04-19-2024 SCRN MAMM (CAD)W/REILLY BILAT [facility] Imaging Services [address] [place], [place] [address] SCRN MAMM (CAD)W/REILLY BILAT MR#: [id number] Acct: [id number] Name: PRISCILA YAP Rep #: [id number] : 1975 F 49 From: Kedar chino MD PCP: Dr. Royce Niño MD Status: REG CLI Study: SCRN MAMM (CAD)W/REILLY BILAT Date of Exam: 09/06 Exam# [id number] Ordering Dr: Kallie Chisholm NP STUDIO OPERATION ENGINEER -C PROCEDURE: SCRN MAMM (CAD)W/REILLY BILAT REASON FOR EXAM: F, Age 49 y/o , . Routine mammographic follow-up. No family history. TECHNIQUE: Bilateral screening digital breast tomosynthesis with 2D and 3D images. Computer aided detection. COMPARISON: Prior exam(s) dating back to April 13, 2023.. FINDINGS: No suspicious masses, areas of developing architectural distortion, or suspicious calcifications. The breasts are extremely dense which lowers the sensitivity of mammography. Stable small bilateral axillary lymph nodes. BI/SCRN MAMM (CAD)W/REILLY BILAT IMPRESSION: BI-RADS 2: BENIGN. RECOMMEND ANNUAL MAMMOGRAPHIC SCREENING. Follow-up code: Routine Follow-up The patient will be notified of the results by letter. Reading Location: [id number] CC: STUDIO OPERATION ENGINEER-C Kallie Chisholm; Dr. Royce Niño MD Livestock Laborer: Signed Normal [facility] PAP IG HPV APTIMA 16/18,45on 04-14-2024 ADEQ Comment Normal . [facility] Comment on above: Order Comment: Speci men Comment: [id number] Specimen Comment: Source.............Cervix Specimen Comment: Other..............Post Menopausal Specimen Comment: No. of containers..01 ThinPrep Vial Result Comment: Sati sfactory for evaluation. No endocervical component is identified. Performed By: #### L 7400.0280 #### [facility] [address] [place], [address] COMM . Normal . [facility] Comment on above: Order Comment: Speci men Comment: [id number] Specimen Comment: Source.............Cervix Specimen Comment: Other..............Post Menopausal Specimen Comment: No. of containers..01 ThinPrep Vial Performed By: #### L 7400.0280 #### [facility] [address] [place], [place], [id number] COMMENT Comment Normal . [facility] Comment on above: Order Comment: Speci men Comment: [id number] Specimen Comment: Source.............Cervix Specimen Comment: Other..............Post Menopausal Specimen Comment: No. of containers..01 ThinPrep Vial Result Comment: This liquid based ThinPrep(R) pap test was screened with the use of an image guided system. Performed By: #### L 7400.0280 #### [facility] [address] [place], [place], [address] DIAG Comment Normal . [facility] Comment on above: Order Comment: Speci men Comment: [id number] Specimen Comment: Source.............Cervix Specimen Comment: Other..............Post Menopausal Specimen Comment: No. of containers..01 ThinPrep Vial Result Comment: NEGA TIVE FOR INTRAEPITHELIAL LESION OR MALIGNANCY. Performed By: #### L 7400.0280 #### [facility] [address] [place], [place], [address] HPV APTIMA, HR Negative Normal Negative [facility] Comment on above: Order Comment: Speci men Comment: [id number] Specimen Comment: Source.............Cervix Specimen Comment: Other..............Post Menopausal Specimen Comment: No. of containers..01 ThinPrep Vial Result Comment: This nucleic acid amplification test detects fourteen high- risk HPV types (16,18,31,33,35,39,45,51,52,56,58,59,66,68) without differentiation. Performed By: #### L 7400.0280 #### [facility] [address] [place], [address] HPV Fide Rfx Comment Normal . [facility] Comment on above: Order Comment: Speci men Comment: [id number] Specimen Comment: Source.............Cervix Specimen Comment: Other..............Post Menopausal Specimen Comment: No. of containers..01 ThinPrep Vial Result Comment: Crit eria not met, HPV Genotype not performed. Performed at: - [address] [id number] Ed Transporter: Mayra Ta MD, Phone: [phone] Performed at: = - [facility] [id number] Ed Transporter: Mayra Ta MD, Phone: [phone] Performed By: #### L 7400.0280 #### [facility] [address] [place], [address] PAPSMR Comment Normal . [facility] Comment on above: Order Comment: Speci men Comment: [id number] Specimen Comment: Source.............Cervix Specimen Comment: Other..............Post Menopausal Specimen Comment: No. of containers..01 ThinPrep Vial Result Comment: The Pap smear is a screening test designed to aid in the detection of premalignant and malignant conditions of the uterine cervix. It is not a diagnostic procedure and should not be used as the sole means of detecting cervical cancer. Both false-positive and false-negative reports do occur. Performed By: #### L 7400.0280 #### [facility] [address] [place], [place], [address] PERFORM Comment Normal . [facility] Comment on above: Order Comment: Speci men Comment: [id number] Specimen Comment: Source.............Cervix Specimen Comment: Other..............Post Menopausal Specimen Comment: No. of containers..01 ThinPrep Vial Result Comment: Madhu Lofton Venture Capitalist Performed By: #### L 7400.0280 #### [facility] [address] [place], [place], [address] Cervical or vaginal specimen microscopic examination by liquid based cytology (reportOrdered By: Kallie Chisholm on 04-09-2024 Cytology report Cyto stain.thin prep Doc (Cvx/Vag) Comment . [facility] Comment on above: Criteria not met, HP V Genotype not performed.Performed at: - [address] [id number] Director: Mayra Ta MD, Phone: [phone] at: =[facility] [id number] Director: Mayra Ta MD, Phone: [phone] Cervical or vagninal specime n microscopic examination by cytology stain (reported asOrdered By: Kallie Chisholm on 04-09-2024 Cytology report Cyto stain Doc (Cvx/Vag) Comment . [facility] Comment on above: The Pap smear is a s creening test designed to aid in thedetection of premalignant and malignant conditions of theuterine cervix. It is not a diagnostic procedure andshould not be used as the sole means of detecting cervicalcancer. Both false-positive and false-negative reports dooccur. Anhydrous Ammonia Production Supervisor Cyto stain Nom (C vx/Vag) [ID]Ordered By: Kallie Chisholm on 04-09-2024 Pap Smear Performed By Comment . [facility] Comment on above: Samla Lofton Cyto technologist Cytology report Cyto stain D oc (Cvx/Vag)Ordered By: Kallie Chisholm on 04-09-2024 Thin Prep Pap Smear Comment . [facility] Comment on above: The Pap smear is a s creening test designed to aid in thedetection of premalignant and malignant conditions of theuterine cervix. It is not a diagnostic procedure andshould not be used as the sole means of detecting cervicalcancer. Both false-positive and false-negative reports dooccur. Cytology report Cyto stain.t hin prep Doc (Cvx/Vag)Ordered By: Kallie Chisholm on 04-09-2024 HPV Genotype Special Info Comment . [facility] Comment on above: Criteria not met, HP V Genotype not performed.Performed at: [facility] - [facility] [id number] Director: Mayra Ta MD, Phone: [phone] at: =[facility] - [facility] [address], [place] [id number] Director: Mayra Ta MD, Phone: [phone] Detection in cervical specim en of any of human papilloma virus (HPV) 16, 18, 31, 33,Ordered By: Kallie Chisholm on 04-09-2024 HPV 16+18+31+33+35+39+45+5 1+52+56+58+59+66+68 DNA Probe+sig amp Ql (Cvx) Negative Negative [facility] Comment on above: This nucleic acid am plification test detects fourteen high- risk HPV types (16,18,31,33,35,39,45,51,52,56,58,59,66,68)without differentiation. HPV 16+18+31+33+35+39+45+51+ 52+56+58+59+66+68 DNA Probe+sig amp Ql (Cvx)Ordered By: Kallie Chisholm on 04-09-2024 Human Papillomavirus High Risk Negative Negative [facility] Comment on above: This nucleic acid am plification test detects fourteen high- risk HPV types (16,18,31,33,35,39,45,51,52,56,58,59,66,68)without differentiation. Image-guided ThinPrep PapOrd ered By: Kallie Chisholm on 04-09-2024 Pap Smear Note Comment . [facility] Comment on above: This liquid based Th inPrep(R) pap test was screened withthe use of an image guided system. Image-guided liquid-based Pa pOrdered By: Kallie Chisholm on 04-09-2024 Pap Smear Diagnosis Comment . [facility] Comment on above: NEGATIVE FOR INTRAEP ITHELIAL LESION OR MALIGNANCY. Laboratory - CytologyOrdered By: Kallie Chisholm on 04-09-2024 Anhydrous Ammonia Production Supervisor Cyto stain Nom (Cvx/Vag) [ID] Comment . [facility] Comment on above: Salma Lofton Cyto technologist Laboratory - Miscellaneous t estsOrdered By: Kallie Chisholm on 04-09-2024 Service comment (Unsp spec) [Interp] . . [facility] No Panel InformationOrdered By: Kallie Chisholm on 04-09-2024 Pap Smear Specimen Adequacy Comment . [facility] Comment on above: Satisfactory for paresh luation. No endocervical component is identified. 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 Required: No Is patient in pain?: No Allergies sertraline (From Zoloft) Adverse Reaction (Verified 04/09/24 15:27) Eye twitching Medications ???Medication ???Instructions ???Recorded ???Confirmed ???Type linaclotide 145 mcg capsule 145 mcg PO DAILY 07/27/18 04/09/24 History metoprolol succinate 25 mg 25 mg PO DAILY #90 tabs 07/13/21 0 04/09/24 Rx tablet,extended release 24 hr levothyroxine 75 mcg tablet 75 mcg PO DAILY 10/15/21 04/09/24 History calcium lactate 100 mg PO DAILY 03/21/23 04/09/24 History cyanocobalamin (vitamin B-12) 1,000 mcg PO DAILY 03/21/23 History 1,000 mcg capsule multivitamin 1 tab PO DAILY 03/21/23 04/09/24 H istory lisinopril 10 1 tab PO DAILY #90 tabs 04/27/23 0 04/09/24 Rx mg-hydrochlorothiazide 12.5 mg tablet citalopram 40 mg tablet 40 mg PO DAILY #90 tabs 07/17/23 0 04/09/24 Rx atorvastatin 20 mg tablet 20 mg PO QHS #90 tabs 03/04/24 Rx Is last menstrual period known: No Post menopausal: Yes Patient : No : [facility] History History of IBS Hypothyroid Wears contact lenses Alcohol use Restless legs Migraine headache Heartburn Non-smoker Shortness of breath on exertion Leg cramps History of pain when walking Normal Holter exam History of echocardiogram History of stress test Cardiology follow-up encounter Essential hypertension HTN (hypertension) Pure hypercholesterolemia Nonrheumatic mitral (valve) prolapse Cardiac murmur Tachycardia IBS (irritable bowel syndrome) Thyroid disease RUQ pain Depression Surgical History S/P lumbar microdiscectomy Hx of dilation and curettage H/O lithotripsy ( 1995) History of oral surgery History of tubal ligation ( 2000) Hx of tonsillectomy Family History Mother Heart disease Hypertension CAD (coronary artery disease) Atrial fibrillation Grandfather Heart disease Brother Myocardial infarction Sister Skin cancer Other Sleep apnea Social History adopted: No household members: family housing: house number of children: 1 current occupational status: employed 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 Date Name GA/Weeks Outcome Route Bth Weight Gen Labor Lgth Anesthesia Del Locatn Provider FOB Unknown 1999- [place] HPI Encounter for routine gynecological examination Details: PRISCILA YAP is a 49 year old who presents for annual exam. Weaned off of citalopram but found that she was again feeling irritable, cried easily. Restarted it and taking just 20mg daily. States feels really well on this dosage. Does not need refills yet as is breaking 40mg tablets in half. Cyclic menses each month. Last PAP: 2019 History of abnormal PAP: no Last mammogram: 03/2023 History of abnormal mammogram: no Colon cancer screenin Other preventative health care screenings: [place] Female Reproductive History Cycle Length: 21- Questions: metorrhagia: No, sexually active: Yes, dyspareunia: No and PCB: No ROS Const Constitutional: Denies fatigue, weight gain or weight loss Cardio Card: Denies chest pain Resp Resp: Denies cough or dyspnea on exertion GI GI: Denies abdominal pain, bloating, change in stool character, constipation or vomiting : Reports as per HPI; Denies difficulty voiding, pelvic pain, urinary frequency, urinary incontinence, urinary urgency, vaginal discharge or vaginal pruritus Exam Const Genera (more content not included)... Normal [facility] Service comment (Unsp spec) [Interp]Ordered By: Kallie Chisholm on 04-09-2024 Pap Smear Comment (3) . . [facility] Free T3on 11-03-2023 Free T3 [Mass/Vol] 2.8 pg/mL Normal 2.18-3.98 [facility] Comment on above: Order Comment: Order Date: 10/26/23Order Info: 3051-0 - [id number] Info: [id number] - TSHOrder Info: [id number] - T4F Performed By: #### L 506.0400, [id number], [id number] ####[facility] [id number] [place], [address] T4 Free Directon 11-03-2023 T4 FREE DIRECT 1.02 ng/dL Normal 0.76-1.46 [facility] Comment on above: Order Comment: Order Date: 10/26/23Order Info: 305-0 - [id number] Info: [id number] - TSHOrder Info: [id number] - T4F Performed By: #### L 506.0400, [id number], L501.04956 ####[facility] [id number] [place], [place], [address] Thyroid Stim Hormone (TSH)on 11-03-2023 TSH 0.941 uIU/mL Normal 0.358-3.740 [facility] Comment on above: Order Comment: Order Date: 10/26/23Order Info: [id number] - [id number] Info: [id number] - TSHOrder Info: [id number] - T4F Performed By: #### L 506.0400, [id number], [id number] ####[facility] [id number] [place], [place], [id number] Absolute lymphocyte countOrd ered By: HEALTH ASSESSMENT on 02-27-2023 Lymphocytes Auto (Unsp spec) [#/Vol] 2.07 10*3/uL 0.83-4.51 [facility] Absolute reticulocyte countO rdered By: HEALTH ASSESSMENT on 02-27-2023 Reticulocytes (Bld) [#/Vol] 0.00 10*3/uL 0-5 [facility] Basophil percentageOrdered B y: HEALTH ASSESSMENT on 02-27-2023 Basophil percentage 3.1 mg/dL 2.5-4.9 [facility] Bilirubin [Mass/Vol] 0.40 mg/dL 0.20-1.00 [facility] Comment on above: For patients on eltr ombopag therapy, use of Dimension Sylvester TBIL is not recommended. Chloride [Moles/Vol] 103 mmol/L 98-107 [facility] Cholesterol [Mass/Vol] 185 mg/dL <200 [facility] Comment on above: <200 mg/dL Desirable 200-240 mg/dL Borderline >240 mg/dL High Risk Glucose [Mass/Vol] 93 mg/dL 74-106 [facility] LDH [Catalytic activity/Vol] 159 U/L 84-246 [facility] Neutrophils (Bld) [#/Vol] 3.9 10*3/uL 2.0-7.7 [facility] Potassium [Moles/Vol] 3.9 mmol/L 3.5-5.1 [facility] Protein [Mass/Vol] 6.8 g/dL 6.4-8.2 [facility] Sodium [Moles/Vol] 136 mmol/L 136-145 [facility] Triglyceride [Mass/Vol] 230 mg/dL <199 [facility] Comment on above: The drugs N-Acetylcy steine and Metamizole may falsely depress this assay.Serum Triglycerides Reference Interval Normal <150 mg/dL Borderline high 150 - 199 mg/dL High 200 - 499 mg/dL Very High > or = 500 mg/dL WBC (Bld) [#/Vol] 7.2 10*3/uL 4.4-11.0 [facility] Blood erythrocytes count (nu mber/volume)Ordered By: HEALTH ASSESSMENT on 02-27-2023 RBC (Bld) [#/Vol] 4.14 10*6/uL 4.2-5.4 [facility] Blood hemoglobin measurement (mass/volume)Ordered By: HEALTH ASSESSMENT on 02-27-2023 Hemoglobin (Bld) [Mass/Vol] 11.1 g/dL 12.0-15.0 [facility] Blood platelet mean volumeOr dered By: HEALTH ASSESSMENT on 02-27-2023 Platelet mean volume (Bld) [Entitic vol] 9.7 fL 6.2-12.0 [facility] Determination of erythrocyte mean corpuscular volume (MCV)Ordered By: HEALTH ASSESSMENT on 02-27-2023 MCV (RBC) [Entitic vol] 88.9 fL 81-99 [facility] Direct bilirubinOrdered By: HEALTH ASSESSMENT on 02-27-2023 Bilirubin.direct [Mass/Vol] 0.08 mg/dL 0.00-0.30 [facility] Hematocrit Auto (Bld) [Volum e fraction]Ordered By: HEALTH ASSESSMENT on 02-27-2023 Hematocrit (Bld) [Volume fraction] 36.8 % 37-47 [facility] Laboratory - Chemistry and C hemistry - challengeOrdered By: [facility] ASSESSMENT on 02-27-2023 ALP [Catalytic activity/Vol] 74 U/L 45-117 [facility] ALT [Catalytic activity/Vol] 43 U/L 13-56 [facility] Cholesterol.total/Chol esterol in HDL [Mass ratio] 3.70 {ratio} [facility] CO2 [Moles/Vol] 25.0 mmol/L 21.0-32.0 [facility] Globulin (S) [Mass/Vol] 3.1 g/dL 2.2-4.2 [facility] Urea nitrogen/Creatinine [Mass ratio] 30.9 mg/mg 10-20 [facility] Laboratory - Hematology and Cell countsOrdered By: HEALTH ASSESSMENT on 02-27-2023 Erythrocyte distribution width (RBC) [Entitic vol] 52.0 fL 35.1-43.9 [facility] Erythrocyte distribution width (RBC) [Ratio] 15.9 % 11.6-14.6 [facility] MCH (RBC) [Entitic mass] 26.8 pg 27.0-32.0 [facility] Nucleated RBC/100 WBC (Bld) [Ratio] 0 % 0-5 [facility] MCHC Auto (RBC) [Mass/Vol]Or dered By: HEALTH ASSESSMENT on 02-27-2023 MCHC (RBC) [Mass/Vol] 30.2 g/dL 32-36 [facility] No Panel InformationOrdered By: HEALTH ASSESSMENT on 02-27-2023 Estimated GFR (MDRD) Amer 133 mL/min >60 [facility] Comment on above: GFR Calc Estimated GFR (MDRD) Non-Af Amer 110 mL/min >60 [facility] Comment on above: Non- GFR Calc Platelets bldOrdered By: ESTEPHANIA LTH ASSESSMENT on 02-27-2023 Platelets (Bld) [#/Vol] 459 10*3/uL 150-450 [facility] Segmented neutrophils/100 WB C Auto (Bld)Ordered By: HEALTH ASSESSMENT on 02-27-2023 Segmented neutrophils/100 WBC (Bld) 54.2 % 47-70 [facility] Serum or plasma albumin yana urement (mass/volume)Ordered By: HEALTH ASSESSMENT on 02-27-2023 Albumin [Mass/Vol] 3.7 g/dL 3.2-5.0 [facility] Serum or plasma albumin/glob ulin mass ratioOrdered By: HEALTH ASSESSMENT on 02-27-2023 Albumin/Globulin [Mass ratio] 1.2 {ratio} 0.9-2.4 [facility] Serum or plasma calcium yana urement (mass/volume)Ordered By: HEALTH ASSESSMENT on 02-27-2023 Calcium [Mass/Vol] 8.9 mg/dL 8.5-10.1 [facility] Serum or plasma cholesterol in HDL measurement (mass/volume)Ordered By: HEALTH ASSESSMENT on 02-27-2023 Cholesterol in HDL [Mass/Vol] 50 mg/dL >40 [facility] Comment on above: The drugs N-Acetylcy steine and Metamizole may falsely depress this assay. Reference Range HDL <40 mg/dL Low HDL Cholesterol HDL >or= 60 mg/dL High HDL Cholesterol Serum or plasma cholesterol in VLDL measurement (mass/volume)Ordered By: HEALTH ASSESSMENT on 02-27-2023 Cholesterol in VLDL [Mass/Vol] 46 mg/dL 5-40 [facility] Serum or plasma creatinine m easurement (mass/volume)Ordered By: HEALTH ASSESSMENT on 02-27-2023 Creatinine [Mass/Vol] 0.62 mg/dL 0.55-1.02 [facility] Comment on above: The validity of the calculated GFR & GFRAA in patients over 70 years has not been determined. Clinical correlation is essential. Serum or plasma low density lipoprotein (LDL) cholesterol measurement (mass/volume)Ordered By: HEALTH ASSESSMENT on 02-27-2023 Cholesterol in LDL [Mass/Vol] 89 mg/dL 0-130 [facility] Serum or plasma urea nitroge n measurement (mass/volume)Ordered By: HEALTH ASSESSMENT on 02-27-2023 Urea nitrogen [Mass/Vol] 19 mg/dL 7-18 [facility] Serum or plasma uric acid me asurement (mass/volume)Ordered By: HEALTH ASSESSMENT on 02-27-2023 Urate [Mass/Vol] 4.3 mg/dL 2.6-6.0 [facility] Comment on above: The drugs N-Acetylcy steine and Metamizole may falsely depress this assay. Thin prep Papanicolaou smear with manual screeningOrdered By: HEALTH ASSESSMENT on 02-27-2023 Thin prep Papanicolaou smear with manual screening 23 U/L 15-37 [facility] Thin prep Papanicolaou smear with manual screening 8 5-15 [facility] Basophil percentageOrdered B y: Mando Niño on 11-23-2022 Basophil percentage 0-5 SEEN /hpf 0-5 [facility] Bilirubin Test strip Ql (U)O rdered By: Mando Niño on 11-23-2022 Bilirubin Ql (U) Negative Negative [facility] Culture, urineOrdered By: Wilber Niño on 11-23-2022 Bacteria identified Cx Nom (U) Positive [facility] Bacteria identified Cx Nom (U) Positive [facility] Ketones Test strip Ql (U)Ord ered By: Mando Niño on 11-23-2022 Ketones Ql (U) Negative Negative [facility] Mucus LM Ql (Urine sed)Order ed By: Mando Niño on 11-23-2022 Mucus Ql (Urine sed) 0 SEEN /hpf [facility] Nitrite Test strip Ql (U)Ord ered By: Mando Niño on 11-23-2022 Nitrite Ql (U) Negative Negative [facility] Protein Test strip Ql (U)Ord ered By: Mando Niño on 11-23-2022 Protein Ql (U) 15 mg/dl Negative [facility] Squamous epithelial cells de tection in urine sediment by light microscopyOrdered By: Mando Niño on 11-23-2022 Epithelial cells.squamous LM Ql (Urine sed) 0 SEEN /hpf 5-10 [facility] Urine blood detectionOrdered By: Mando Niño on 11-23-2022 RBC Ql (U) 50 /ul Negative [facility] RBC Ql (U) 0-5 SEEN /hpf 0-5 [facility] Urine clarityOrdered By: Ling Niño on 11-23-2022 Clarity (U) Sl. Cloudy Clear [facility] Urine color determinationOrd ered By: Mando Niño on 11-23-2022 Color (U) Yellow Yellow [facility] Urine glucose detectionOrder ed By: Mando Niño on 11-23-2022 Glucose Ql (U) Normal mg/dl Normal [facility] Urine leukocyte esterase det ection by dipstickOrdered By: Mando Niño on 11-23-2022 Leukocyte esterase Test strip Ql (U) 25 /ul Negative [facility] Urine pHOrdered By: Cain Niño on 11-23-2022 pH (U) 6.0 [pH] 5.0 - 8.0 [facility] Urine sediment bacteria coun t by microscopy (number/high power field)Ordered By: Mando Niño on 11-23-2022 Bacteria LM.HPF (Urine sed) [#/Area] 0 /[HPF] None Seen [facility] Urine specific gravity measu rementOrdered By: Mando Niño on 11-23-2022 Specific gravity (U) [Rel density] 1.020 1.002-1.030 [facility] Urobilinogen Auto test strip Ql (U)Ordered By: Mando Niño on 11-23-2022 Urobilinogen Ql (U) Normal mg/dl Normal [facility] Serum or plasma ferritin sunday surement (mass/volume)Ordered By: Dr. Niño on 04-26-2022 Ferritin [Mass/Vol] 19 ng/mL [facility] Iron measurement (mass/mass) Ordered By: Dr. Niño on 04-14-2022 Iron (Unsp spec) [Mass/Mass] 105 ug/dL 50-170 [facility] Iron measurement (mass/mass) Ordered By: Dr. Niño on 01-17-2022 Iron (Unsp spec) [Mass/Mass] 94 ug/dL 50-170 [facility] Laboratory - Chemistry and C hemistry - challengeOrdered By: Dr. Niño on 01-17-2022 Free T4 [Mass/Vol] 0.90 ng/dL 0.76-1.46 [facility] No Panel InformationOrdered By: Dr. Niño on 01-17-2022 Thyroid Stimulating Hormone (TSH) 0.87 uIU/mL 0.358-3.74 [facility] Serum or plasma ferritin sunday surement (mass/volume)Ordered By: Dr. Niño on 01-17-2022 Ferritin [Mass/Vol] 14 ng/mL 8-252 [facility] Absolute lymphocyte counton 10-27-2021 Lymphocytes Auto (Unsp spec) [#/Vol] 2.50 10*3/uL 0.83-4.51 [facility] Work Phone: Absolute reticulocyte counto n 10-27-2021 Reticulocytes (Bld) [#/Vol] 0.00 10*3/uL 0-5 [facility] Work Phone: Basophil percentageon 2021 Basophil percentage 3.0 mg/dL 2.5-4.9 [facility] Work Phone: Bilirubin [Mass/Vol] 0.30 mg/dL 0.20-1.00 [facility] Work Phone: Comment on above: For patients on eltr ombopag therapy, use of Dimension Sylvester TBIL is not recommended. Chloride [Moles/Vol] 104 mmol/L 98-107 [facility] Work Phone: Cholesterol [Mass/Vol] 176 mg/dL <200 [facility] Work Phone: Comment on above: <200 mg/dL Desirable 200-240 mg/dL Borderline >240 mg/dL High Risk Glucose [Mass/Vol] 104 mg/dL 74-106 [facility] Work Phone: Comment on above: Fasting Glucose resu lt from 100 to 125 mg/dL suggests IMPAIRED HOMEOSTASIS per A.D.A. criteria. Neutrophils (Bld) [#/Vol] 4.5 10*3/uL 2.0-7.7 [facility] Work Phone: Potassium [Moles/Vol] 4.0 mmol/L 3.5-5.1 [facility] Work Phone: Protein [Mass/Vol] 7.1 g/dL 6.4-8.2 [facility] Work Phone: Sodium [Moles/Vol] 137 mmol/L 136-145 [facility] Work Phone: Triglyceride [Mass/Vol] 186 mg/dL <199 [facility] Work Phone: Comment on above: The drugs N-Acetylcy steine and Metamizole may falsely depress this assay.Serum Triglycerides Reference Interval Normal <150 mg/dL Borderline high 150 - 199 mg/dL High 200 - 499 mg/dL Very High > or = 500 mg/dL WBC (Bld) [#/Vol] 8.1 10*3/uL 4.4-11.0 [facility] Work Phone: Blood erythrocytes count (nu mber/volume)on 10-27-2021 RBC (Bld) [#/Vol] 4.12 10*6/uL 4.2-5.4 [facility] Work Phone: Blood hemoglobin measurement (mass/volume)on 10-27-2021 Hemoglobin (Bld) [Mass/Vol] 12.2 g/dL 12.0-15.0 [facility] Work Phone: Blood platelet mean volumeon 10-27-2021 Platelet mean volume (Bld) [Entitic vol] 9.5 fL 6.2-12.0 [facility] Work Phone: Determination of erythrocyte mean corpuscular volume (MCV)on 10-27-2021 MCV (RBC) [Entitic vol] 92.5 fL 81-99 [facility] Work Phone: Direct bilirubinon 2 Bilirubin.direct [Mass/Vol] 0.05 mg/dL 0.00-0.30 [facility] Work Phone: Hematocrit Auto (Bld) [Volum e fraction]on 10-27-2021 Hematocrit (Bld) [Volume fraction] 38.1 % 37-47 [facility] Work Phone: Laboratory - Chemistry and C hemistry - challengeon 10-27-2021 ALP [Catalytic activity/Vol] 75 U/L 45-117 [facility] Work Phone: ALT [Catalytic activity/Vol] 34 U/L 13-56 [facility] Work Phone: Cholesterol.total/Chol esterol in HDL [Mass ratio] 3.60 {ratio} [facility] Work Phone: CO2 [Moles/Vol] 25.0 mmol/L 21.0-32.0 [facility] Work Phone: Globulin (S) [Mass/Vol] 3.5 g/dL 2.2-4.2 [facility] Work Phone: Urea nitrogen/Creatinine [Mass ratio] 22.3 mg/mg 10-20 [facility] Work Phone: Laboratory - Hematology and Cell countson 10-27-2021 Erythrocyte distribution width (RBC) [Entitic vol] 49.7 fL 35.1-43.9 [facility] Work Phone: Erythrocyte distribution width (RBC) [Ratio] 14.5 % 11.6-14.6 [facility] Work Phone: MCH (RBC) [Entitic mass] 29.6 pg 27.0-32.0 [facility] Work Phone: Nucleated RBC/100 WBC (Bld) [Ratio] 0 % 0-5 [facility] Work Phone: MCHC Auto (RBC) [Mass/Vol]on 10-27-2021 MCHC (RBC) [Mass/Vol] 32.0 g/dL 32-36 [facility] Work Phone: No Panel Informationon 10-27 Estimated GFR (MDRD) Amer 130 mL/min >60 [facility] Work Phone: Comment on above: GFR Calc Estimated GFR (MDRD) Non-Af Amer 108 mL/min >60 [facility] Work Phone: Comment on above: Non- GFR Calc Platelets bldon 10-27-2021 Platelets (Bld) [#/Vol] 460 10*3/uL 150-450 [facility] Work Phone: Segmented neutrophils/100 WB C Auto (Bld)on 10-27-2021 Segmented neutrophils/100 WBC (Bld) 55.2 % 47-70 [facility] Work Phone: Serum or plasma albumin yana urement (mass/volume)on 10-27-2021 Albumin [Mass/Vol] 3.6 g/dL 3.2-5.0 [facility] Work Phone: Serum or plasma albumin/glob ulin mass ratioon 10-27-2021 Albumin/Globulin [Mass ratio] 1.0 {ratio} 0.9-2.4 [facility] Work Phone: Serum or plasma calcium yana urement (mass/volume)on 10-27-2021 Calcium [Mass/Vol] 8.8 mg/dL 8.5-10.1 [facility] Work Phone: Serum or plasma cholesterol in HDL measurement (mass/volume)on 10-27-2021 Cholesterol in HDL [Mass/Vol] 49 mg/dL >40 [facility] Work Phone: Comment on above: The drugs N-Acetylcy steine and Metamizole may falsely depress this assay. Reference Range HDL <40 mg/dL Low HDL Cholesterol HDL >or= 60 mg/dL High HDL Cholesterol Serum or plasma cholesterol in VLDL measurement (mass/volume)on 10-27-2021 Cholesterol in VLDL [Mass/Vol] 37 mg/dL 5-40 [facility] Work Phone: Serum or plasma creatinine m easurement (mass/volume)on 10-27-2021 Creatinine [Mass/Vol] 0.63 mg/dL 0.55-1.02 [facility] Work Phone: Comment on above: The validity of the calculated GFR & GFRAA in patients over 70 years has not been determined. Clinical correlation is essential. Serum or plasma low density lipoprotein (LDL) cholesterol measurement (mass/volume)on 10-27-2021 Cholesterol in LDL [Mass/Vol] 90 mg/dL 0-130 [facility] Work Phone: Serum or plasma urea nitroge n measurement (mass/volume)on 10-27-2021 Urea nitrogen [Mass/Vol] 14 mg/dL 7-18 [facility] Work Phone: Serum or plasma uric acid me asurement (mass/volume)on 10-27-2021 Urate [Mass/Vol] 5.5 mg/dL 2.6-6.0 [facility] Work Phone: Comment on above: The drugs N-Acetylcy steine and Metamizole may falsely depress this assay. Thin prep Papanicolaou smear with manual screeningon 10-27-2021 Thin prep Papanicolaou smear with manual screening 24 U/L 15-37 [facility] Work Phone: Thin prep Papanicolaou smear with manual screening 8 5-15 [facility] Work Phone: Thin prep Papanicolaou smear with manual screening 155 U/L [id number] [facility] Work Phone: Bilirubin Test strip Ql (U)o n 09-15-2021 Bilirubin Ql (U) Negative Negative [facility] Work Phone: Ketones Test strip Ql (U)on 09-15-2021 Ketones Ql (U) Negative Negative [facility] Work Phone: Nitrite Test strip Ql (U)on 09-15-2021 Nitrite Ql (U) Positive Negative [facility] Work Phone: Protein Test strip Ql (U)on 09-15-2021 Protein Ql (U) Negative Negative [facility] Work Phone: Urine blood detectionon 08-0 RBC Ql (U) 10 /ul Negative [facility] Work Phone: Urine clarityon 09-15-2021 Clarity (U) Sl. Cloudy Clear [facility] Work Phone: Urine color determinationon 09-15-2021 Color (U) Yellow Yellow [facility] Work Phone: Urine glucose detectionon Glucose Ql (U) Normal mg/dl Normal [facility] Work Phone: Urine leukocyte esterase det ection by dipstickon 09-15-2021 Leukocyte esterase Test strip Ql (U) Negative Negative [facility] Work Phone: Urine pHon 09-15-2021 pH (U) 7.0 [pH] 5.0 - 8.0 [facility] Work Phone: Urine specific gravity measu rementon 09-15-2021 Specific gravity (U) [Rel density] 1.005 1.002-1.030 [facility] Work Phone: Urobilinogen Auto test strip Ql (U)on 09-15-2021 Urobilinogen Ql (U) Normal mg/dl Normal [facility] Work Phone: Microbiology: Culture, Urine on 08-20-2016 GE use only - for [employer] import when terms are not otherwise specified Trimethoprim/Sulfameth o $ <=20 S Invalid Interpretation Code [facility] Work Phone: Lab Report: Urinalysis, Rout ine (Dipstick)on 08-18-2016 Nitrite Urine Positive High Negative [facility] Work Phone: Occult Blood, urine 150 High Negative [facility] Work Phone: specific gravity, urine 1.005 Invalid Interpretation Code 1.002-1.030 [facility] Work Phone: Urine, bilirubin presence 3 High Negative [facility] Work Phone: Urine, clarity Sl. Cloudy Invalid Interpretation Code Clear [facility] Work Phone: Urine, color Falguni Invalid Interpretation Code Yellow [facility] Work Phone: Urine, glucose presence Normal mg/dl Invalid Interpretation Code Normal [facility] Work Phone: Urine, ketones presence Negative Invalid Interpretation Code Negative [facility] Work Phone: Urine, leukocyte esterase presence 100 High Negative [facility] Work Phone: Urine, pH 7.0 [pH] Invalid Interpretation Code 5.0 - 8.0 [facility] Work Phone: Urine, protein Negative Invalid Interpretation Code Negative [facility] Work Phone: urobilinogen, urine, by dipstick 4 mg/dL High Normal [facility] Work Phone: Office Visit: UC: Bladder In fectionon 08-18-2016 blood in urine (hemoglobin) by dipstick 2+ Invalid Interpretation Code [facility] Work Phone: Documentation of current medications (procedure) Done Invalid Interpretation Code [facility] Work Phone: specific gravity, urine 1.000 Invalid Interpretation Code [facility] Work Phone: Tobacco smoking status NHIS Never Invalid Interpretation Code [facility] Work Phone: Tobacco use [facility] Never smoker Invalid Interpretation Code [facility] Work Phone: Urine, appearance cloudy Invalid Interpretation Code [facility] Work Phone: Urine, bilirubin presence Negative Invalid Interpretation Code [facility] Work Phone: Urine, color red Invalid Interpretation Code [facility] Work Phone: Urine, glucose presence Negative Invalid Interpretation Code [facility] Work Phone: Urine, ketones presence Negative Invalid Interpretation Code [facility] Work Phone: Urine, leukocyte esterase presence 2+ Invalid Interpretation Code [facility] Work Phone: Urine, nitrite presence Positive Invalid Interpretation Code [facility] Work Phone: Urine, pH 7.5 [pH] Invalid Interpretation Code [facility] Work Phone: Urine, protein Negative Invalid Interpretation Code [facility] Work Phone: Urine, urobilinogen presence Negative Invalid Interpretation Code [facility] Work Phone: Office Visit: UC: Poison Christa on 07-27-2016 Documentation of current medications (procedure) Done Invalid Interpretation Code [facility] Work Phone: Fall risk assessment No Invalid Interpretation Code [facility] Work Phone: Protein mass conc Done [facility] Work Phone: Tobacco smoking status NHIS Never [facility] Work Phone: Tobacco smoking status TXIS Never smoker [facility] Work Phone: Tobacco use [facility] Never smoker Invalid Interpretation Code [facility] Work Phone: Office Visit: Spine Visit- L ow back painon 07-19-2016 Documentation of current medications (procedure) Done Invalid Interpretation Code [facility] Work Phone: Protein mass conc Done [facility] Work Phone: Office Visit: Spine Visit- L ow back painon 06-15-2016 Documentation of current medications (procedure) Done Invalid Interpretation Code [facility] Work Phone: Office Visit: Spine Visit- L ow back painon 06-08-2016 Documentation of current medications (procedure) Done Invalid Interpretation Code [facility] Work Phone: Office Visit: Spine Visit- N EWon 05-26-2016 Tobacco smoking status TXIS Never [facility] Work Phone: Tobacco smoking status TXIS Never smoker [facility] Work Phone: Tobacco use [facility] Never smoker Invalid Interpretation Code [facility] Work Phone: Otheron 08-13-1999 CONVERTED ELECTRONIC SIGNATURE ZULEYMA BURCIAGA M.D., PATHOLOGIST (Electronic signature on file) Final Signed Out: 08/13/1999 12:15 [facility] CONVERTED FINAL DIAGNOSIS PLACENTA, UMBILICAL CORD AND MEMBRANES, DELIVERY - FOCAL EARLY ACUTE CHORIONITIS (SEE COMMENT). PLACENTAL DISC WITH SMALL ACCESSORY LOBE. PLACENTAL DISC AND UMBILICAL CORD WITH NO HISTOLOGIC ABNORMALITY. COMMENT: Sections from the membranes demonstrate focal acute inflammation confined to the chorion and subchorionic layers. Extension into the amniotic layer is not identified. These findings are mild and of uncertain clinical significance. Clinical correlation is needed. [facility] CONVERTED ORDERING PROVIDER Ordering Provider: ÁNGEL DUMONT [facility] Vital Signs Date Time Vital Sign Value Performing Clinician Milton myles 09-28-2024 08:15-0400 Body height 152.[address] Royce Niño MD Work Phone: [facility] 09-28-2024 08:15-0400 Body mass index (BMI) [Ratio] 34 kg/m2 Dr. Royce Niño MD Work Phone: [facility] 09-28-2024 08:15-0400 Body temperature 98.7 [degF] Dr. Royce Niño MD Work Phone: [facility] 09-28-2024 08:15-0400 Body weight 78.[address] Royce Niño MD Work Phone: [facility] 09-28-2024 08:15-0400 Diastolic blood pressure 72 mm[Hg] Dr. Royce Niño MD Work Phone: [facility] 09-28-2024 08:15-0400 Heart rate 83 /min Dr. Royce Niño MD Work Phone: [facility] 09-28-2024 08:15-0400 SaO2% (BldA) [Mass fraction] 96 % Dr. Royce Niño MD Work Phone: [facility] 09-28-2024 08:15-0400 Systolic blood pressure 136 mm[Hg] Dr. Royce Niño MD Work Phone: [facility] 09-12-2024 17:36-0400 Body temperature 97.9 [degF] Kenny Samano STATION ENGINEER CHIEF.LAUNCHING PAD MECHANIC Work Phone: [facility] 09-12-2024 17:36-0400 Body weight 79.6 kg Kenny Samano STATION ENGINEER CHIEF.LAUNCHING PAD MECHANIC Work Phone: [facility] 09-12-2024 17:36-0400 Diastolic blood pressure 68 mm[Hg] Kenny Samano STATION ENGINEER CHIEF.LAUNCHING PAD MECHANIC Work Phone: [facility] 09-12-2024 17:36-0400 Heart rate 67 /min Kenny Samano STATION ENGINEER CHIEF.LAUNCHING PAD MECHANIC Work Phone: [facility] 09-12-2024 17:36-0400 Respiratory rate 18 /min Kenny Samano STATION ENGINEER CHIEF.LAUNCHING PAD MECHANIC Work Phone: [facility] 09-12-2024 17:36-0400 SaO2% (BldA) [Mass fraction] 98 % Kenny Estebangrace STATION ENGINEER CHIEF.LAUNCHING PAD MECHANIC Work Phone: [facility] 09-12-2024 17:36-0400 Systolic blood pressure 109 mm[Hg] Kenny Selwyn STATION ENGINEER CHIEF.LAUNCHING PAD MECHANIC Work Phone: [facility] 07-14-2024 08:21-0400 Body temperature 97.9 [degF] Dr. Royce Niño MD Work Phone: [facility] 07-14-2024 08:21-0400 Diastolic blood pressure 70 mm[Hg] Dr. Royce Niño MD Work Phone: [facility] 07-14-2024 08:21-0400 Heart rate 67 /min Dr. Royce Niño MD Work Phone: [facility] 07-14-2024 08:21-0400 Respiratory rate 15 /min Dr. Royce Niño MD Work Phone: [facility] 07-14-2024 08:21-0400 SaO2% (BldA) [Mass fraction] 98 % Dr. Royce Niño MD Work Phone: [facility] 07-14-2024 08:21-0400 Systolic blood pressure 114 mm[Hg] Dr. Royce Niño MD Work Phone: [facility] 05-02-2024 08:25-0400 Body height 152.[address] Royce Niño MD Work Phone: [facility] 05-02-2024 08:25-0400 Body mass index (BMI) [Ratio] 34 kg/m2 Dr. Royce Niño MD Work Phone: [facility] 05-02-2024 08:25-0400 Body temperature 97.7 [degF] Dr. Royce Niño MD Work Phone: [facility] 05-02-2024 08:25-0400 Body weight 78.[address] Royce Niño MD Work Phone: [facility] 05-02-2024 08:25-0400 Diastolic blood pressure 69 mm[Hg] Dr. Royce Niño MD Work Phone: [facility] 05-02-2024 08:25-0400 Heart rate 68 /min Dr. Royce Niño MD Work Phone: 8(543)926-404713 [address] 05-02-2024 08:25-0400 Respiratory rate 16 /min Dr. Royce Niño MD Work Phone: 2(247)895-674913 [address] 05-02-2024 08:25-0400 SaO2% (BldA) [Mass fraction] 96 % Dr. Royce Niño MD Work Phone: 9(747)423-860685 [place] [address] 05-02-2024 08:25-0400 Systolic blood pressure 108 mm[Hg] Dr. Royce Niño MD Work Phone: 9(191)721-377485 [place] [address] 04-09-2024 15:24-0500 Body height 152.[address] Royce Niño MD Work Phone: 7(832)845-053985 [place] [address] 04-09-2024 15:20-0500 Body mass index (BMI) [Ratio] 34.2 kg/m2 Dr. Royce Niño MD Work Phone: 5(982)036-927285 [place] [address] 04-09-2024 15:20-0500 Body weight 79.[address] Royce Niño MD Work Phone: 5(997)827-309692 [place] [address] 04-09-2024 15:20-0500 Diastolic blood pressure 76 mm[Hg] Dr. Royce Niño MD Work Phone: 5(604)865-079092 [place] [address] 04-09-2024 15:20-0500 Systolic blood pressure 128 mm[Hg] Dr. Royce Niño MD Work Phone: 3(486)463-596092 [place] [address] 05-01-2023 06:36-0400 Body height 152.[address] Royce Niño Work Phone: 9(140)853-115592 [place] [address] 05-01-2023 06:36-0400 Body mass index (BMI) [Ratio] 32.8 kg/m2 Dr. Royce Niño Work Phone: [facility] 05-01-2023 06:36-0400 Body temperature 97.5 [degF] Dr. Royce Niño Work Phone: [facility] 05-01-2023 06:36-0400 Body weight 76.[address] Royce Niño Work Phone: [facility] 05-01-2023 06:36-0400 Diastolic blood pressure 70 mm[Hg] Dr. Royce Niño Work Phone: [facility] 05-01-2023 06:36-0400 Heart rate 74 /min Dr. Royce Niño Work Phone: [facility] 05-01-2023 06:36-0400 Respiratory rate 18 /min Dr. Royce Niño Work Phone: [facility] 05-01-2023 06:36-0400 SaO2% (BldA) [Mass fraction] 98 % Dr. Royce Niño Work Phone: [facility] 05-01-2023 06:36-0400 Systolic blood pressure 122 mm[Hg] Dr. Royce Niño Work Phone: [facility] 04-26-2023 20:08-0400 Body temperature 98.3 [degF] Dr. Mando Niño Work Phone: [facility] 04-26-2023 20:08-0400 Diastolic blood pressure 83 mm[Hg] Dr. Mando Niño Work Phone: [facility] 04-26-2023 20:08-0400 Heart rate 76 /min Dr. Mando Niño Work Phone: [facility] 04-26-2023 20:08-0400 Respiratory rate 14 /min Dr. Mando Niño Work Phone: [facility] 04-26-2023 20:08-0400 SaO2% (BldA) [Mass fraction] 98 % Dr. Mando Niño Work Phone: [facility] 04-26-2023 20:08-0400 Systolic blood pressure 138 mm[Hg] Dr. Mando Niño Work Phone: [facility] 04-26-2023 17:37-0400 Body height 152.[address] Mando Niño Work Phone: [facility] 04-26-2023 17:37-0400 Body mass index (BMI) [Ratio] 34.9 kg/m2 Dr. Mando Niño Work Phone: [facility] 04-26-2023 17:37-0400 Body weight 81.[address] Mando Niño Work Phone: [facility] 04-03-2023 09:28-0500 Body height 152.[address] Mando Niño Work Phone: [facility] 04-03-2023 09:28-0500 Body mass index (BMI) [Ratio] 34 kg/m2 Dr. Mando Niño Work Phone: [facility] 04-03-2023 09:28-0500 Body weight 78.[address] Mando Niño Work Phone: [facility] 04-03-2023 09:28-0500 Diastolic blood pressure 73 mm[Hg] Dr. Mando Niño Work Phone: [facility] 04-03-2023 09:28-0500 Systolic blood pressure 131 mm[Hg] Dr. Mando Niño Work Phone: [facility] 03-21-2023 10:48-0500 Body mass index (BMI) [Ratio] 33.2 kg/m2 Dr. Mando Niño Work Phone: [facility] 03-21-2023 10:48-0500 Body weight 77.[address] Mando Niño Work Phone: [facility] 02-14-2023 14:38-0500 Body mass index (BMI) [Ratio] 34.2 kg/m2 Dr. Mando Niño Work Phone: [facility] 02-14-2023 14:38-0500 Body weight 79.[address] Mando Niño Work Phone: [facility] 02-14-2023 14:38-0500 Diastolic blood pressure 72 mm[Hg] Dr. Mando Niño Work Phone: [facility] 02-14-2023 14:38-0500 Heart rate 61 /min Dr. Mando Niño Work Phone: [facility] 02-14-2023 14:38-0500 Respiratory rate 14 /min Dr. Mando Niño Work Phone: [facility] 02-14-2023 14:38-0500 Systolic blood pressure 113 mm[Hg] Dr. Mando Niño Work Phone: [facility] 01-30-2023 10:20-0500 Body temperature 96.5 [degF] Dr. Mando Niño Work Phone: [facility] 01-30-2023 10:20-0500 Diastolic blood pressure 61 mm[Hg] Dr. Mando Niño Work Phone: [facility] 01-30-2023 10:20-0500 Heart rate 66 /min Dr. Mando Niño Work Phone: [facility] 01-30-2023 10:20-0500 Respiratory rate 16 /min Dr. Mando Niño Work Phone: [facility] 01-30-2023 10:20-0500 SaO2% (BldA) [Mass fraction] 99 % Dr. Mando Niño Work Phone: [facility] 01-30-2023 10:20-0500 Systolic blood pressure 99 mm[Hg] Dr. Mando Niño Work Phone: [facility] 01-30-2023 08:53-0500 Body height 152.[address] Mando Niño Work Phone: [facility] 01-30-2023 08:53-0500 Body mass index (BMI) [Ratio] 34.4 kg/m2 Dr. Mando Niño Work Phone: [facility] 01-30-2023 08:53-0500 Body weight [address] Mando Niño Work Phone: [facility] 12-19-2022 09:05-0500 Body temperature 98.4 [degF] Dr. Mando Niño Work Phone: [facility] 12-19-2022 09:05-0500 Diastolic blood pressure 65 mm[Hg] Dr. Mando Nioñ Work Phone: [facility] 12-19-2022 09:05-0500 Heart rate 74 /min Dr. Mando Niño Work Phone: [facility] 12-19-2022 09:05-0500 Respiratory rate 16 /min Dr. Mando Niño Work Phone: [facility] 12-19-2022 09:05-0500 SaO2% (BldA) [Mass fraction] 98 % Dr. Mando Niño Work Phone: [facility] 12-19-2022 09:05-0500 Systolic blood pressure 95 mm[Hg] Dr. Mando Niño Work Phone: [facility] 12-19-2022 07:46-0500 Body height 152.[address] Mando Niño Work Phone: [facility] 12-19-2022 07:46-0500 Body mass index (BMI) [Ratio] 34.4 kg/m2 Dr. Mando Niño Work Phone: [facility] 12-19-2022 07:46-0500 Body weight [address] Mando Niño Work Phone: [facility] 10-10-2022 07:52-0400 Body height 152.[address] Mando Niño Work Phone: [facility] 10-10-2022 07:46-0400 Body mass index (BMI) [Ratio] 34.7 kg/m2 Dr. Mando Niño Work Phone: [facility] 10-10-2022 07:46-0400 Body temperature 97.6 [degF] Dr. Mando Niño Work Phone: [facility] 10-10-2022 07:46-0400 Body weight 80.[address] Mando Niño Work Phone: [facility] 10-10-2022 07:46-0400 Diastolic blood pressure 71 mm[Hg] Dr. Mando Niño Work Phone: [facility] 10-10-2022 07:46-0400 Heart rate 65 /min Dr. Mando Niño Work Phone: [facility] 10-10-2022 07:46-0400 Respiratory rate 18 /min Dr. Mando Niño Work Phone: [facility] 10-10-2022 07:46-0400 SaO2% (BldA) [Mass fraction] 96 % Dr. Mando Niño Work Phone: [facility] 10-10-2022 07:46-0400 Systolic blood pressure 118 mm[Hg] Dr. Mando Niño Work Phone: [facility] 08-29-2022 14:11-0400 Body temperature 97 [degF] Dr. Mando Niño Work Phone: [facility] 08-29-2022 14:11-0400 Diastolic blood pressure 71 mm[Hg] Dr. Mando Niño Work Phone: [facility] 08-29-2022 14:11-0400 Heart rate 65 /min Dr. Mando Niño Work Phone: [facility] 08-29-2022 14:11-0400 Respiratory rate 16 /min Dr. Mando Niño Work Phone: [facility] 08-29-2022 14:11-0400 SaO2% (BldA) [Mass fraction] 100 % Dr. Mando Niño Work Phone: [facility] 08-29-2022 14:11-0400 Systolic blood pressure 102 mm[Hg] Dr. Mando Niño Work Phone: [facility] 08-29-2022 13:04-0400 Body height 152.[address] Mando Niño Work Phone: [facility] 08-29-2022 13:04-0400 Body mass index (BMI) [Ratio] 33.5 kg/m2 Dr. Mando Niño Work Phone: [facility] 08-29-2022 13:04-0400 Body weight [address] Mando Niño Work Phone: 2(833)816-242292 [place] [address] 03-30-2022 15:23-0500 Body height 152.[address] Mando Niño Work Phone: 8(644)799-941213 [address] 03-30-2022 15:18-0500 Body mass index (BMI) [Ratio] 34.2 kg/m2 Dr. Mando Niño Work Phone: [facility] 03-30-2022 15:18-0500 Body weight 79.[address] Mando Niño Work Phone: [facility] 03-30-2022 15:18-0500 Diastolic blood pressure 72 mm[Hg] Dr. Mando Niño Work Phone: [facility] 03-30-2022 15:18-0500 Systolic blood pressure 118 mm[Hg] Dr. Mando Niño Work Phone: [facility] 10-15-2021 11:49-0400 Body height 152.[address] Mando Niño Work Phone: [facility] Work Phone: 10-15-2021 11:49-0400 Body mass index (BMI) [Ratio] 33.5 kg/m2 Dr. Mando Niño Work Phone: [facility] Work Phone: 10-15-2021 11:49-0400 Body weight 78.[address] Mando Niño Work Phone: [facility] Work Phone: 10-15-2021 11:49-0400 Diastolic blood pressure 60 mm[Hg] Dr. Mando Niño Work Phone: [facility] Work Phone: 10-15-2021 11:49-0400 Heart rate 68 /min Dr. Mando Niño Work Phone: [facility] Work Phone: 10-15-2021 11:49-0400 Respiratory rate 16 /min Dr. Mando Niño Work Phone: [facility] Work Phone: 10-15-2021 11:49-0400 Systolic blood pressure 102 mm[Hg] Dr. Mando Niño Work Phone: [facility] Work Phone: 09-30-2021 09:40-0400 Body mass index (BMI) [Ratio] 33 kg/m2 Dr. Mando Niño Work Phone: [facility] Work Phone: 09-30-2021 09:40-0400 Body weight 76.[address] Mando Niño Work Phone: [facility] Work Phone: 08-18-2016 07:54-0400 BMI (Body Mass Index) 23.04 kg/m2 Michael Lieberman SIGNAL MAINTENANCE TECHNICIAN-C [facility] Work Phone: 08-18-2016 07:54-0400 Body Temperature 98.8 [degF] Michael Lieberman SIGNAL MAINTENANCE TECHNICIAN-C [facility] Work Phone: 08-18-2016 07:54-0400 BP Diastolic 80 mm[Hg] Michael Lieberman SIGNAL MAINTENANCE TECHNICIAN-C [facility] Work Phone: 08-18-2016 07:54-0400 BP Systolic 120 mm[Hg] Michael Lieberman SIGNAL MAINTENANCE TECHNICIAN-C [facility] Work Phone: 08-18-2016 07:54-0400 Height 152.4 cm Michael Lieberman SIGNAL MAINTENANCE TECHNICIAN-C [facility] Work Phone: 08-18-2016 07:54-0400 Pulse (Heart Rate) 66 /min Michael Lieberman SIGNAL MAINTENANCE TECHNICIAN-C [facility] Work Phone: 08-18-2016 07:54-0400 Respiratory Rate 16 /min Michael Lieberman SIGNAL MAINTENANCE TECHNICIAN-C [facility] Work Phone: 08-18-2016 07:54-0400 Weight 53.52 kg Michael Lieberman SIGNAL MAINTENANCE TECHNICIAN-C [facility] Work Phone: 07-27-2016 06:32-0400 BMI (Body Mass Index) 22.85 kg/m2 [facility] Work Phone: 07-27-2016 06:32-0400 Body Temperature 99 [degF] [facility] Work Phone: 07-27-2016 06:32-0400 BP Diastolic 70 mm[Hg] Celia Bazzi LPN [facility] Work Phone: 07-27-2016 06:32-0400 BP Systolic 94 mm[Hg] [facility] Work Phone: 07-27-2016 06:32-0400 Height 152.4 cm Celia Bazzi LPN [facility] Work Phone: 07-27-2016 06:32-0400 Pulse (Heart Rate) 75 /min Celia Bazzi [facility] Work Phone: 07-27-2016 06:32-0400 Pulse Oximetry 99 % Celia Bazzi [facility] Work Phone: 07-27-2016 06:32-0400 Respiratory Rate 16 /min Celia Bazzi BINGO CHECKER [facility] Work Phone: 07-27-2016 06:32-0400 Weight 53.07 kg Celia Bazzi [facility] Work Phone: 05-26-2016 09:40-0400 BMI (Body Mass Index) 21.48 kg/m2 Hansa Dossi DC [facility] Work Phone: 05-26-2016 09:40-0400 BP Diastolic 56 mm[Hg] Hansa Dossi DC [facility] Work Phone: 05-26-2016 09:40-0400 BP Systolic 110 mm[Hg] Hansa Dossi DC [facility] Work Phone: 05-26-2016 09:40-0400 Height 152.4 cm Hansa Dossi DC [facility] Work Phone: 05-26-2016 09:40-0400 Weight 49.9 kg Hansa Dossi DC [facility] Work Phone: Encounters Encounter Date Encounter Type Care Provider Facility Start: 09-29-2024 End: 09-29-[address] Royce Niño MD Work Phone: -Laboratory Specimen Start: 09-29-2024 End: 09-29-2024 Patient encounter procedure Matheus Horn PA -Laboratory Specimen Work Phone: Start: 09-28-2024 End: 09-28-2024 Patient encounter procedure Tonny Nguyen [facility] Work Phone: Start: 09-28-2024 End: 09-29-[address] Royce Niño MD Work Phone: [facility] Start: 09-15-2024 End: 09-15-2024 Follow-up encounter Enrique Zepeda STATION ENGINEER CHIEF.LAUNCHING PAD MECHANIC Work Phone: [facility] Comment on above: Results Start: 09-12-2024 End: 09-12-2024 Office outpatient new 30 minutes Kenny Selwyn STATION ENGINEER CHIEF.LAUNCHING PAD MECHANIC Work Phone: [facility] Comment on above: Burning with urinati on (Primary Dx) Start: 09-12-2024 End: 09-12-2024 ambulatory [facility] Facility:[facility] Start: 07-15-2024 End: 07-15-[address] Royce Niño MD Work Phone: [facility] Work Phone: Start: 07-15-2024 End: 07-15-2024 Patient encounter procedure Ricardo Luz STUDIO OPERATION ENGINEER-C -Laboratory Specimen Work Phone: Start: 07-14-2024 End: 07-14-2024 Patient encounter procedure Ricardo Luz STUDIO OPERATION ENGINEER-C -[facility] Work Phone: Start: 07-14-2024 End: 07-15-[address] Royce Niño MD Work Phone: [facility] Work Phone: Start: 05-06-2024 Registered [facility] -Laboratory Work Phone: Start: 05-06-2024 ambulatory Royce Niño Fac lity:[facility] Start: 05-02-2024 End: 05-02-2024 Patient encounter procedure Temitope Campuzano STUDIO OPERATION ENGINEER-C -[facility] Work Phone: Start: 05-02-2024 End: 05-02-2024 ambulatory Royce Niño Facility:[facility] Start: 04-19-2024 End: 04-19-[address] Royce Niño MD Work Phone: [facility] Work Phone: Start: 04-19-2024 End: 04-19-2024 Patient encounter procedure Kallie Chisholm STUDIO OPERATION ENGINEER-C -Outpatient Breast Imaging Work Phone: Start: 04-19-2024 End: 04-19-2024 ambulatory Kallie Chisholm STUDIO OPERATION ENGINEER Facility:[facility] Start: 04-09-2024 End: 04-09-2024 Patient encounter procedure Kallie Chisholm STUDIO OPERATION ENGINEER-C -[facility] Work Phone: Start: 04-09-2024 End: 04-09-2024 Patient encounter status Kallie Chishoml STUDIO OPERATION ENGINEER-C [facility] Start: 04-09-2024 End: 04-09-[address] Royce Niño MD Work Phone: [facility] Work Phone: Start: 04-09-2024 End: 04-09-2024 ambulatory Kallie Donnellson NP Facility:[facility] Start: 11-03-2023 End: 11-03-2023 ambulatory Royce Niño Facility:[facility] Start: 05-19-2023 End: 05-19-[address] Royce Niño Work Phone: [facility] Work Phone: Start: 05-19-2023 End: 05-19-[address] Royce Niño Work Phone: [facility]-Physical Therapy Work Phone: Start: 05-01-2023 End: 05-01-[address] Royce Niño Work Phone: [facility] Work Phone: Start: 04-26-2023 End: 04-26-2023 Emergency department patient visit Dr. Mando Niño Work Phone: [facility]-Emergency Department Work Phone: Start: 04-26-[address] Ebenezer Niño Work Phone: [facility]-Physical Therapy Work Phone: Start: 04-17-[address] Ebenezer Niño Work Phone: [facility]-Physical Therapy Work Phone: Start: 04-13-2023 End: 04-13-[address] Mando Niño Work Phone: [facility] Work Phone: Start: 04-13-2023 End: 04-13-[address] Mando Niño Work Phone: [facility]-Outpatient Breast Imaging Work Phone: Start: 04-04-2023 Non-patient / Non-visit Dr. Madno Niño Work Phone: [facility] Start: 04-04-2023 End: 04-04-[address] [facility] Start: 04-03-2023 End: 04-03-[address] Mando Niño Work Phone: [facility] Work Phone: Start: 03-21-2023 Non-patient / Non-visit Dr. Mando Niño Work Phone: [facility] Work Phone: Start: 02-27-[address] Jesus Niño Work Phone: [facility] Start: 02-14-2023 End: 02-14-[address] Mando Niño Work Phone: [facility] Work Phone: Start: 01-30-2023 End: 01-30-2023 Admission to same day surgery center Dr. Mando Niño [facility] Start: 01-30-2023 End: 01-30-[address] Mando Niño Work Phone: [facility] Work Phone: Start: 12-19-2022 End: 12-19-2022 Admission to same day surgery center Dr. Mando Niño [facility] Start: 12-19-2022 End: 12-19-[address] Mando Niño Work Phone: [facility] Work Phone: Start: 11-23-2022 End: 11-23-[address] Mando Niño Work Phone: [facility] Work Phone: Start: 11-23-2022 End: 11-23-[address] Mando Niño Work Phone: [facility]-Laboratory Work Phone: Start: 10-18-2022 End: 10-18-[address] Mando Niño Work Phone: [facility] Work Phone: Start: 10-18-2022 End: 10-18-[address] Mando Niño Work Phone: [facility]-Sleep Lab Work Phone: Start: 10-10-2022 End: 10-10-[address] Mando Niño Work Phone: [facility] Medicine [facility] Work Phone: Start: 09-23-2022 End: 09-23-[address] Mando Niño Work Phone: [facility]-Sleep Lab Work Phone: Start: 08-29-2022 End: 08-29-2022 Admission to same day surgery center Dr. Mando Niño Work Phone: [facility] Start: 08-29-2022 End: 08-29-[address] Mando Niño Work Phone: [facility] Work Phone: Start: 07-16-2022 End: 07-16-[address] Mando Niño Work Phone: [facility] Work Phone: Start: 07-16-2022 End: 07-16-[address] Mando Niño Work Phone: [facility] Start: 06-27-2022 End: 06-27-[address] Mando Niño Work Phone: [facility] Work Phone: Start: 06-27-2022 End: 06-27-[address] Mando Niño Work Phone: [facility]-Physical Therapy Work Phone: Start: 06-27-[address] Ebenezer Niño Work Phone: [facility]-Physical Therapy Start: 06-08-2022 End: 06-08-[address] Mando Niño Work Phone: [facility] Work Phone: Start: 06-08-2022 End: 06-08-[address] Mando Niño Work Phone: [facility] Start: 06-08-2022 End: 06-08-[address] Mando Niño Work Phone: [facility] Start: 06-06-2022 End: 06-06-[address] Mando Niño Work Phone: [facility] Start: 04-26-2022 End: 04-26-[address] Mando Niño Work Phone: [facility] Work Phone: Start: 04-26-2022 End: 04-26-[address] Mando Niño Work Phone: [facility]-Laboratory Start: 04-19-2022 End: 04-19-[address] Mando Niño Work Phone: [facility] Work Phone: Start: 04-19-2022 End: 04-19-[address] Mando Niño Work Phone: [facility] Start: 04-14-2022 End: 04-14-[address] Mando Niño Work Phone: [facility] Work Phone: Start: 04-14-2022 End: 04-14-[address] Mando Niño Work Phone: [facility]-Laboratory Start: 04-05-2022 End: 04-05-[address] Mando Niño Work Phone: [facility]-Outpatient Breast Imaging Start: 03-30-2022 End: 03-30-[address] Mando Niño Work Phone: [facility] Start: 01-17-2022 End: 01-17-[address] Mando Niño Work Phone: [facility] Work Phone: Start: 01-17-2022 End: 01-17-[address] Mando Niño Work Phone: [facility]-Laboratory Start: 01-14-2022 End: 01-14-2022 ambulatory [facility] Work Phone: Start: 01-14-2022 End: 01-14-2022 Discharged Recurring [facility]Physical Therapy Start: 01-14-[address] Ebenezer Niño Work Phone: [facility] Therapy Start: 11-02-2021 End: 11-02-[address] Mando Niño Work Phone: [facility] Work Phone: Start: 11-02-2021 End: 11-02-[address] Mando Niño Work Phone: [facility] Start: 10-27-[address] Jesus Niño Work Phone: [facility] Start: 10-19-2021 End: 10-19-[address] [facility]ando [facility] Start: 10-15-2021 End: 10-15-[address] Mando Niño Work Phone: [facility] Start: 10-05-2021 End: 10-05-[address] Mando [facility]ño [facility] Start: 09-30-2021 End: 09-30-[address] Mando Niño [facility] Start: 09-15-2021 End: 09-15-[address] Mando Niño Work Phone: [facility]-Laboratory Start: 08-09-1999 End: 08-09-1999 Patient encounter procedure Ángel Dumont Work Phone: [facility] Start: 08-09-1999 Results Only Ángel mendoza Work Phone: [facility] Procedures Date Procedure Procedure Detail Performing Clinician Start: 09-30-[address] Ebenezer Niño MD Work Phone: Start: 09-12-2024 Urnls dip stick/tabl et rgnt auto w/o microscopy Cheyenne Noonan APRN.LAUNCHING PAD MECHANIC Work Phone: Start: 07-15-[address] Ebenezer Niño MD Work Phone: Start: 05-06-2024 Serum inorganic phos phate measurement Dr. Royce Niño MD Work Phone: Start: 05-06-2024 Urnls dip stick/tabl et reagent auto microscopy Dr. Royce Niño MD Work Phone: Start: 04-19-2024 Screening mammography Yenny Niño MD Work Phone: Start: 04-09-2024 Liquid based cervica l cytology screening Dr. Royce Niño MD Work Phone: Comment on above: NEGATIVE FOR INTRAEP ITHELIAL LESION OR MALIGNANCY. This liquid based Th inPrep(R) pap test was screened withthe use of an image guided system. Start: 04-13-2023 Screening mammography Yenny Niño Work Phone: Start: 01-30-2023 Local anesthetic lum bar epidural block Dr. Mando Niño Work Phone: Start: 01-30-2023 Injection of facet joint Dr. Mando Niño Work Phone: Start: 01-30-2023 Injection of spinal epidural space Dr. Mando Niño Work Phone: Start: 01-30-2023 X-ray of lumbar spin e, two or three views Dr. Mando Niño Work Phone: Start: 12-19-2022 Local anesthetic sac ral epidural block Dr. Mando Niño Work Phone: Start: 12-19-2022 Injection of spinal epidural space Dr. Mando Niño Work Phone: Start: 12-19-2022 Injection using fluoroscopic guidance Dr. Mando Niño Work Phone: Start: 11-23-[address] Ebenezer Niño Work Phone: Start: 08-29-2022 Local anesthetic sac ral epidural block Dr. Mando Niño Work Phone: Start: 08-29-2022 Injection of spinal epidural space Dr. Mando Niño Work Phone: Start: 08-29-2022 Injection using fluoroscopic guidance Dr. Mando Niño Work Phone: Start: 07-16-2022 MRI of lumbar spine Dr. Mando Niño Work Phone: Start: 06-08-2022 X-ray of lumbosacral spine Dr. Mando Niño Work Phone: Start: 04-19-2022 MRI of lower extremity Dr. Mando Niño Work Phone: Start: 04-05-2022 Screening mammography D dona Niño Work Phone: Start: 11-02-2021 X-ray of both feet Dr. Mando Niño Work Phone: Start: 08-18-2016 End: 08-18-2016 *UA - Urinalysis w/o Micro Michael A Lieberman SIGNAL MAINTENANCE TECHNICIAN-C Start: 08-18-2016 End: 08-18-2016 Urinalysis nonauto w/o scope Michael A Lieberman SIGNAL MAINTENANCE TECHNICIAN-C Start: 07-19-2016 End: 07-19-2016 Chiropractic manipulation Hansa Caal Dossi DC Work Phone: Start: 07-19-2016 End: 07-19-2016 Electric stimulation therapy Hansa Caal Dossi DC Work Phone: Start: 07-19-2016 End: 07-19-2016 Mechanical traction therapy Hansa Caal Lars i DC Work Phone: Start: 06-15-2016 End: 06-15-2016 Chiropractic manipulation Hansa B Dossi DC Work Phone: Start: 06-15-2016 End: 06-15-2016 Electric stimulation therapy Hansa B Dossi DC Work Phone: Start: 06-15-2016 End: 06-15-2016 Mechanical traction therapy Hansa B Lars i DC Work Phone: Start: 06-08-2016 End: 06-09-2016 Chiropractic manipulation Hansa B Dossi DC Work Phone: Start: 06-08-2016 End: 06-09-2016 Electric stimulation therapy Hansa B Dossi DC Work Phone: Start: 06-08-2016 End: 06-09-2016 Mechanical traction therapy Hansa B Lars i DC Work Phone: Start: 06-01-2016 End: 06-01-2016 Chiropractic manipulation Hansa B Dossi DC Work Phone: Start: 06-01-2016 End: 06-01-2016 Electric stimulation therapy Hansa B Dossi DC Work Phone: Start: 06-01-2016 End: 06-01-2016 Mechanical traction therapy Hansa B Lars i DC Work Phone: Start: 05-30-2016 End: 05-30-2016 Chiropractic manipulation Hansa B Dossi DC Work Phone: Start: 05-30-2016 End: 05-30-2016 Electric stimulation therapy Hansa B Dossi DC Work Phone: Start: 05-30-2016 End: 05-30-2016 Mechanical traction therapy Hansa B Lars i DC Work Phone: Start: 05-26-2016 End: 05-26-2016 Chiropractic manipulation Hansa B Dossi DC Work Phone: Start: 05-26-2016 End: 05-26-2016 Electric stimulation therapy Hansa B Dossi DC Work Phone: Start: 05-26-2016 End: 05-26-2016 Mechanical traction therapy Hansa B Lars i DC Work Phone: Start: 05-26-2016 End: 05-26-2016 X-ray exam of lower spine Hansa Caal Latasha MASON Work Phone: Start: 08-09-1999 CONVERTED SURGICAL PATHOLOGY Ángel Dumont Work Phone: Plan of Treatment Date Care Activity Detail Author Start: 02-22-2033 Urine microalbumin profile DTaP,Tdap,Td Vaccine (4 - Td or Tdap) [facility] Start: 10-14-2024 Influenza vaccination Influenza Vacc ine (#1) [facility] Start: 07-04-2024 Shingrix Vaccine (2 of 2) Shingrix Vaccine (2 of 2) [facility] Start: 2024 Pneumococcal Vaccine : 50+ (1 of 1 - PCV) Pneumococcal Vaccine: 50+ (1 of 1 - PCV) [facility] Start: 04-26-2023 [facility] Start: 01-30-2023 Anes dx/ther nerve block/injection prone pos ANESTH N BLOCK/INJ PRONE [facility] Start: 01-30-2023 Njx anes&/strd w/img tfrml edrl lmbr/sac 1 lvl NJX AA&/STRD TFRM EPI L/S 1 [facility] Start: 01-30-2023 Njx anes&/strd w/img tfrml edrl lmbr/sac ea lv NJX AA&/STRD TFRM EPI L/S EA [facility] Start: 01-30-2023 Injection of facet joint [facility] Start: 01-30-2023 Injection of spinal epidural space [facility] Start: 01-30-2023 Patient discharge [facility] Start: 12-19-2022 Njx dx/ther sbst intrlmnr lmbr/sac w/img gdn NJX INTERLAMINAR LMBR/SAC [facility] Start: 12-19-2022 Injection using fluoroscopic guidance [facility] Start: 12-19-2022 Patient discharge [facility] Start: 08-29-2022 Njx dx/ther sbst intrlmnr lmbr/sac w/img gdn NJX INTERLAMINAR LMBR/SAC [facility] Start: 08-29-2022 Injection using fluoroscopic guidance [facility] Start: 08-29-2022 Patient discharge [facility] Start: 10-15-2019 Influenza vaccination INFLUENZA (#1) [facility] Start: 2019 DIABETES SCREEN DIABETES SCREEN [facility] Start: 2019 Diabetes Screening Diabetes Screenin g [facility] Start: 2019 Lipid panel Lipid Screening [facility] Start: 2019 LIPID SCREEN LIPID SCREEN [facility] Start: 2019 Screening for malign ant neoplasm of colon [facility] Start: 08-18-2016 End: 08-18-2016 Appointment Appointment [facility] [employer] Work Phone: Start: 08-18-2016 End: 08-18-2016 *UA - Urinalysis w/o Micro *UA - Urinalysis w/o Micro [facility] [employer] Work Phone: Start: 08-18-2016 End: 08-18-2016 Urine culture, bacteria *CUUR - Culture, Urine ([place] Count) [facility] Work Phone: Start: 07-27-2016 End: 07-27-2016 Appointment Appointment [facility] Work Phone: Start: 07-19-2016 End: 07-19-2016 Appointment Appointment [facility] Work Phone: Start: 06-15-2016 End: 06-15-2016 [...] [facility]ropract[facility] Work Phone: Start: 2014 Mammography MAMMOGRAM [facility] Start: 2014 Screening for malign ant neoplasm of breast Mammogram Screening [facility] Start: 07-17-2013 HPV TESTING HPV TESTING [facility] Start: 07-17-2013 PAP TESTING PAP TESTING [facility] Start: 07-17-2013 Screening for malign ant neoplasm of cervix Cervical Cancer Screening [facility] Start: 1993 Hepatitis B Vaccine (1 of 3 - 19+ 3-dose series) Hepatitis B Vaccine (1 of 3 - 19+ 3-dose series) [facility] Start: 1993 Urine microalbumin profile DTAP,TDAP,TD (1 - Tdap) [facility] Start: 1992 Anxiety Screening Anxiety Screening [facility] Start: 1992 Depression Screening Depression Scre ening [facility] Start: 1992 HEPATITIS C SCREENING HEPATITIS C [facility] Start: 1992 Hepatitis C screening Hepatitis C [facility] Start: 1992 HIV SCREENING HIV SCREENING [facility] Start: 1992 HIV screening HIV Screening [facility] Bacteria identified in Urine by Culture BACTERIAL CULTURE, URINE Microbiology Routine Burning with urination Ordered: 09/12/2024 [facility] Work Phone: Comment on above: Ordered: 09/12/2024 Colonoscopy [facility] Patient Education ED Laceration, Hand: All Closures [facility] Work Phone: Patient referral [place] Work Phone: [facility] Immunizations Immunization Date Immunization Notes Care Provider James morales 05-09-2024 zoster vaccine recombinant Kenny Samano APRN.CNP Work Phone: [facility] 10-27-2023 Covid (Spikevax) Dr. Juanito Niño MD Work Phone: [facility] 10-27-2023 influenza, seasonal, injectable, preservative free Dr. Royce Niño MD Work Phone: [facility] 10-27-2023 influenza virus vaccine, unspecified formulation Kenny Samano STATION ENGINEER CHIEF.LAUNCHING PAD MECHANIC Work Phone: [facility] 02-22-2023 tetanus toxoid, reduced diphtheria toxoid, and acellular pertussis vaccine, adsorbed Kenny Samano STATION ENGINEER CHIEF.LAUNCHING PAD MECHANIC Work Phone: [facility] 12-01-2022 Covid (Spikevax) Dr. Juanito Niño Work Phone: [facility] 11-10-2022 influenza, injectabl e, quadrivalent, preservative free Dr. Mando Niño Work Phone: [facility] 11-13-2021 COVID-19 original vaccine, full dose, monovalent (MODERNA) Kenny Samano STATION ENGINEER CHIEF.LAUNCHING PAD MECHANIC Work Phone: [facility] 11-12-2021 influenza, injectabl e, quadrivalent, preservative free Dr. Mando Niño Work Phone: [facility] 11-12-2021 influenza, seasonal, injectable Dr. Mando Niño Work Phone: [facility] 10-29-2021 Covid Moderna Bivale nt Booster Dr. Mando Niño Work Phone: [facility] 12-05-2020 Covid (Moderna) Dr. Cain Niño Work Phone: [facility] 11-18-2020 influenza, injectabl e, quadrivalent, preservative free Dr. Mando Niño Work Phone: [facility] 11-18-2020 influenza, seasonal, injectable Dr. Mando Niño Work Phone: [facility] 11-18-2020 influenza, seasonal, injectable, preservative free Kenny Samano STATION ENGINEER CHIEF.LAUNCHING PAD MECHANIC Work Phone: [facility] 03-11-2020 Covid (Moderna) Dr. Cain Niño Work Phone: [facility] 02-12-2020 Covid (Moderna) Dr. Cain Niño Work Phone: [facility] 11-12-2019 influenza, injectabl e, quadrivalent, preservative free Dr. Mando Niño Work Phone: [facility] 11-12-2019 influenza, seasonal, injectable Dr. Mando Niño Work Phone: [facility] 11-13-2018 influenza, injectabl e, quadrivalent, contains preservative Kenny Samano APRN.CNP Work Phone: [facility] 11-08-2018 influenza, injectabl e, quadrivalent, preservative free Dr. Mando Niño Work Phone: [facility] 11-08-2018 influenza, seasonal, injectable Dr. Mando Niño Work Phone: [facility] 04-17-2018 tetanus toxoid, reduced diphtheria toxoid, and acellular pertussis vaccine, adsorbed Dr. Mando Niño Work Phone: [facility] 11-10-2017 influenza, injectabl e, quadrivalent, preservative free Dr. Mando Niño Work Phone: [facility] 11-10-2017 influenza, seasonal, injectable Dr. Mando Niño Work Phone: [facility] 11-09-2016 influenza, injectabl e, quadrivalent, preservative free Dr. Mando Niño Work Phone: [facility] 11-09-2016 influenza, seasonal, injectable Dr. Mando Niño Work Phone: [facility] 11-12-2015 influenza, injectabl e, quadrivalent, preservative free Dr. Mando Niño Work Phone: [facility] 11-12-2015 influenza, seasonal, injectable Dr. Mando Niño Work Phone: [facility] 11-13-2014 influenza, injectabl e, quadrivalent, preservative free Dr. Mando Niño Work Phone: [facility] 11-13-2014 influenza, seasonal, injectable Dr. Mando Niño Work Phone: [facility] 11-07-2013 influenza, injectabl e, quadrivalent, preservative free Dr. Mando Niño Work Phone: [facility] 11-07-2013 influenza, seasonal, injectable Dr. Mando Niño Work Phone: [facility] 04-08-2013 measles, mumps and rubella virus vaccine Dr. Madno Niño Work Phone: [facility] 04-08-[address] Mando Niño Work Phone: [facility] 03-05-2013 measles, mumps and rubella virus vaccine Kenny Samano STATION ENGINEER CHIEF.LAUNCHING PAD MECHANIC Work Phone: [facility] 03-05-2013 poliovirus vaccine, inactivated Kenny Samano STATION ENGINEER CHIEF.LAUNCHING PAD MECHANIC Work Phone: [facility] 03-05-[address] Mando Niño Work Phone: [facility] 02-26-2013 tetanus toxoid, reduced diphtheria toxoid, and acellular pertussis vaccine, adsorbed Dr. Mando Niño Work Phone: [facility] 12-08-2008 novel [id number], preservative-free, injectable Kenny Samano STATION ENGINEER CHIEF.LAUNCHING PAD MECHANIC Work Phone: [facility] Payers Date Payer Category Payer Self-pay [id number] 2023 Private Health Insurance [facility] [id number] 2023 Unknown [id number] 2016 Unknown [id number] Unknown [id number] Unknown [id number] Unknown [id number] Unknown [id number] Unknown [id number] Unknown [id number] Unknown [id number] Unknown [id number] Unknown [id number] Unknown [id number] Social History Date Type Detail Facility Tobacco smoking status NHIS Unknown if ever smoked [facility] Start: 1975 Sex Assigned At Not on file C [facility] Start: 10-19-2021 End: 05-01-2023 Tobacco smoking status NHIS Unknown if ever smoked [facility] Start: 1975 Sex Assigned At Female W [facility] Start: 12-06-2010 End: 06-30-2023 Tobacco smoking status NHIS Never smoked tobacco (finding) [facility] Start: 04-22-2024 End: 05-02-2024 Sex Female (finding) [facility] Start: 12-06-2010 Tobacco use and exposure Smokeless tobacco non-user [facility] Start: 09-12-2024 Alcoholic beverage intake Current non-drinker of alcohol (finding) [facility] Start: 09-12-2024 History of Social function [facility] Start: 09-12-2024 Tobacco use panel [facility] NEGATED: Highlighted row [facility] Goals Date Patient Goal Desired Activity /State Mental Status Date Assessment Result Facility 01-30-2023 Cognitive function Voice/Name [facility] Work Phone: 01-30-2023 Cognitive function Patient [place] tation Person;Place;Time [facility] Work Phone: 12-19-2022 Cognitive function Voice/Name;Touch/Shaki ng [facility] Work Phone: 08-29-2022 Cognitive function Voice/Name [facility] Work Phone: Clinical Notes 03-21-2022 to 09-15-2024 Telephone Encounter - Romy Grider MA - 09/15/2024 10:17 AM EDTTelephone Encounter - Romy Grider MA - 09/15/2024 10:17 AM EDTPKenny lynne APRN.LAUNCHING PAD MECHANIC - 09/12/2024 5:39 PM EDT Note Date & Type Note Facility 09-15-2024 Telephone encount er Note Patient given results and verbalized understanding of instructions given. Romy Grider MA [facility] 09-15-2024 Miscellaneous Notes Formattin g of this note might be different from the original. Patient given results and verbalized understanding of instructions given. Romy Grider MA ----- Message from Enrique Zepeda APRN.LAUNCHING PAD MECHANIC sent at 09/15/2024 7:59 AM EDT ----- Please inform patient that the urine culture did show infection. The antibiotic that was prescribed is appropriate. They should continue to take the antibiotic as directed and follow-up with their PCP. documented in this encounter [facility] 09-15-2024 Telephone encount er Note ----- Message from Enrique Zepeda APRN.LAUNCHING PAD MECHANIC sent at 09/15/2024 7:59 AM EDT ----- Please inform patient that the urine culture did show infection. The antibiotic that was prescribed is appropriate. They should continue to take the antibiotic as directed and follow-up with their PCP. [facility] 09-12-2024 Note HNO ID: [id number] Author: KENNY SAMANO APRN.CNP Service: ? Author Type: Nurse Practitioner Type: Progress Notes Filed: 09/12/2024 17:48 Note Text: URGENT CARE JESSICA Yap is a 49 year old female. Patient presents with: UTI: Burning, bladder spasms x today HPI Nontoxic-appearing 49-year-old female presents urgent care chief plaint possible UTI. Duration of symptoms today. Associated symptoms bladder spasms dysuria and hematuria. History of UTI last UTI in July of this year. Presents today for evaluation. OTC medications Pyridium. Denies any vaginal discharge or itching. No flank pain vomiting or abdominal pain. No fevers. Past medical history prescription medications allergies reviewed. Review of Systems Constitutional: Negative for chills, fatigue and fever. Gastrointestinal: Negative for abdominal distention, abdominal pain, nausea, rectal pain and vomiting. Genitourinary: Positive for dysuria, frequency and hematuria. Negative for difficulty urinating, dyspareunia, flank pain, genital sores, urgency, vaginal bleeding, vaginal discharge and vaginal pain. Objective BP 109/68 Pulse 67 Temp 36.6 ?C (97.9 ?F) Resp 18 Wt 79.6 kg (175 lb 7.8 oz) LMP 11/23/2010 SpO2 98% Physical Exam Constitutional: Appearance: Normal appearance. HENT: Mouth/Throat: Mouth: Mucous membranes are moist. Cardiovascular: Rate and Rhythm: Normal rate. Pulmonary: Effort: Pulmonary effort is normal. Breath sounds: Normal breath sounds. Abdominal: Tenderness: There is no abdominal tenderness. There is no right CVA tenderness, left CVA tenderness, guarding or rebound. Neurological: Mental Status: She is alert. {ASSESSMENT/PLAN: 1. Burning with urination - ICD9: 788.1, ICD10: R30.0 - UA DIP, URINE (POC) - BACTERIAL CULTURE, URINE Urine dip invalid due to Pyridium use. Treat for acute cystitis due to patient's history of UTIs and symptoms. Placed on Macrobid. Successfully taken this in the past. Patient was educated on supportive therapies. Patient will follow up with primary care provider as needed. Patient was instructed to immediately proceed to emergency room for any new, worsening, or symptoms lasting longer than anticipated. The patient's clinical presentation is otherwise unremarkable at this time. Based on exam and clinical finding, the patient is stable for discharge. Plan of care was discussed with patient. Patient verbalizes understanding and agrees to plan of care. This note was generated using [employer]Near software. It may contain errors in wording, punctuation, or spelling. Kenny Samano APRN.LAUNCHING PAD MECHANIC History and Record Review Clinical information obtained from an independent historian. History obtained from or confirmed by: parent. External record(s) reviewed: prior outpatient record. Disposition The patient was discharged. OTC Medications were advised: Procedures [facility] 09-12-2024 History of Presen t illness Narrative URGENT CARE JESSICA Yap is a 49 year old female. Patient presents with: UTI: Burning, bladder spasms x today HPI Nontoxic-appearing 49-year-old female presents urgent care chief plaint possible UTI. Duration of symptoms today. Associated symptoms bladder spasms dysuria and hematuria. History of UTI last UTI in July of this year. Presents today for evaluation. OTC medications Pyridium. Denies any vaginal discharge or itching. No flank pain vomiting or abdominal pain. No fevers. Past medical history prescription medications allergies reviewed. Review of Systems Constitutional: Negative for chills, fatigue and fever. Gastrointestinal: Negative for abdominal distention, abdominal pain, nausea, rectal pain and vomiting. Genitourinary: Positive for dysuria, frequency and hematuria. Negative for difficulty urinating, dyspareunia, flank pain, genital sores, urgency, vaginal bleeding, vaginal discharge and vaginal pain. Objective BP 109/68 Pulse 67 Temp 36.6 C (97.9 F) Resp 18 Wt 79.6 kg (175 lb 7.8 oz) LMP 11/23/2010 SpO2 98% Physical Exam Constitutional: Appearance: Normal appearance. HENT: Mouth/Throat: Mouth: Mucous membranes are moist. Cardiovascular: Rate and Rhythm: Normal rate. Pulmonary: Effort: Pulmonary effort is normal. Breath sounds: Normal breath sounds. Abdominal: Tenderness: There is no abdominal tenderness. There is no right CVA tenderness, left CVA tenderness, guarding or rebound. Neurological: Mental Status: She is alert. {ASSESSMENT/PLAN: 1. Burning with urination - ICD9: 788.1, ICD10: R30.0 - UA DIP, URINE (POC) - BACTERIAL CULTURE, URINE Urine dip invalid due to Pyridium use. Treat for acute cystitis due to patient's history of UTIs and symptoms. Placed on Macrobid. Successfully taken this in the past. Patient was educated on supportive therapies. Patient will follow up with primary care provider as needed. Patient was instructed to immediately proceed to emergency room for any new, worsening, or symptoms lasting longer than anticipated. The patient's clinical presentation is otherwise unremarkable at this time. Based on exam and clinical finding, the patient is stable for discharge. Plan of care was discussed with patient. Patient verbalizes understanding and agrees to plan of care. This note was generated using [employer]Near software. It may contain errors in wording, punctuation, or spelling. Kenny Samano APRN.LAUNCHING PAD MECHANIC History and Record Review Clinical information obtained from an independent historian. History obtained from or confirmed by: parent. External record(s) reviewed: prior outpatient record. Disposition The patient was discharged. OTC Medications were advised: Procedures documented in this encounter [facility] 07-14-2024 Evaluation note Diagnosis Onset Date Resolution UTI (urinary tract infection) resolved July 14, 2024 8 :14am [facility] Work Phone: 1(762) 664-540006-01-2025 Evaluation note* Diagnosis Onset Date Resolution Status Admit Date UTI (urinary tract infection) resolv ed July 14, 2024 8:14am UTI (urinary tract infection) acute September 28, 2024 8:12am [facility] Work Phone: 1(513) 737-926006-01-2025 [facility] [address], [address] [place] [address] OFFICE VISIT Date of Service: 07/14/24 MR#: [id number] Acct: [id number] Name: PRISCILA AYP Rep #: [id number] : 1975 Provider: MEHUL Luz Age/Sex: 49/F Location: [facility] [place] [facility] Status: Signed Intake Vital Signs 05/02/24 08:25 07/14/24 08:21 Height 5 ft Weight: 174 lb BMI 34.0 BP 108/69 114/70 Blood Pressure Location Lt brachial Rt brachial Position Sitting Sitting Respiration 16 15 Pulse 68 67 Pulse Source Monitor NIBP Temp 97.7 F L 97.9 F Temp Source Oral Pulse Oximetry (%) 96 98 Oxygen Delivery Method room air room air Intake Visit Reasons: CONCERN FOR UTI Chief Complaint: dysuria Gas Line Repairer Required: No Is patient in pain?: No Allergies sertraline (From Zoloft) Adverse Reaction (Verified 07/14/24 08:21) Eye twitching Is last menstrual period known: No Post menopausal: Yes Patient : No Have you fallen in the past year?: No Nurse's Note: dysuria x 2 days. denies abd pain, back pain, fever. concern for UTI. taking pyridium since last night. [facility] Medical History (Reviewed 05/02/24 @ 09:48 by Temitope Campuzano STUDIO OPERATION ENGINEER, STUDIO OPERATION ENGINEER-C) History of IBS Hypothyroid Wears contact lenses Alcohol use Restless legs Migraine headache Heartburn Non-smoker Shortness of breath on exertion Leg cramps History of pain when walking Normal Holter exam History of echocardiogram History of stress test Cardiology follow-up encounter Essential hypertension HTN (hypertension) Pure hypercholesterolemia Nonrheumatic mitral (valve) prolapse Cardiac murmur Tachycardia IBS (irritable bowel syndrome) Thyroid disease RUQ pain Depression Surgical History (Reviewed 05/02/24 @ 09:48 by Temitope Campuzano STUDIO OPERATION ENGINEER, STUDIO OPERATION ENGINEER-C) S/P lumbar microdiscectomy Hx of dilation and curettage H/O lithotripsy (~1995) History of oral surgery History of tubal ligation (~2000) Hx of tonsillectomy Family History (Reviewed 05/02/24 @ 09:48 by Temitope Campuzano STUDIO OPERATION ENGINEER, STUDIO OPERATION ENGINEER-C) Mother Heart disease Hypertension CAD (coronary artery disease) Atrial fibrillation Grandfather Heart disease Brother Myocardial infarction Sister Skin cancer Other Sleep apnea Social History (Reviewed 05/02/24 @ 09:48 by Temitope Campuzano STUDIO OPERATION ENGINEER, STUDIO OPERATION ENGINEER-C) adopted: No household members: family housing: house number of children: 1 current occupational status: employed 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 She denies abdominal pain, back pain, or fever. She does not taking Pyridium last night. She presents today for concerns regarding possible urinary tract infection. She underwent urine dip prior to evaluation that was positive for leukocyte esterase. She states her symptoms areworsening. ROS Const Constitutional: No body ache, chills, fatigue, fever(s) (no fever greater than 99.9 F), malaise, night sweats or other (rigors) Resp Respiratory: No shortness of breath Cardio Cardiology: No chest pain at rest or chest pain with exertion Gastro GI: No abdominal pain Genitourinary-Female: Positive for painful urination; No burning urination, urinary frequency, urinary urgency, blood in urine, suprapubic fullness or side pain Endo Endocrine: No fatigue Exam Const General: cooperative, healthy appearing, comfortable and no acute distress Orientation: alert, awake and oriented x3 Chest Chest palpation & inspection: normal inspection of the chest Resp Effort & Inspection: normal respiratory effort Auscultation: Bilateral: Clear to Auscultation Cardio Rhythm: other (Normal) Heart Sounds: S1 normal, S2 normal and no murmurs GI Inspection: normal to inspection and non-distended Auscultation: normal bowel sounds Palpation: soft and nontender General: No CVA tenderness Skin General: no rashes or lesions noted Results POC Urinalysis Dip (Clinic) Office Urine Color Chapman Last Edit by Ernestine Noonan on 07/14/24 08:28 Office Urine Clarity Clear Last Edit by Ernestine Noonan on 07/14/24 08:28 Office Urine Glucose Negative Last Edit by Ernestine Noonan on 07/14/24 08:28 Office Urine Ketones Negative Last Edit by Ernestine Noonan on 07/14/24 08:28 Off Ur Spec [place] 1.010 Last Edit by Ernestine Noonan on 07/14/24 08:28 Office Urine pH 6.5 Last Edit by Ernestine Noonan on 07/14/24 08:28 Office Urine Bilirubin Moderate (2+) Last Edit by Ernestine Noonan on 5 08:28 Office Urine Urobilinogen Negative Last Edit by Ernestine Noonan on 07/14/24 08:28 Office Urine Blood Negative Last Edit by Ernestine Noonan on 07/14/24 08:28 Office Urine Blood Hemolyzed Small Last Edit by Ernestine Noonan on 07/14/24 08:28 Office Urine Protein Negative Last Edit by Ernestine Noonan on 07/14/24 08:28 Office Urine Nitrate Positive Last Edit by Ernestine Noonan on 07/14/24 08:28 Off Ur Leukocytes Positive Last Edit by Ernestine Noonan on 07/14/24 08:28 Coding Level of Care Code Off vis,est,level 3 Diagnoses Acute cystitis without hematuria N30.00 Urinary tract infection type: acute cystitis Hematuria presence: without hematuria Assessment and Plan Assessment and Plan (1) UTI (urinary tract infection): Status: Resolved Qualifiers: Urinary tract infection type: acute cystitis Hematuria presence: without hematuria Qualified Code(s): N30.00 - Acute cystitis without hematuria Plan: Will treat as prescribed. Will send out to lab for culture to confirm diagnosisas well as guide future treatment options. This was reviewed with her and she is agreeable. Will begin antibiotic therapy today. Orders: Orders POC Urinalysis Dip (Clinic) Today R30.0 - Dysuria Culture, Urine Today R82.90 - Unspecified abnormal findings in urine Medications: New nitrofurantoin monohyd/m-cryst 100 mg (Macrobid) must administer with a meal/food 100 mg PO Q12H 7 days 14 caps 0RF Clinical Quality Measures Falls Risk Screening/Assistive Devices Have you fallen in the past year?: No 07/14/24 0851 P MEHUL> Date _ Ricardo CARVER Cosigner Signature: Date (if applicable) CC: Dr. Royce Niño MD ~ [facility]06-01-2025 Progress note Author Ricardo Luz [facility] Note Date/Time July 14, 2024 8:51a m [facility] [address], [address] [place] [address] OFFICE VISIT Date of Service: 07/14/24 MR#: [id number] Acct: [id number] Name: PRISCILA YAP Rep #: [id number] : 1975 Provider: MEHUL Luz Age/Sex: 49/F Location: [facility] [place] [facility] Status: Signed Intake Vital Signs 05/02/24 08:25 07/14/24 08:21 Height 5 ft Weight: 174 lb BMI 34.0 BP 108/69 114/70 Blood Pressure Location Lt brachial Rt brachial Position Sitting Sitting Respiration 16 15 Pulse 68 67 Pulse Source Monitor NIBP Temp 97.7 F L 97.9 F Temp Source Oral Pulse Oximetry (%) 96 98 Oxygen Delivery Method room air room air Intake Visit Reasons: CONCERN FOR UTI Chief Complaint: dysuria Gas Line Repairer Required: No Is patient in pain?: No Allergies sertraline (From Zoloft) Adverse Reaction (Verified 07/14/24 08:21) Eye twitching Is last menstrual period known: No Post menopausal: Yes Patient : No Have you fallen in the past year?: No Nurse's Note: dysuria x 2 days. denies abd pain, back pain, fever. concern for UTI. taking pyridium since last night. [facility] Medical History (Reviewed 05/02/24 @ 09:48 by Temitope Campuzano STUDIO OPERATION ENGINEER, STUDIO OPERATION ENGINEER-C) History of IBS Hypothyroid Wears contact lenses Alcohol use Restless legs Migraine headache Heartburn Non-smoker Shortness of breath on exertion Leg cramps History of pain when walking Normal Holter exam History of echocardiogram History of stress test Cardiology follow-up encounter Essential hypertension HTN (hypertension) Pure hypercholesterolemia Nonrheumatic mitral (valve) prolapse Cardiac murmur Tachycardia IBS (irritable bowel syndrome) Thyroid disease RUQ pain Depression Surgical History (Reviewed 05/02/24 @ 09:48 by Temitope Campuzano STUDIO OPERATION ENGINEER, STUDIO OPERATION ENGINEER-C) S/P lumbar microdiscectomy Hx of dilation and curettage H/O lithotripsy (~1995) History of oral surgery History of tubal ligation (~2000) Hx of tonsillectomy Family History (Reviewed 05/02/24 @ 09:48 by Temitope Campuzano STUDIO OPERATION ENGINEER, STUDIO OPERATION ENGINEER-C) Mother Heart disease Hypertension CAD (coronary artery disease) Atrial fibrillation Grandfather Heart disease Brother Myocardial infarction Sister Skin cancer Other Sleep apnea Social History (Reviewed 05/02/24 @ 09:48 by Temitope Campuzano STUDIO OPERATION ENGINEER, STUDIO OPERATION ENGINEER-C) adopted: No household members: family housing: house number of children: 1 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 She denies abdominal pain, back pain, or fever. She does not taking Pyridium last night. She presents today for concerns regarding possible urinary tract infection. She underwent urine dip prior to evaluation that was positive for leukocyte esterase. She states her symptoms areworsening. ROS Const Constitutional: No body ache, chills, fatigue, fever(s) (no fever greater than 99.9 F), malaise, night sweats or other (rigors) Resp Respiratory: No shortness of breath Cardio Cardiology: No chest pain at rest or chest pain with exertion Gastro GI: No abdominal pain Genitourinary-Female: Positive for painful urination; No burning urination, urinary frequency, urinary urgency, blood in urine, suprapubic fullness or side pain Endo Endocrine: No fatigue Exam Const General: cooperative, healthy appearing, comfortable and no acute distress Orientation: alert, awake and oriented x3 Chest Chest palpation & inspection: normal inspection of the chest Resp Effort & Inspection: normal respiratory effort Auscultation: Bilateral: Clear to Auscultation Cardio Rhythm: other (Normal) Heart Sounds: S1 normal, S2 normal and no murmurs GI Inspection: normal to inspection and non-distended Auscultation: normal bowel sounds Palpation: soft and nontender General: No CVA tenderness Skin General: no rashes or lesions noted Results POC Urinalysis Dip (Clinic) Office Urine Color Chapman Last Edit by Ernestine Noonan on 07/14/24 08:28 Office Urine Clarity Clear Last Edit by Ernestine Noonan on 07/14/24 08:28 Office Urine Glucose Negative Last Edit by Ernestine Noonan on 07/14/24 08:28 Office Urine Ketones Negative Last Edit by Ernestine Noonan on 07/14/24 08:28 Off Ur Spec [place] 1.010 Last Edit by Ernestine Noonan on 07/14/24 08:28 Office Urine pH 6.5 Last Edit by Ernestine Noonan on 07/14/24 08:28 Office Urine Bilirubin Moderate (2+) Last Edit by Ernestine Noonan on 5 08:28 Office Urine Urobilinogen Negative Last Edit by Ernestine Noonan on 07/14/24 08:28 Office Urine Blood Negative Last Edit by Ernestine Noonan on 07/14/24 08:28 Office Urine Blood Hemolyzed Small Last Edit by Ernestine Noonan on 07/14/24 08:28 Office Urine Protein Negative Last Edit by Ernestine Noonan on 07/14/24 08:28 Office Urine Nitrate Positive Last Edit by Ernestine Noonan on 07/14/24 08:28 Off Ur Leukocytes Positive Last Edit by Ernestine Noonan on 07/14/24 08:28 Coding Level of Care Code Off vis,est,level 3 Diagnoses Acute cystitis without hematuria N30.00 Urinary tract infection type: acute cystitis Hematuria presence: without hematuria Assessment and Plan Assessment and Plan (1) UTI (urinary tract infection): Status: Resolved Qualifiers: Urinary tract infection type: acute cystitis Hematuria presence: without hematuria Qualified Code(s): N30.00 - Acute cystitis without hematuria Plan: Will treat as prescribed. Will send out to lab for culture to confirm diagnosisas well as guide future treatment options. This was reviewed with her and she is agreeable. Will begin antibiotic therapy today. Orders: Orders POC Urinalysis Dip (Clinic) Today R30.0 - Dysuria Culture, Urine Today R82.90 - Unspecified abnormal findings in urine Medications: New nitrofurantoin monohyd/m-cryst 100 mg (Macrobid) must administer with a meal/food 100 mg PO Q12H 7 days 14 caps 0RF Clinical Quality Measures Falls Risk Screening/Assistive Devices Have you fallen in the past year?: No 07/14/24 0851 <Electronically signed by Ricardo CARVER> Date _ Ricardo CARVER Cosigner Signature: Date (if applicable) CC: Dr. Royce Niño MD ~ [facility] Work Phone: 1(384) 431-704302-25-2025 NotePap Smear Specimen AdequacyFebruary 2024 12:59amComment.Satisfactory for evaluation. No endocervical component is identified.[facility] A#[id number] Clinic South Pointe HospitalComment on above:Satisfactory for evaluation. No endocervical component is identified. 04-09-2024 NotePap Smear Specimen AdequacyFebruary 2024 12:59amComment. Satisfactory for evaluation. No endocervical component is identified.[facility] A#[id number] Fayette Medical CenterComment on above:Satisfactory for evaluation. No endocervical component is identified.04-09-2024 Evaluation note * Diagnosis Onset Date Resolution Status Admit Date Anxiety and depression acute Fe bruary 2024 3:18pm Encounter for routine gynecological examination noneactive Februa ry 2024 3:18pm [facility] Work Phone: 1(884) 307-666802-25-2025 Evaluation note* Diagnosis Onset Date Resolution Status Admit Date Anxiety and depression acute Fe bruary 2024 3:18pm Encounter for routine gynecological examination noneactive Februa 2024 3:18pm Nasal congestion acute May 022024 9:38am Obesity (BMI 30.0-34.9) chronic M arch 2024 9:38am POLO (obstructive sleep apnea) chroni c May 02, 2024 9:38am [facility] Work Phone: 1(401) 753-292702-25-2025 Evaluation note* Diagnosis Onset Date Resolution Status Admit Date Anxiety and depression acute Fe bruary 2024 3:18pm Encounter for routine gynecological examination noneactive Februa 2024 3:18pm Nasal congestion acute May 022024 9:38am Obesity (BMI 30.0-34.9) chronic M arch 2024 9:38am POLO (obstructive sleep apnea) chroni c May 02, 2024 9:38am UTI (urinary tract infection) resolv ed July 14, 2024 8:14am [facility] Work Phone: 1(185) 874-642204-05-2024 Discharge summary Author Miah Mai [facility] May 19, 2023 7:42am Note Date/Time May 19, 2023 7:43 am [facility] Physical Therapy [facility] [address] [place] [address]. [address] [place] [address] / REHABILITATION SERVICES DISCHARGE SUMMARY MR#: [id number] Acct: [id number] Name: PRISCILA YAP Rep #: [id number] : 1975 48 From: Miah Mai DPT, OCS, CSCS Referring DrMayito: Status: REG RCR Insurance: [email or web address] SELF PAY INSURANCE Discharge Summary D/C summary: It has been my pleasure to treat PRISCILA YAP referred by DIANA GUZMAN, with the diagnosis of Mar 15, 2023 Back Surgery for a total of 15 visit(s). Discharge Date: 05/19/23 Please see the following information for a summary of their discharge status. Subjective Subjective: Patient denies any pain on arrival, states the pain in LB is gone. Was cleared by her Surgeon yesterday. Pain LBP: Pain Intensity (Out of 10): 0 R LE: Pain Intensity (Out of 10): 0 Overall Improvement % Improvement: 75 Objective Objective/Function: Focus on general strength for HEP. Patient was provided a print out of exercises completed in clinic today. Spent a little extra time working on tech with RDL's with better tech following education and practice. Goals Goal 1:: Patient will report participation in home exercise program activities aminimum of 5 days per week, as adjunct to skilled physical therapy intervention in preparation for independent home management upon discharge. Goal Progress: Progressing Goal 2:: Patient will maintain proper posture t/o tx session to demo increased core s/s Goal Progress: Goal Met Goal 3:: Patient will report no radicular s.s Goal Progress: Goal Met Goal 4:: Patient will return to all normal ADL's without pain Goal Progress: Progressing Goal 5:: Patient will report 80% improvement Goal Progress: 50% Plan Plan: 2x/week for 2 weeks to get more aggressive with final strength program. Please do general strengths(squats, RDL, inchworms, heel raises, planks rows, side rows, pot stirs) and teach them for either HEP or gym program based on patients desire with pics/list in prep for d/c D/C Information Discharge Comments: Pt to continue with HEP 3x/week and call if concerns or questions, no f/u with doctor unless problems. d/c sentence: If there are questions or concerns regarding this patient's physical therapy, please feel free to call me at [phone]. Thank you for the referral of thispatient. Sincerely, Miah Mai, DPT, OCS, CSCS Balance/Gait/Functional tests Balance/Special Test Scores Oswestry Low Back Score: 6 Improvement % Improvement: 75 <Electronically signed by Miah Mai DPT, OCS, CSCS> 05/19/23 0742 CC: Dr. Mando Niño MD; DIANA CORCARLOS ~ EBG Signed [facility] Work Phone: [phone]) [phone] Discharge summary Author Carter Rodriguez [facility] April 26, 2023 8:02pm Note Date/Time April 26, 2023 6:4 5pm [facility] Medical Records Department [address] [place] [address] Emergency Department Summary 04/26/23 MR#: [id number] Acct: [id number] Name: PRISCILA YAP Rep #:[id number] : 1975 48 From: Carter Rodriguez MD PCP: Dr. Mando Niño MD Status: REG ER Location: ED HPI History of Present Illness Chief Complaint: Laceration Narrative Narrative: 48-year-old female presents with laceration to her left thumb that she sustainedprior to arrival when she was making dinner. She states she was cutting potatoes with a knife, and sustained a laceration to the medial aspect of her left thumb. It is flap-like in nature. She recently had back surgery and on her last visit to her primary care provider, she had her tetanus immunization updated. She is not on blood thinners. She is right-hand dominant. She presents because of the flap laceration to her left thumb. [facility] Medical History Alcohol use Cardiac murmur Cardiology follow-up encounter Depression Essential hypertension Heartburn History of echocardiogram History of pain when walking History of stress test HTN (hypertension) Hypothyroid IBS (irritable bowel syndrome) Leg cramps Migraine headache Non-smoker Nonrheumatic mitral (valve) prolapse Normal Holter exam Pure hypercholesterolemia Restless legs RUQ pain Shortness of breath on exertion Tachycardia Thyroid disease Wears contact lenses Home Medications linaclotide 145 mcg capsule 145 mcg PO DAILY 07/27/18 [History Last Taken Unknown] metoprolol succinate 25 mg tablet,extended release 24 hr 25 mg PO DAILY #90 tabs07/13/21 [Rx Last Taken 01/30/23] levothyroxine 75 mcg tablet 75 mcg PO DAILY 10/15/21 [History Last Taken 08/29/22] citalopram 40 mg tablet 40 mg PO DAILY #90 tabs 03/28/22 [Rx Last Taken Unknown] lisinopril 10 mg-hydrochlorothiazide 12.5 mg tablet 1 tab PO DAILY #90 tabs 04/26/22 [Rx Last Taken 01/30/23] meloxicam 7.5 mg tablet 7.5 mg PO DAILY 08/25/22 [History Last Taken Unknown] atorvastatin 20 mg tablet 20 mg PO QHS #90 tabs 02/27/23 [Rx Last Taken Unknown] calcium lactate 100 mg calcium tablet 100 mg PO DAILY 03/21/23 [History Last Taken Unknown] cyanocobalamin (vitamin B-12) 1,000 mcg capsule 1,000 mcg PO DAILY 03/21/23 [History Last Taken Unknown] folic acid 1 mg tablet 1 mg PO DAILY 03/21/23 [History Last Taken Unknown] multivitamin 1 tab PO DAILY 03/21/23 [History Last Taken Unknown] gabapentin 300 mg capsule 300 mg PO BID pain 04/03/23 [History Last Taken Unknown] oxycodone 5 mg capsule 5 mg PO QHS 04/03/23 [History Last Taken Unknown] Allergy/AdvReac Type Severity Reaction Status Date / Time sertraline [From Zoloft] AdvReac Eye Verified 04/26/23 17:38 twitching Family History Mother Heart disease Hypertension CAD (coronary artery disease) Atrial fibrillation Grandfather Heart disease Brother Myocardial infarction Sister Skin cancer Other Sleep apnea Surgical History H/O lithotripsy (~1995) History of oral surgery History of tubal ligation (~2000) Hx of dilation and curettage Hx of tonsillectomy S/P lumbar microdiscectomy Social History adopted: No household members: family housing: house number of children: 1 current occupational status: 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 HEENT: No sore throat. No neck pain. No loss of vision. No rhinorrhea. Cardiovascular: No chest pain. No palpitations. No pedal edema. Respiratory: No cough, no shortness of breath. Abdominal: No abdominal pain. No nausea. No vomiting. Genitourinary: No dysuria. No hematuria. Musculoskeletal: No myalgias. No arthralgias. Neurologic: No headaches. No dizziness. No lightheadedness. Skin: No rash. No change in color. Positive laceration to left thumb/side of left thumb. Continued bleeding. Psychiatric: No depression. No anxiety. EXAM Physical Exam Narrative Exam Narrative: Afebrile. Vital signs noted. HEENT: Normocephalic. Atraumatic. PERRL, EOMI. Neck soft and supple. No pointtenderness or step off. Cardiovascular: Regular rate and rhythm. No murmurs, rubs, or gallops appreciated. Respiratory: No tachypnea. Lungs clear to auscultation bilaterally. Gastrointestinal: Abdomen soft, nontender, with normoactive bowel sounds. No rebound or guarding. Neurological: Awake. Alert. Nonfocal, nonlateralizing. Skin: No rash. Normal color. No pallor. Musculoskeletal: No pedal edema. Full range of motion extremities. Inspection of the medial aspect of the left thumb shows a flap-like laceration that is lessthan 1 cm with small amount of bleeding around the edge. There is no nail involvement. No other bleeding diathesis. Const Vital Signs: 04/26/23 17:37 Temperature 98.3 F Temperature Source Temporal Pulse Rate 76 Respiratory Rate 14 Blood Pressure 138/83 H Blood Pressure Mean 101 Pulse Ox 98 Oxygen Delivery Method Room Air MDM MDM MDM Narrative Medical decision making narrative: Patient's tetanus immunization is up-to-date. Differential diagnosis is not applicable. I did discuss closure types with her, and given its flap-like nature and it being less than 1 cm, I do feel that trying to put 1 stitch in would be more traumatic and cause more bleeding. Her wound will be cleansed by the RN and Steri-Strip closure will be attempted with or without a pressure dressing. She was told the risk of infection and scarring and acknowledges an understanding. She is agreement that sutures are not necessarily amenable to this type of laceration as she had cut her finger previously and they could not stitch it closed correctly. Hence, I do not feel that this is amenable to suturing. Her wound was cleansed. Initial pressure dressing was applied by RN which did not stop the bleeding outof the corner of the flap like laceration. Gelfoam was applied along with pressure by the patient. Upon repeat examination at approximately 2000, it appears as if the bleeding has stopped. She was told not to disturb the Gelfoamfor at least 48 hours then she can change the outer dressing. I feel she can bedischarged to follow-up with her primary care provider for wound check in 2 days. Return instructions to the emergency department were reviewed. Disposition is discharged home in stable condition. Differential Diagnosis Differential Diagnosis: Not applicable Discharge Plan Triage Chief Complaint: Laceration ED Provider: Carter Rodriguez Dx/Rx/DC Orders Clinical Impression: Laceration of thumb Instructions: ED Laceration, Hand: All Closures Prescriptions: No Action levothyroxine 75 mcg tablet 75 mcg PO DAILY oxycodone 5 mg capsule 5 mg PO QHS multivitamin Tablet 1 tab PO DAILY folic acid 1 mg tablet 1 mg PO DAILY calcium lactate 100 mg calcium tablet 100 mg PO DAILY cyanocobalamin (vitamin B-12) 1,000 mcg capsule 1,000 mcg PO DAILY linaclotide 145 mcg capsule 145 mcg PO DAILY meloxicam 7.5 mg tablet 7.5 mg PO DAILY gabapentin 300 mg capsule 300 mg PO BID metoprolol succinate 25 mg tablet extended release 24 hr 25 mg PO DAILY Qty: 90 3RF citalopram 40 mg tablet 40 mg PO DAILY Qty: 90 3RF lisinopril-hydrochlorothiazide 10-12.5 mg tablet 1 tab PO DAILY Qty: 90 3RF atorvastatin 20 mg tablet 20 mg PO QHS Qty: 90 3RF Primary Care Provider: Mando Niño Referrals: Mando Niño MD [Primary Care Provider] - 2 Days for wound check Activity Restrictions/Additional Instructions: Do not disturb the Gelfoam for at least 48 hours. You may change the dressing at that time. Return with increased bleeding, new or worsening symptoms. Disposition Disposition: Home, Self Care What to do if you have Problems For any increased pain, shortness of breath, bleeding, nausea or vomiting, chestpain, or any unexpected problems, contact your Primary Care Provider. Call [facility] ([phone]) or report to the closest Emergency Room. Call 911 if necessary. 04/26/232001 <Electronically signed by Carter Rodriguez MD> Cosigner Signature (if applicable): CC: Dr. Mando Niño MD ~ Signed [facility] Work Phone: 1(508) 867-980112-18-2023 Procedure [facility] 12-19-2022 Procedure [facility]07-17-2023 Procedure note [facility]06-28-2023 Discharge summary Author Sonya Ruiz [facility] August 10, 2022 4:28pm Note Date/Time August 12, 2022 1:19 pm [facility] Physical Therapy [address] [place] [address] / REHABILITATION SERVICES DISCHARGE SUMMARY MR#: [id number] Acct: [id number] Name: PRISCILA YAP Rep #: [id number] : 1975 47 From: Sonya Matt Referring Dr.: Dr. Mando Niño MD Statu s: REG RCR Insurance: [facility] [employer] SELF PAY INSURANCE Patient Information Patient Information: PRISCILA YAP was seen in my office for initial evaluation on 06/21/22. The following Plan of Care was established for this patient: POC Established Initial Frequency: 2-3x /Week Initial Duration: 6 Weeks Anticipated Interventions Patient/Client Instruction: Educate patient on: Condition and Plan of Care For the Purpose of:: To decrease pain, To decrease swelling/inflammation, To increase ROM, To improve nutrient delivery to tissue, To increase oxygenation perfusion, To improve muscle performance and motor function, To improve ability to perform ADL's, To increase tolerance to activity/condition/position, To improve performance and independence with ADL's, To decrease level of supervision to perform tasks, To improve ability of physical actions for home/community/work/leisure, To improve gait and locomotor functions, To improvehealth of tissue, To decrease soft tissue restriction and To increase flexibility/ROM Therapeutic Exercise to Include: Strength training, Endurance training, Body mechanics, Postural training, Flexibilty training, Gait and locomotor training, Neuromotor development, In an aquatic setting, Passive ROM, Active ROM, Dynamic Lumbar Stabilization, Rolanda Exercises and Scapular Strength/Stabilization For the Purpose of:: To decrease pain, To increase ROM, To improve nutrient delivery to tissue, To increase oxygenation perfusion, To improve muscle performance and motor function, To improve ability to perform ADL's, To increasetolerance to activity/condition/position, To improve performance and independence with ADL's, To decrease level of supervision to perform tasks, To improve ability of physical actions for home/community/work/leisure, To improve gait and locomotor functions, To improve health of tissue, To decrease soft tissue restriction, To increase flexibility/ROM, To improve endurance and To improve balance Functional Training to Include: Gait training For the Purpose of:: To improve gait and locomotor functions Manual Therapy Techniques to Include: Mobilization, Passive ROM and Soft tissue mobilization For the Purpose of:: To decrease pain, To decrease swelling/inflammation, To increase ROM, To improve nutrient delivery to tissue, To improve muscle performance and motor function and To improve ability to perform ADL's IF ES: Yes Cryotherapy (ice pack, ice massage): Yes Thermo therapy (hot pack): Yes Ultrasound (thermal/non thermal): Yes For the Purpose of:: To decrease pain, To decrease swelling/inflammation, To increase ROM and To improve nutrient delivery to tissue Last Seen Last Seen: This patient was last seen in our office 06/27/22. Pertinent comments regardingtheir Physical therapy will appear below: DC PT. Pt having an MRI At this point I will be discontinuing this patient from physical therapy. I would be happy to see this patient again in the future if found appropriate by the physician. Thank you! SALBADOR Mccoy Balance/Gait/Functional tests Balance/Special Test Scores Oswestry Low Back Score: 22 <Electronically signed by Sonya Ruiz MPT> 08/10/22 1628 CC: Dr. Mando Niño MD ~ MT Signed [facility] Work Phone: 1(880) 882-291102-06-2023 Discharge summary Author Miah Mai [facility] March 21, 2022 7:57am Note Date/Time March 21, 2022 7 :57am [facility] Physical Therapy [facility] [address] [place] [address] / REHABILITATION SERVICES DISCHARGE SUMMARY MR#: [id number] Acct: [id number] Name: PRISCILA YAP Rep #: [id number] : 1975 47 From: Miah Mai DPT, OCS, CSCS Referring DrMayito: ALAN Foreman Status: REG RCR Insurance: [facility] DO NOT USE 02/13/22 SELF PAY INSURANCE PRISCILA YAP was seen in my office for initial evaluation on 12/03/21. The following Plan of Care was established for this patient: Orthotics: Shoe insert For the Purpose of:: To decrease pain This patient was last seen in our office 01/14/22. Pertinent comments regardingtheir Physical therapy will appear below: Pt seen for orthotic molding and then again for revision. At this point, we have revised her orthotics and distributed them to her and she will call if further concerns. i will discontinue her from therapy. At this point I will be discontinuing this patient from physical therapy. I would be happy to see this patient again in the future if found appropriate by the physician. Thank you! Miah Mai DPT, OCS, CSCS <Electronically signed by Miah Mai DPT, OCS, CSCS> 03/21/22 8936 CC: ALAN Foreman; Dr. Mando Niño MD ~ EBG Signed [facility] Work Phone: Evaluation note* Diagnosis Onset Date Resolution Status Cervicogenic headache acute Segmental and somatic dysfunction of cervical region acute Segmental and somatic dysfunction of lumbar region acute Segmental and somatic dysfunction of thoracic region acute Cervicogenic headache acute Segmental and somatic dysfunction of cervical region acute Segmental and somatic dysfunction of lumbar region acute Segmental and somatic dysfunction of thoracic region acute Back pain noneactive Tachycardia acute Nonrheumatic mitral (valve) prolapse chronic Pure hypercholesterolemia ch ronic Cervicogenic headache acute Segmental and somatic dysfunction of cervical region acute Segmental and somatic dysfunction of lumbar region acute Segmental and somatic dysfunction of thoracic region acute Back pain noneactive [facility] Work Phone: Evaluation noteNo assessment information available [facility] Work Phone: evaluation note* Diagnosis Onset Date Resolution Status Encounter for routine gynecological examination noneactive [facility] Work Phone: Evaluation note* Diagnosis Onset Date Resolution Status Encounter for routine gynecological examination noneactive Cervicogenic headache acute Segmental and somatic dysfunction of cervical region acute Segmental and somatic dysfunction of lumbar region acute Segmental and somatic dysfunction of thoracic region acute Back pain noneactive Back pain acute Segmental and somatic dysfunction of lumbar region acute Segmental and somatic dysfunction of pelvic region acute [facility] Work Phone: Evaluation note* Diagnosis Onset Date Resolution Status Cervicogenic headache acute Segmental and somatic dysfunction of cervical region acute Segmental and somatic dysfunction of lumbar region acute Segmental and somatic dysfunction of thoracic region acute Back pain noneactive Back pain acute Segmental and somatic dysfunction of lumbar region acute Segmental and somatic dysfunction of pelvic region acute [facility] Work Phone: Evaluation note* Diagnosis Onset Date Resolution Status POLO (obstructive sleep apnea) acute Restless legs acute Obesity (BMI 30.0-34.9) 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 [place] [facility] Work Phone: Evaluation note* Diagnosis Onset Date Resolution Status Nonrheumatic mitral (valve) prolapse chronic Pure hypercholesterolemia ch ronic Encounter for routine gynecological examination noneactive [facility] Work Phone: Evaluation note* Diagnosis Onset Date Resolution Status Nonrheumatic mitral (valve) prolapse chronic Pure hypercholesterolemia ch ronic Encounter for routine gynecological examination noneactive POLO (obstructive sleep apnea) acute Restless legs acute Obesity (BMI 30.0-34.9) [facility] Work Phone: Evaluation note* Diagnosis Burning with urination- Primary Dysuria documented in this encounter [facility] for referral (narrative)No reason for referral information availableWCleveland [facility] Work Phone: Chief Complaint and Reason for Visit Chief Complaint NEED ORDER Reeval LBP Back pain 1 Y FU WITH PFM 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 Reason for Visit Cervicogenic headach e Segmental and somatic dysfunction of cervical region Segmental and somatic dysfunction of lumbar region Segmental and somatic dysfunction of thoracic region Cervicogenic headache Segmental and somatic dysfunction of cervical region Segmental and somatic dysfunction of lumbar region Segmental and somatic dysfunction of thoracic region Back pain Tachycardia Nonrheumatic mitral (valve) prolapse Pure hypercholesterolemia Cervicogenic headache Segmental and somatic dysfunction of cervical region Segmental and somatic dysfunction of lumbar region Segmental and somatic dysfunction of thoracic region Back pain Chief Complaint Reeval LBP Back pain 1 Y FU WITH PFM 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 ORTHOTICS NEED ADJUSTED - NO ORDER WRITTEN EORDERS Reason for Visit Cervicogenic headach e Segmental and somatic dysfunction of cervical region Segmental and somatic dysfunction of lumbar region Segmental and somatic dysfunction of thoracic region Cervicogenic headache Segmental and somatic dysfunction of cervical region Segmental and somatic dysfunction of lumbar region Segmental and somatic dysfunction of thoracic region Back pain Tachycardia Nonrheumatic mitral (valve) prolapse Pure hypercholesterolemia Cervicogenic headache Segmental and somatic dysfunction of cervical region Segmental and somatic dysfunction of lumbar region Segmental and somatic dysfunction of thoracic region Back pain Chief Complaint ORTHOTICS NEED ADJUS MIC - NO ORDER WRITTEN EORDERS Chief Complaint ORTHOTICS NEED ADJUS MIC - NO ORDER WRITTEN EORDERS Annual ([employer]) SCREENING LEFT FOOT PAIN Enthesopathy, unspecified Reason for Visit Encounter for routin e gynecological examination Chief Complaint Annual ([employer]) SCREENING LEFT FOOT PAIN Enthesopathy, unspecified Back pain Back pain Segmental and somatic dysfunction of lumbar region Reason for Visit Encounter for routin e gynecological examination Cervicogenic headache Segmental and somatic dysfunction of cervical region Segmental and somatic dysfunction of lumbar region Segmental and somatic dysfunction of thoracic region Back pain Back pain Segmental and somatic dysfunction of lumbar region Segmental and somatic dysfunction of pelvic region Chief Complaint Annual ([employer]) SCREENING LEFT FOOT PAIN Enthesopathy, unspecified Back pain Back pain Segmental and somatic dysfunction of lumbar region LUMBAGO WITH SCIATICA L4 AREA ON RT / RX HERE LUMBAGO WITH SCIATICA Reason for Visit Encounter for routin e gynecological examination Cervicogenic headache Segmental and somatic dysfunction of cervical region Segmental and somatic dysfunction of lumbar region Segmental and somatic dysfunction of thoracic region Back pain Back pain Segmental and somatic dysfunction of lumbar region Segmental and somatic dysfunction of pelvic region Chief Complaint LEFT FOOT PAIN Enthe sopathy, unspecified Back pain Back pain Segmental and somatic dysfunction of lumbar region LUMBAGO WITH SCIATICA L4 AREA ON RT / RX HERE LUMBAGO WITH SCIATICA Reason for Visit Cervicogenic headach e Segmental and somatic dysfunction of cervical region Segmental and somatic dysfunction of lumbar region Segmental and somatic dysfunction of thoracic region Back pain Back pain Segmental and somatic dysfunction of lumbar region Segmental and somatic dysfunction of pelvic region Chief Complaint Back pain Back pain Segmental and somatic dysfunction of lumbar region LUMBAGO WITH SCIATICA L4 AREA ON RT / RX HERE LUMBAGO WITH SCIATICA Reason for Visit Cervicogenic headach e Segmental and somatic dysfunction of cervical region Segmental and somatic dysfunction of lumbar region Segmental and somatic dysfunction of thoracic region Back pain Back pain Segmental and somatic dysfunction of lumbar region Segmental and somatic dysfunction of pelvic region Chief Complaint LUMBAGO WITH SCIATIC A L4 AREA ON RT / RX HERE LUMBAGO WITH SCIATICA NON-RESTORATIVE SLEEP Sleep problems POLO; AUTO CPAP *DEVICE TAGGED Reason for Visit POLO (obstructive sle ep apnea) Restless legs Obesity (BMI 30.0-34.9) Chief Complaint NON-RESTORATIVE SLEE P Sleep problems POLO; AUTO CPAP *DEVICE TAGGED E ORDERS Reason for Visit POLO (obstructive sle ep apnea) Restless legs Obesity (BMI 30.0-34.9) Chief Complaint Sleep problems POLO; AUTO CPAP *DEVICE TAGGED E ORDERS Reason for Visit POLO (obstructive sle ep apnea) Restless legs Obesity (BMI 30.0-34.9) Chief Complaint 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 Annual ([employer]) MVP SCREENING SPINAL STENOSIS LUMBAR RX HERE Reason for Visit Nonrheumatic mitral (valve) prolapse Pure hypercholesterolemia Encounter for routine gynecological examination Chief Complaint 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9) Chief Complaint Admit Date Annual ([employer]) April 09, 2024 3:18pm SCREENING April 19, 2024 7:33 am Reason for Visit Admit Date Anxiety and depression April 09 3:18pm Encounter for routine gynecological exam ination April 09, 2024 3:18pm Chief Complaint Admit Date Annual ([employer]) April 09, 2024 3:18pm SCREENING April 19, 2024 7:33 am 1 Y FU May 02, 2024 9:3 8am Reason for Visit Admit Date Anxiety and depression April 09 3:18pm Encounter for routine gynecological exam ination April 09, 2024 3:18pm Nasal congestion May 02, 2024 9:3 8am Obesity (BMI 30.0-34.9) May 02, 2024 9:38am POLO (obstructive sleep apnea) April 9:38am Chief Complaint Admit Date Annual ([employer]) April 09, 2024 3:18pm SCREENING April 19, 2024 7:33 am 1 Y FU May 02, 2024 9:3 8am 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, 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 8:0 1am CONCERN FOR UTI July 14, 2024 8:14a m Reason for Visit Admit Date Anxiety and depression April 09 3:18pm Encounter for routine gynecological exam ination April 09, 2024 3:18pm Nasal congestion May 02, 2024 9:3 8am Obesity (BMI 30.0-34.9) May 02, 2024 9:38am POLO (obstructive sleep apnea) April 9:38am UTI (urinary tract infection) July 14, 2024 8:14am Chief Complaint Admit Date CONCERN FOR UTI July 14, 2024 8:14a m CONCERN FOR UTI INFECTION September 28, 8:12am Reason for Visit Admit Date UTI (urinary tract infection) July 14, 2024 8:14am Reason for Visit Admit Date UTI (urinary tract infection) July 14, 2024 8:14am UTI (urinary tract infection) September 8:12am Family History No Family History Records Found Relationship Condition Age at Onset Recorded Date/T vinod Not Specified Sleep apnea Unknown mother Cardiac disease Unknown Hypertension Unknown Coronary artery disease Unknown Atrial fibrillation Unknown grandfather Cardiac disease Unknown brother Myocardial infarction Unknown Relationship Condition Age at Onset Recorded Date/T vinod Not Specified Sleep apnea Unknown mother Cardiac disease Unknown Hypertension Unknown Coronary artery disease Unknown Atrial fibrillation Unknown grandfather Cardiac disease Unknown brother Myocardial infarction Unknown sister Malignant neoplasm of skin Unknown Advance Directives No Advanced Directives Records Found Advance Directive Response Recorded Date/ Time Living Will Yes June 14, 2018 6: 38am Power of [employer] Solution Architect Yes June 14, 2018 6:38am Advance Directive Response Recorded Date/ Time Living Will Yes June 14, 2018 5: 38am Power of [employer] Solution Architect Yes June 14, 2018 5:38am Advance Directive Response Recorded Date/ Time Name of Medical Power of [employer] Solution Architect SPOUSE August 25, 2022 12:26pm Living Will Yes August 25, 2022 12:26pm Power of [employer] Solution Architect Yes August 25 12:26pm Advance Directive Response Recorded Date/ Time Name of Medical Power of [employer] Solution Architect SPOUSE August 25, 2022 11:26am Living Will Yes August 25, 2022 11:26am Power of [employer] Solution Architect Yes August 25 11:26am Advance Directive Response Recorded Date/ Time Living Will Yes August 25, 2022 11:26am Power of [employer] Solution Architect Yes August 25 11:26am Advance Directive Response Recorded Date/ Time Name of Medical Power of [employer] Solution Architect Royce Blake en April 26, 2023 6:46pm Living Will Yes April 26, 2023 6:46pm Power of [employer] Solution Architect Yes April 25 6:46pm Advance Directive Response Recorded Date/ Time Living Will Yes June 28, 2023 9 :11am Power of [employer] Solution Architect Yes June 28, 2023 9:11am Advance Directive Response Recorded Date/ Time Living Will Yes April 26, 2023 6:46pm Do you have a Healthcare Power of [employer] Solution Architect? Yes April 26, 2023 6:46pm Living Will Yes June 28, 2023 9 :11am Do you have a Healthcare Power of [employer] Solution Architect? Yes June 28, 2023 9:11am Summary Purpose Additional Source Comments Source Comments (unrecognize d section and content) In the event this informatio n is protected by the [facility] Confidentiality of Alcohol and Drug Abuse Patient Records regulations: The Federal rules restrict any use of the information to criminally investigate or prosecute any alcohol or drug abuse patient.[facility] the event this information is protected by the Federal Confidentiality of Alcohol and Drug Abuse Patient Records regulations: The Federal rules restrict any use of the information to criminally investigate or prosecute any alcohol or drug abuse patient.[facility] the event this information is protected by the Federal Confidentiality of Alcohol and Drug Abuse Patient Records regulations: The Federal rules restrict any use of the information to criminally investigate or prosecute any alcohol or drug abuse patient.[facility] Care Teams (unrecognized sec tion and content) Team Status: Active Member Role Status Dates Dr. Mando Niño MD Family Provider Active Dr. Mando Niño MD Primary Care Provider Activ e Team Status: Inactive Member Role Status Dates Dr. Mando Niño MD Primary Care Provider Activ e Dr. Angeles Foreman DPM Attending Provider, Referring Pr ovider Active Team Status: Inactive Member Role Status Dates Dr. Mando Niño MD Primary Care Provider, Atte nding Provider Active Team Status: Inactive Member Role Status Dates Dr. Mando Niño MD Primary Care Provider, Refe rring Provider Active Kallie Chisholm STUDIO OPERATION ENGINEER, STUDIO OPERATION ENGINEER-C Attending Provider Active Team Status: Inactive Member Role Status Dates Dr. Mando Niño MD Primary Care Provider Activ e Kallie Chisholm STUDIO OPERATION ENGINEER, STUDIO OPERATION ENGINEER-C Attending Provider Active Team Status: Active Member Role Status Dates Dr. Mando Niño MD Primary Care Provider Activ e Dr. Angeles Foreman DPM Attending Provider, Referring Pr ovider Active Team Status: Inactive Member Role Status Dates Dr. Mando Niño MD Primary Care Provider, Refe rring Provider Active Dr. Hansa Pagan DC Attending Provider Active Team Status: Inactive Member Role Status Dates Dr. Mando Niño MD Primary Care Provider Activ e Dr. Hansa Pagan DC Attending Provider, Referring Pro vider Active Team Status: Active Member Role Status Dates Dr. Mando Niño MD Primary Care Provider, Attending Provider, Referring Provider Active Team Status: Inactive Member Role Status Dates Dr. Mando Niño MD Primary Care Provider, Attending Provider, Referring Provider Active Team Status: Inactive Member Role Status Dates Dr. Mando Niño MD Primary Care Provider Activ e Dr. Kenny Pace MD Attending Provider, Referring Provider Active Team Status: Inactive Member Role Status Dates Dr. Mando Niño MD Primary Care Provider, Refe rring Provider Active Temitope Campuzano STUDIO OPERATION ENGINEER, STUDIO OPERATION ENGINEER-C Attending Provider Active Team Status: Inactive Member Role Status Dates Dr. Mando Niño MD Primary Care Provider Activ e Temitope Campuzano STUDIO OPERATION ENGINEER, STUDIO OPERATION ENGINEER-C Attending Provider Active Team Status: Inactive Member Role Status Dates Dr. Mando Niño MD Primary Care Provider, Refe rring Provider Active Dr. Conor Casillas MD Attending Provider Active Team Status: Active Member Role Status Dates Dr. Mando Niño MD Primary Care Provider Activ e Dhara Brower Attending Provider Active Team Status: Active Member Role Status Dates Dr. Mando Niño MD Primary Care Provider Activ e Dr. Conor Casillas MD Attending Provider Active Team Status: Active Member Role Status Dates Dr. Mando Niño MD Primary Care Provider Activ e Health Risk Assessment Attending Provider, Referring P rovider Active Team Status: Inactive Member Role Status Dates Dr. Mando Niño MD Primary Care Provider Activ e Dr. Conor Casillas MD Attending Provider, Referring Pro vider Active Team Status: Active Member Role Status Dates Dr. Mando Niño MD Primary Care Provider Activ e MEGAN ORTIZ Attending Provider, Referring Prov ider Active Team Status: Inactive Member Role Status Dates Dr. Mando Niño MD Primary Care Provider Activ e Kallie Chisholm STUDIO OPERATION ENGINEER, STUDIO OPERATION ENGINEER-C Attending Provider, Referring Provider Active Team Status: Inactive Member Role Status Dates Dr. Mando Niño MD Primary Care Provider Activ e Carter Rodriguez MD Emergency Provider Active Team Status: Active Member Role Status Dates Dr. Royce Niño MD Family Provider Active Dr. Royce Niño MD Primary Care Provider Acti ve Team Status: Inactive Member Role Status Dates Dr. Royce Niño MD Primary Care Provider, Ref erring Provider Active Dr. Conor Casillas MD Attending Provider Active Team Status: Inactive Member Role Status Dates Dr. Royce Niño MD Primary Care Provider, Ref erring Provider Active Dr. Justen Jacobson MD Attending Provider Active Team Status: Inactive Member Role Status Dates Dr. Royce Niño MD Primary Care Provider, Ref erring Provider Active Kallie Chisholm STUDIO OPERATION ENGINEER, STUDIO OPERATION ENGINEER-C Attending Provider Active Team Status: Active Member Role Status Dates Dr. Royce Niño MD Primary Care Provider Acti ve Dhara Brower Attending Provider Active Team Status: Active Member Role Status Dates Dr. Royce Niño MD Primary Care Provider Acti ve Dr. Conor Casillas MD Attending Provider Active Team Status: Active Member Role Status Dates Dr. Royce Niño MD Primary Care Provider Acti ve Health Risk Assessment Attending Provider, Referring P rovider Active Team Status: Inactive Member Role Status Dates Dr. Royce Niño MD Primary Care Provider Acti ve Dr. Kenny Pace MD Attending Provider, Referring Provider Active Team Status: Inactive Member Role Status Dates Dr. Royce Niño MD Primary Care Provider Acti ve Dr. Conor Casillas MD Attending Provider, Referring Pro vider Active Team Status: Inactive Member Role Status Dates Dr. Royce Niño MD Primary Care Provider Acti ve DIANA, CORCARLOS Attending Provider, Referring Prov ider Active Team Status: Inactive Member Role Status Dates Dr. Royce Niño MD Primary Care Provider Acti ve Carter Rodriguez MD Attending Provider, Emergency Provid er Active Team Status: Inactive Member Role Status Dates Dr. Royce Niño MD Primary Care Provider Acti ve Kallie Chisholm STUDIO OPERATION ENGINEER, STUDIO OPERATION ENGINEER-C Attending Provider, Referring Provider Active Team Status: Active Member Role Status Dates Dr. Royce Niño MD Primary Care Provider Acti ve Team Status: Inactive Member Role Status Dates Dr. Royce Niño MD Primary Care Provider Acti ve Start: April 09, 2024 End: April 09, 2024 Dr. Royce Niño MD Referring Provider Active Start: April 09, 2024 End: April 09, 2024 Kallie Chisholm STUDIO OPERATION ENGINEER, STUDIO OPERATION ENGINEER-C Attending Provider Active Start: April 09, 2024 End: April 09, 2024 Team Status: Inactive Member Role Status Dates Dr. Royce Niño MD Primary Care Provider Acti ve Start: April 09, 2024 End: April 09, 2024 Kallie Chisholm STUDIO OPERATION ENGINEER, STUDIO OPERATION ENGINEER-C Attending Provider Active Start: April 09, 2024 End: April 09, 2024 Team Status: Active Member Role Status Dates Dr. Royce Niño MD Primary Care Provider Acti ve Start: April 19, 2024 Kallie Chisholm STUDIO OPERATION ENGINEER, STUDIO OPERATION ENGINEER-C Attending Provider Active Start: April 19, 2024 Kallie Chisholm STUDIO OPERATION ENGINEER, STUDIO OPERATION ENGINEER-C Referring Provider Active Start: April 19, 2024 Team Status: Inactive Member Role Status Dates Dr. Royce Niño MD Primary Care Provider Acti ve Start: April 19, 2024 End: April 19, 2024 Kallie Chisholm STUDIO OPERATION ENGINEER, STUDIO OPERATION ENGINEER-C Attending Provider Active Start: April 19, 2024 End: April 19, 2024 Kallie Chisholm STUDIO OPERATION ENGINEER, STUDIO OPERATION ENGINEER-C Referring Provider Active Start: April 19, 2024 End: April 19, 2024 Team Status: Inactive Member Role Status Dates Dr. Royce Niño MD Primary Care Provider Acti ve Start: May 02, 2024 End: May 02, 2024 Dr. Royce Niño MD Referring Provider Active Start: May 02, 2024 End: May 02, 2024 Temitope Campuzano STUDIO OPERATION ENGINEER, STUDIO OPERATION ENGINEER-C Attending Provider Active Start: May 02, 2024 End: May 02, 2024 Team Status: Active Member Role Status Dates Dr. Royce Niño MD Primary Care Provider Acti ve Start: May 06, 2024 Health Risk Assessment Attending Provider Active Start: May 06, 2024 Health Risk Assessment Referring Provider Active Start: May 06, 2024 Team Status: Inactive Member Role Status Dates Dr. Royce Niño MD Primary Care Provider Acti ve Start: July 14, 2024 End: July 14, 2024 Dr. Royce Niño MD Referring Provider Active Start: July 14, 2024 End: July 14, 2024 Ricardo Luz STUDIO OPERATION ENGINEER, STUDIO OPERATION ENGINEER-C Attending Provider Active S tart: July 14, 2024 End: July 14, 2024 Team Status: Inactive Member Role Status Dates Dr. Royce Niño MD Primary Care Provider Acti ve Start: July 15, 2024 End: July 15, 2024 Ricardo Luz STUDIO OPERATION ENGINEER, STUDIO OPERATION ENGINEER-C Attending Provider Active S tart: July 15, 2024 End: July 15, 2024 Double Cut Off Saw Operator Relationship Specialty Start Date End Date Royce Niño MD [address] [place] [address] PCP - General Family Medicine 09/01/10 Double Cut Off Saw Operator Relationship Specialty Start Date End Date Royce Niño MD [address] [place], [place] [id number] PCP - General Family Medicine 09/01/10 Team Status: Active Member Role/Relationship Status Dates Dr. Royce Niño MD Primary Care Provider Acti ve Team Status: Inactive Member Role/Relationship Status Dates Dr. Royce Niño MD Primary Care Provider Acti ve Start: July 14, 2024 End: July 14, 2024 Dr. Royce Niño MD Referring Provider Active Start: July 14, 2024 End: July 14, 2024 Ricardo Luz STUDIO OPERATION ENGINEER, STUDIO OPERATION ENGINEER-C Attending Provider Active S tart: July 14, 2024 End: July 14, 2024 Team Status: Inactive Member Role/Relationship Status Dates Dr. Royce Niño MD Primary Care Provider Acti ve Start: July 15, 2024 End: July 15, 2024 Ricardo Luz STUDIO OPERATION ENGINEER, STUDIO OPERATION ENGINEER-C Attending Provider Active S tart: July 15, 2024 End: July 15, 2024 Team Status: Inactive Member Role/Relationship Status Dates Dr. Royce Niño MD Primary Care Provider Acti ve Start: September 28, 2024 End: September 28, 2024 Dr. Royce Niño MD Referring Provider Active Start: September 28, 2024 End: September 28, 2024 JONNA Montanez Attending Provider Active Start: September 28, 2024 End: September 28, 2024 Team Status: Inactive Member Role/Relationship Status Dates Dr. Royce Niño MD Primary Care Provider Acti ve Start: September 29, 2024 End: September 29, 2024 JONNA Lindsay Attending Provider Active Sta rt: September 29, 2024 End: September 29, 2024 Reason for Visit (unrecogniz ed section and content) Reason Comments UTI Burning, bladder spa sms x today Reason Onset Date Comments Results 09/15/2024 INFORMATION SOURCE (unrecogn ized section and content) DATE CREATED AUTHOR 09/15/2024 [facility] DATE CREATED AUTHOR AUTHOR'S ORGANIZ ATION 10/06/2024 [facility] FOR RECORDS PERTAINING TO PATIENTS WHO ARE [...] BE BASED ON THE PRIMARY CLINICAL RECORDS. [employer] provides no warranty or guarantee of the accuracy or completeness of information in this document.
--- NOTE | 2024-10-30 19:08 | CA.SCORE ---
Calcium Scoring Date of Study:: 10/16/24 Indications Indications: HTN Coronary Calcium Scoring: High-resolution Computed Tomographic imaging of the chest was performed on [10/16/24 ], with particular attention paid to the coronary arteries. Images from the examination were analyzed for the presence and extent of coronary artery calcification , using coronary calcium quantification software. The patient tolerated the procedure well and there were no complications. The results of the coronary calcification analysis are provided below. Findings Coronary Artery Left Main (LM): 0 Left Anterior Descending (LAD): 0 Left Circumflex (LCX): 0 Right Coronary Artery (RCA): 0 Total Agatston Score: 0 Percentile Rankin% Calcium Scoring Interpretation: Different methods to categorize the overall amount of coronary plaque. Overall amount CAC SIS Visual of coronary plaque P1 Mild -100 <2 1-2 vessels with mild amount of plaque P2 Moderate 101-300 3-4 1-2 vessels with moderate amount, 3 vessels with mild amount of plaque P3 Severe 301-999 5-7 3 vessels with moderate amount, 1 vessel with severe amount of plaque P4 Extensive >1000 >8 2-3 vessels with severe amount of plaque Conclusion: No atherosclerotic plaquing noted
== END | disposition home or self-care (01) ==
PROVIDERS: PCP Family Medicine; Referring Provider Internal Medicine Cardiovascular Disease; Visit Provider Internal Medicine Cardiovascular Disease
DX: I10 Essential (primary) hypertension (principal); E78.00 Pure hypercholesterolemia, unspecified; Z82.41 Family history of sudden cardiac death; Z82.49 Family history of ischemic heart disease and other diseases of the circulatory system
CPT/HCPCS: 75571; 76380

== ENCOUNTER → 2024-12-27 | Outpatient (CLI) | payer OTHER, SELFPAY ==
[2024-12-27 09:21] LABS: Vitamin D,25 Hydroxy 33.1 ng/mL (30-100)
== END | disposition home or self-care (01) ==
LOC: LAB 07:43
PROVIDERS: PCP Family Medicine; Referring Provider Obstetrics & Gynecology; Visit Provider Obstetrics & Gynecology
DX: Z13.21 Encounter for screening for nutritional disorder (principal); E66.9 Obesity, unspecified
CPT/HCPCS: 36415; 82306; 83036; 84443